=== PATIENT | male | born 1940 | race Caucasian/White ===

== ENCOUNTER 2020-06-04 09:22 | Observation (INO) | payer MEDICARE, OTHER, SELFPAY ==
[2020-06-04] VITALS (11 sets, daily range): BP systolic 111–154; BP diastolic 63–90; PULSE 68–90; RESP 16–21; TEMP 36.3–37; O2SAT 94–99; BMI 25.8
--- NOTE | 2020-06-04 09:24 | CT_ITS ---
WS: [id number] CT HEAD TECHNIQUE: Noncontrast CT of the head obtained from the skullbase to the vertex. CLINICAL INFORMATION: AMS COMPARISON: None. DLP: [id number] scans at [facility] use at least one of these dose optimization techniques: automat ed exposure control; mA and/or kV adjustment per patient size (includes targeted exams where dose is matched to clinical indication); or iterative reconstruction. FINDINGS: No evidence of intracranial hemorrhage or mass effect. Ventricular system and basal cisterns are mccann nt. Moderate small vessel changes with moderate parenchymal volume loss. Chronic lacunar infarcts lef t caudate, right basal ganglia and right thalamus. No extra-axial fluid collections. No evidence of m ass or mass effect. Normal zimmerman-white differentiation. Paranasal sinuses and mastoid air cells are well aerated. Small retention cyst right frontal sinus. . Normal visualized soft tissues. CT/CT head wo con* [id number] IMPRESSION: 1. No evidence of intracranial hemorrhage or mass effect. 2. Moderate small vessel changes with moderate parenchymal volume loss. 3. Chronic lacunar infarcts described above. 4. No acute intracranial findings.
--- NOTE | 2020-06-04 09:24 | XR_ITS ---
WS: [id number] Portable AP upright chest, 06/04/2020 Clinical Data: AMS Comparison: None. Findings: No nodules, masses or effusions are seen. The heart is normal. The pulmonary vascularity is not increased. No pneumonia or pneumothorax is seen. The aortic arch and descending aorta show calci fication and tortuosity. Midline sternotomy sutures are present. There are monitor leads on the chest wall. XR/XR chest 1V portable [id number] Impression: Atherosclerosis.
--- NOTE | 2020-06-04 09:26 | ECG_ITS ---
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 Measurements Intervals [place] Rate: 85 P: 51 W[place]: 191 QRS: -29 QRSD: 101 T: 75 QT: 385 QTc: 459 Interpretive Statements SINUS RHYTHM BORDERLINE LEFT AXIS DEVIATION [QRS AXIS < -20] MODERATE VOLTAGE CRITERIA FOR LVH, CONSIDER NORMAL VARIANT [MEETS CRITERIA IN ONE OF: R(aVL), S(V1), R(V5), R(V5/V6)+S(V1)] NONSPECIFIC T-WAVE ABNORMALITY No previous ECG available for comparison Electronically Signed On 06-05-2020 19:14:41 RELIEF MAP MODELER by Nika Bennett M.D. [email or web address] [facility] [facility].[email or web address]/OM/[id number].pdf
[2020-06-04 10:01] LABS: Basophils % 0.4 %; Eosinophils % 0.1 %; Hematocrit 45.6 % (42.0-52.0); Hemoglobin 16.1 g/dL (11.7-16.6); Lymphocytes # 1.7 10^3/uL (0.8-4.8); Lymphocytes % 15.1 %; Mean Corpuscular HGB Conc 35.3 g/dL (30.0-36.0); Mean Corpuscular Hemoglobin 31.6 pg (28.0-34.0); Mean Corpuscular Volume 89.6 fL (80-94); Mean Platelet Volume 10.1 fL (7.4-10.4); Monocytes # 0.7 10^3/uL (0.2-0.9); Monocytes % 5.9 %; Neutrophils # 8.91 10^3/uL (1.8-7.7); Nucleated Red Blood Cells % 0 %; Platelet Count 160 10^3/cmm (130-400); Red Blood Count 5.09 10^6/uL (4.1-5.3); Red Cell Distribution Width 12.2 % (12.1-15.1); White Blood Count 11.4 10^3/uL (4.0-10.0)
--- NOTE | 2020-06-04 10:12 | PC.PHAR ---
PTS STATES THE PT TAKES THE MEDICATIONS ENTERED-PT UNABLE TO VERIFY MEDICATIONS-PT BROUGHT IN MEDICATION BOTTLES ALSO-PT BROUGHT IN EMPTY BOTTLES FOR PREDNISONE 10MG FILLED ON 03/23/20 9 D/S AND ACYCLOVIR 800MG FILLED ON 03/23/20 7 D/S-PT BROUGHT IN ASPIRIN 325MG PTS THOUGHT THE PT TOOK 81MG ASPIRIN
[2020-06-04 10:16] LABS: INR 1.01 (0.8-1.2)
[2020-06-04 10:17] LABS: Partial Thromboplastin Time 30.2 SECONDS (23.9-36.7)
[2020-06-04 10:33] LABS: Alanine Aminotransferase 16 U/L (0-41); Albumin Level 4.1 g/dL (3.5-5.2); Alkaline Phosphatase 76 IU/L (40-130); Aspartate Amino Transferase 18 U/L (0-40); Blood Urea Nitrogen 14 mg/dL (8-23); Carbon Dioxide 23 mmol/L (22-29); Chloride 103 mmol/L (98-107); Creatinine Clr Calc Pharmacy 63.7157; Globulin 2.9 g/dL (1.3-4.6); Glucose 114 mg/dL (65-115); Osmolality Calculated 291 mOsm/kg (285-295); Sodium 140 mmol/L (136-145); Total Bilirubin 0.6 mg/dL (0.15-1.2)
[2020-06-04 10:36] LABS: Alcohol Level < 10 mg/dL (0-10)
[2020-06-04 11:08] LABS: Add Urine Microscopic? YES; Bilirubin Urine Neg (Negative); Blood Urine 2+ (Negative); Glucose Urine UA Norm (Normal); Ketones Urine Negative (Negative); Leukocyte Esterase Urine Negative (Negative); Nitrate Urine Negative (Negative); Protein Urine Neg (Negative); Specific Gravity, Urine 1.015 (1.005-1.030); Urine Appearance Clear (CLEAR); Urine Color Yellow (Yellow); Urobilinogen Urine Norm (Negative); pH Urine 6 (5-7)
[2020-06-04 11:12] LABS: Amphetamines Screen Urine Negative (Negative); Barbiturates Screen Urine Negative (Negative); Benzodiazepines Screen Urine Negative (Negative); Cocaine Screen Urine Negative (Negative); Opiate Screen Urine Negative (Negative); PCP Screen Urine Negative (Negative); THC Screen Urine Negative (Negative)
[2020-06-04 11:28] LABS: RBC Urine 0-4 /hpf (0-2)
[2020-06-04 11:29] LABS: Add Urine Culture? No; Bacteria Urine TRACE /hpf; Squamous Epithelial Cell Urine 0-4 /hpf (0-5)
--- NOTE | 2020-06-04 11:50 | MR_ITS ---
WS: [id number] MRI HEAD WITHOUT CONTRAST TECHNIQUE: Sagittal T1, T2 axial, T2 axial FLAIR, axial and coronal T1 images, axial susceptibility w eighted imaging, axial diffusion weighted images, and coronal T2 images were obtained. CLINICAL INFORMATION: seizure COMPARISON: CT June 04, 2020 FINDINGS: 2 or 3 tiny foci of restricted diffusion in the right greater than left periventricular white matter consistent with tiny acute foci of ischemia. No significant mass effect or midline shift. Advanced sm all vessel changes with moderate parenchymal volume loss. Small vessel changes in the farrah. Normal posterior fossa. Mild stenosis in the distal right intracranial vertebral artery. Otherwise no rmal vascular flow voids at the skull base. No extra-axial fluid collections. Paranasal sinuses and m astoid air cells are well aerated. 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 Normal optic sandi sm and pituitary infundibulum. Chronic focus of hemosiderin on the susceptibility weighted imaging in the right frontal lobe. MR/MR head wo con* [id number] IMPRESSION: 1. 2 or 3 tiny foci of acute ischemia in the nelson radiata periventricular wh ite matter 2. No other foci of restricted diffusion. 3. No significant mass effect or midline shift. 4. Advanced small vessel changes with moderate parenchymal volume loss. Small vessel changes in the farrah. 5. Chronic lacunar infarct left caudate. 6. Mild stenosis in the distal right intracranial vertebral artery. Otherwise normal vascular flow voids at the skull base. 7. 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 8. Small chronic focus of hemosiderin in the right frontal lobe measuring 4 mm . Notified Aj Bernstein MD at 06/04/2020 3:07 PM.
--- NOTE | 2020-06-04 11:51 | ED_ITS ---
HPI - Altered Mental Status General: Chief Complaint: Altered Mental Status Stated Complaint: AMS Time Seen by Provider: 06/04/20 09:24 Source: family and EMS History of Present Illness: HPI narrative: Patient presents to emergency de partment with complaint of altered mental status. According to the she found him on the floor this morning unresponsive. He was foaming at the mouth and shaking. No history of seizures in the past. He had abrasions and bruising all over his face and head. Patient unable to give us any history. He is very altered and confused. He cannot seem to remember anything past about 10 seconds. Review of Systems General: Reports: ROS unobtainable due to medical condition PFS ED PFS: Medical History (Updated 06/04/20 @ 13:22 by Alex Ordonez MD) Dyslipidemia Hypertension Surgical History History of mitral valve replacement with bioprosthetic valve Family History (Updated 06/04/20 @ 13:12 by Alex Ordonez MD) Mother CAD (coronary artery disease) Father , Old age, in his 90s No problems noted. Social History (Updated 06/04/20 @ 13:12 by Alex Ordonez MD) Smoking and tobacco status: never smoked Alcohol intake: never Physical Exam Const: COMMON NORMALS: no acute distress, average body habitus, patient oriented x3, no limitations, healthy appearing, alert and well nourished ORIENTATION/CONSCIOUSNESS: not oriented to person, not oriented to place and not oriented to time HENMT: COMMON NORMALS: normocephalic, atraumatic, hearing grossly normal bilaterally, external ears normal, EAC's normal, TM's normal bilaterally, Normal external nose present, Normal nasal mucous membranes and turbinates present, moist oral mucous membranes, oropharynx normal, dentition normal and gingiva normal HEAD & SCALP: normocephalic and atraumatic NOSE: Normal external nose present and Normal nasal mucous membranes and turbinates present EXTERNAL EAR: Yes external ears normal EXTERNAL AUDITORY CANAL: EAC's normal TYMPANIC MEMBRANE: TM's normal bilaterally Eye: COMMON NORMALS: Equal, round and reactive pupils present, EOMs intact bilaterally, conjunctivae normal, no scleral icterus, no papilledema, normal visual lang by confrontation and fundi normal bilaterally CONJUNCTIVA: Yes conjunctivae normal PUPIL: Yes Equal, round and reactive pupils present DIRECT OPHTHALMOSCOPY: Yes no papilledema and Yes fundi normal bilaterally Neck/C-Spine: COMMON NORMALS: full ROM, no lymphadenopathy, supple, no meningeal signs, Thyroid normal and No carotid bruits THYROID: Thyroid normal Resp: COMMON NORMALS: normal respiratory effort, No retractions, No use of accessory muscles, clear to auscultation bilaterally and percussion normal AUSCULTATION: clear to auscultation bilaterally PERCUSSION: percussion normal GI: COMMON NORMALS: Normal to inspection, nondistended, normoactive bowel sounds present, Soft to palpation, non-tender, No hepatosplenomegaly present, no masses and no bruits PALPATION: Yes Soft to palpation and Yes No hepatosplenomegaly present Extremity: COMMON NORMALS: normal to inspection, full ROM, capillary refill normal, no joint enlargement, no clubbing, cyanosis or edema, no calf tenderness and no pedal edema Neuro: COMMON NORMALS: patient oriented x3 SENSORIUM/ORIENTATION: Yes alert, No oriented to person, No oriented to place and No oriented to time MENINGEAL SIGNS: Yes no meningeal signs CRANIAL NERVES: Yes CN normal except as noted COORDINATION/BALANCE: [id number] test normal SPEECH: speech normal SENSORY EXAM: Yes extremities MOTOR EXAM: 5/5 motor strength present throughout COORDINATION: [id number] test normal Course Vital Signs: Vital signs: Vital Signs Temperature 98.6 F 06/04/20 09:22 Pulse Rate 68 06/04/20 13:00 Respiratory Rate 18 06/04/20 13:00 Blood Pressure 153/90 06/04/20 13:00 Pulse Oximetry 99 06/04/20 13:00 MDM - Altered Mental Status MDM Narrative: Medical decision making narrative: Patient is significantly improved since here in the ER. No longer disoriented. I suspect patient had a seizure although no history of seizures in the past. The patient was just very postictal upon initial arrival in the ER. Will admit patient to the hospitalist for further evaluation and treatment of new onset seizures. Given IV Keppra here in the ER. Lab Data: Labs: Lab Results 06/04/20 06/04/20 06/04/20 Range/Units 09:50 09:50 09:50 WBC 11.4 H (4.0-10.0) 10^3/ uL RBC 5.09 (4.1-5.3) 10^6/u L Hgb 16.1 (11.7-16.6) g/dL Hct 45.6 (42.0-52.0) % MCV 89.6 (80-94) fL MCH 31.6 (28.0-34.0) pg MCHC 35.3 (30.0-36.0) g/dL RDW 12.2 (12.1-15.1) % Plt Count 160 (130-400) 10^3/c mm MPV 10.1 (7.4-10.4) fL Neut % (Auto) 78.0 % Lymph % (Auto) 15.1 % [place] % (Auto) 5.9 % Eos % (Auto) 0.1 % Baso % (Auto) 0.4 % Neut # (Auto) 8.91 H (1.8-7.7) 10^3/u L Lymph # (Auto) 1.7 (0.8-4.8) 10^3/u L [place] # (Auto) 0.7 (0.2-0.9) 10^3/u L Eos # (Auto) 0.0 (0.0-0.8) 10^3/u L Baso # (Auto) 0.0 (0.0-0.1) 10^3/u L Nucleated RBC % (a uto) 0 % Nucleated RBCs # 0.0 /100WBC PT 13.60 (12.1-14.9) SECO NDS INR 1.01 (0.8-1.2) APTT 30.2 (23.9-36.7) SECO NDS Sodium 140 (136-145) mmol/L Potassium 4.0 (3.5-5.1) mmol/L Chloride 103 (98-107) mmol/L Carbon Dioxide 23 (22-29) mmol/L Anion Gap 18.0 (5-19) BUN 14 (8-23) mg/dL Creatinine 1.0 (0.7-1.2) mg/dL GFR Calculation Not Reportable Glucose 114 (65-115) mg/dL Calculated Osmolal ity 291 (285-295) mOsm/k g Calcium 9.0 (8.5-10.5) mg/dL Total Bilirubin 0.6 (0.15-1.2) mg/dL AST 18 (0-40) U/L ALT 16 (0-41) U/L Alkaline Phosphata se 76 (40-130) IU/L Total Protein 7.0 (6.6-8.7) g/dL Albumin 4.1 (3.5-5.2) g/dL Globulin 2.9 (1.3-4.6) g/dL Urine Color (Yellow) Urine Appearance (CLEAR) Urine pH (5-7) Ur Specific Gravit y (1.005-1.030) Urine Protein (Negative) Urine Glucose (UA) (Normal) Urine Ketones (Negative) Urine Blood (Negative) Urine Nitrate (Negative) Urine Bilirubin (Negative) Urine Urobilinogen (Negative) mg/dL Ur Leukocyte Lyn ase (Negative) Urine RBC (0-2) /hpf Urine WBC (0-5) /hpf Ur Squamous Epith Cells (0-5) /hpf Amorphous Sediment Urine Bacteria (NONE) /hpf Urine Opiates Scre en (Negative) ng/mL Ur Barbiturates Sc reen (Negative) ng/mL Ur Phencyclidine S crn (Negative) ng/mL Ur Amphetamines Sc reen (Negative) ng/mL U Benzodiazepines Scrn (Negative) ng/mL Urine Cocaine Scre en (Negative) ng/mL U Marijuana (THC) Screen (Negative) ng/mL Ethyl Alcohol < 10 (0-10) mg/dL 06/04/20 06/04/20 Range/Units 10:48 10:48 WBC (4.0-10.0) 10^3/ uL RBC (4.1-5.3) 10^6/u L Hgb (11.7-16.6) g/dL Hct (42.0-52.0) % MCV (80-94) fL MCH (28.0-34.0) pg MCHC (30.0-36.0) g/dL RDW (12.1-15.1) % Plt Count (130-400) 10^3/c mm MPV (7.4-10.4) fL Neut % (Auto) % Lymph % (Auto) % [place] % (Auto) % Eos % (Auto) % Baso % (Auto) % Neut # (Auto) (1.8-7.7) 10^3/u L Lymph # (Auto) (0.8-4.8) 10^3/u L [place] # (Auto) (0.2-0.9) 10^3/u L Eos # (Auto) (0.0-0.8) 10^3/u L Baso # (Auto) (0.0-0.1) 10^3/u L Nucleated RBC % (a uto) % Nucleated RBCs # /100WBC PT (12.1-14.9) SECO NDS INR (0.8-1.2) APTT (23.9-36.7) SECO NDS Sodium (136-145) mmol/L Potassium (3.5-5.1) mmol/L Chloride (98-107) mmol/L Carbon Dioxide (22-29) mmol/L Anion Gap (5-19) BUN (8-23) mg/dL Creatinine (0.7-1.2) mg/dL GFR Calculation Glucose (65-115) mg/dL Calculated Osmolal ity (285-295) mOsm/k g Calcium (8.5-10.5) mg/dL Total Bilirubin (0.15-1.2) mg/dL AST (0-40) U/L ALT (0-41) U/L Alkaline Phosphata se (40-130) IU/L Total Protein (6.6-8.7) g/dL Albumin (3.5-5.2) g/dL Globulin (1.3-4.6) g/dL Urine Color Yellow (Yellow) Urine Appearance Clear (CLEAR) Urine pH 6 (5-7) Ur Specific Gravit y 1.015 (1.005-1.030) Urine Protein Neg (Negative) Urine Glucose (UA) Norm (Normal) Urine Ketones Negative (Negative) Urine Blood 2+ H (Negative) Urine Nitrate Negative (Negative) Urine Bilirubin Neg (Negative) Urine Urobilinogen Norm (Negative) mg/dL Ur Leukocyte Lyn ase Negative (Negative) Urine RBC 0-4 H (0-2) /hpf Urine WBC None (0-5) /hpf Ur Squamous Epith Cells 0-4 H (0-5) /hpf Amorphous Sediment Not Reportable Urine Bacteria Trace (NONE) /hpf Urine Opiates Scre en Negative (Negative) ng/mL Ur Barbiturates Sc reen Negative (Negative) ng/mL Ur Phencyclidine S crn Negative (Negative) ng/mL Ur Amphetamines Sc reen Negative (Negative) ng/mL U Benzodiazepines Scrn Negative (Negative) ng/mL Urine Cocaine Scre en Negative (Negative) ng/mL U Marijuana (THC) Screen Negative (Negative) ng/mL Ethyl Alcohol (0-10) mg/dL Discharge Plan Discharge Patient Disposition: Admitted As Inpatient Clinical Impression: New onset seizure Altered mental status Qualifiers: Altered mental status type: disorientation Qualified Code(s): R41.0 - Disorientation, unspecified Condition: Stable Coding Level of Care Code ED Hvac R Instructor for Jorge Luis Fwd Exam Comprehensive
--- NOTE | 2020-06-04 12:01 | PC.NURSE ---
Pt moved to room 16
--- NOTE | 2020-06-04 13:04 | PM.HP ---
Providers/Chief Complaint Chief Complaint: AMS History of Present Illness Verónica Armas is a 80 year old male was brought to ER after he was found on the floor unresponsive. He was foaming at the mouth and shaking. He had bruising all over his face and had and some small abrasions. He had no previous history of seizures. He initially was postictal but gradually improved after Keppra was given. He was oriented to self and place during my evaluation. He could not recall where he lives but he was able to tell me that they moved to the area from [place] 2 years ago. He did not know the year and told me 2005. He was however able to recall name of president of [facility], [place]. On review of system he denied any complaints except minimal achiness of his upper back. Denied headache. Denied any focal neurological findings. He had normal peripheral vision during my evaluation. He had no focal neurological findings. His past medical history significant for mitral valve, porcine replacement in 2017. He is not on any anticoagulation. He reports that he is usually active and was waiting for spring time to do some house renovations. His head CT is unremarkable but did show chronic lacunar infarcts. MRI was requested and currently pending. Review of Systems Narrative: Except as mentioned above Const: Denies: fever(s) or chills Eyes: Denies: change in vision ENMT: Denies: throat pain or change in hearing Card: Denies: chest pain, edema or lightheadedness Resp: Denies: dyspnea or productive cough GI: Denies: abdominal pain, nausea, vomiting, dysphagia, diarrhea, constipation, hematochezia or melena Musc: Denies: joint pain or joint swelling Skin/Breast: Denies: rash or erythema Neuro: Denies: headache(s) or weakness in extremities Psych: Denies: depression or suicidal ideation Endo: Denies: excessive sweating Yayo/Lymph: Denies: easy bleeding or tender lymph nodes All/Imm: Denies: throat swelling Medications/Allergies Home Medications Medication Instructions Recorded Confirmed Last Taken Type acetaminophen [Tylenol Extra 1,000 mg PO PRN 06/04/20 06/04/20 Unknown History Strength] aspirin 325 mg PO QAM 06/04/20 06/04/20 Unknown History loratadine [Claritin] 10 mg PO PRN 06/04/20 06/04/20 Unknown History metoprolol succinate 25 mg PO BID 06/04/20 06/04/20 Unknown History multivitamin,[id number] See Rx Instructions .ROUTE .COMPLEX 06/04/20 06/04/20 Unknown History [Complete Multivitamin] rosuvastatin 10 mg PO DAILY 06/04/20 06/04/20 Unknown History Allergies Allergy/AdvReac Type Severity Reaction Status Date / Time azithromycin Allergy Unknown Verified 06/04/20 10:06 codeine Allergy ADR/ALGY-Pa Verified 06/04/20 10:06 lpitations PFSH Acute PFSH: Medical History (Updated 06/04/20 @ 13:22 by Alex Ordonez MD) Dyslipidemia Hypertension Surgical History History of mitral valve replacement with bioprosthetic valve Family History (Updated 06/04/20 @ 13:12 by Alex Ordonez MD) Mother CAD (coronary artery disease) Father , Old age, in his 90s No problems noted. Social History (Updated 06/04/20 @ 13:12 by Alex Ordonez MD) Smoking and tobacco status: never smoked Alcohol intake: never Vitals/I&O/Wt Last Vital Signs Temp 98.6 F 06/04/20 09:22 Pulse 82 06/04/20 11:04 Resp 17 06/04/20 11:04 BP 154/84 06/04/20 11:04 Pulse Ox 96 06/04/20 11:04 Weight last 48 hrs Weight 81.647 kg Physical Exam Const: COMMON NORMALS: no acute distress and alert HENMT: COMMON NORMALS: normocephalic and atraumatic (Except as mentioned.) HEAD & SCALP: normocephalic Eye: COMMON NORMALS: EOMs intact bilaterally, conjunctivae normal and no scleral icterus CONJUNCTIVA: Yes conjunctivae normal Neck/C-Spine: COMMON NORMALS: no lymphadenopathy and no meningeal signs Lymph: LYMPHATIC: no lymphadenopathy noted Chest: COMMONS NORMALS: normal palpation of entire chest wall Resp: COMMON NORMALS: No use of accessory muscles and clear to auscultation bilaterally AUSCULTATION: clear to auscultation bilaterally Cardio: COMMON NORMALS: regular rate, regular rhythm and No murmurs present (Cardio) RATE: regular rate RHYTHM: regular rhythm OTHER: No lower extremity edema GI: COMMON NORMALS: Soft to palpation and non-tender PALPATION: Yes Soft to palpation RECTAL EXAM: Yes deferred : COMMON NORMALS: Yes no CVA tenderness BLADDER/KIDNEY EXAM: Yes no CVA tenderness Back/Pelvis: COMMON NORMALS: no CVA tenderness and thoracic and lumbar spine normal to inspection Extremity: COMMON NORMALS: normal to inspection and capillary refill normal Neuro: COMMON NORMALS: no focal motor deficits SENSORIUM/ORIENTATION: Yes alert MENINGEAL SIGNS: Yes no meningeal signs Psych: COMMON NORMALS: mental status grossly normal, Normal thought process present and cooperative THOUGHT PROCESS: Normal thought process present Skin: COMMON NORMALS: no rashes or lesions noted GENERAL SKIN EXAM: no rashes or lesions noted Data : 06/04/20 09:50 06/04/20 09:50 A&P Assessment and plan (1) Altered mental status: Status: Acute Qualifiers: Altered mental status type: disorientation Qualified Code(s): R41.0 - Disorientation, unspecified (2) New onset seizure: Status: Acute (3) Hypertension: Status: Acute (4) Dyslipidemia: Status: Acute (5) Syncopal episodes: Status: Acute Additional A&P Information PLAN: Continue Keppra Awaiting MRI for further evaluation Will request echocardiogram and carotid artery ultrasound. Trend cardiac enzymes Closely monitor on telemetry. Seizure precautions. If remains stable we will likely be able to dismiss patient home tomorrow with outpatient neurology follow-up. Attestations Medical Necessity Statement*: Patient with what appears to be new onset of seizure requires observation for close monitoring, treatment and evaluation. I expect patient will require less than two midnights. Time Spent in Patient Care: Greater than 35 minutes (>than 50% of time spent in counselling and/or direct pt care on unit). Coding Level of Care Code Acute Pharmaceutical Sales Representative for Jorge Luis Daniels Diagnoses Altered mental status R41.0 Altered mental status type: disorientation New onset seizure R56.9 Hypertension I10 Dyslipidemia E78.5 Syncopal episodes R55
--- NOTE | 2020-06-04 13:19 | USCV_ITS ---
Verónica Armas Age: 80 Gender: M : 1940 Exam Date: 06/04/2020 14:15 Ordering Phys: Alex Ordonez MD Technologist: Alicia Larson Exam Location: [facility] [place] Indication: SYNCOPE BP: 132 / 77 HR: 80 Rhythm: Sinus Technical Quality: Adequate MEASUREMENTS (Male / Female) Normal Values 2D ECHO LV Diastolic Diameter PLAX 3.2 cm 4.2 - 5.9 / 3.9 - 5.3 cm LV Systolic Diameter PLAX 2.0 cm LV Chamber Size 2.8 cm IVS Diastolic Thickness 1.4 cm 0.6 - 1.0 / 0.6 - 0.9 cm IVS Systolic Thickness 1.4 cm LVPW Diastolic Thickness 1.4 cm 0.6 - 1.0 / 0.6 - 0.9 cm LVPW Systolic Thickness 1.8 cm RV Chamber Size 2.0 cm LVOT Diameter 2.1 cm LV Ejection Fraction 2D Teich 70.4 % LV Ejection Fraction MOD 2C 47.7 % LV Ejection Fraction 2C AL 47.5 % LA Diameter 4.5 cm LA Width 3.3 cm LA Height 5.2 cm RA Width 3.3 cm RA Height 4.2 cm Aorta at Sinotubular Diameter 3.7 cm M-MODE LV Diastolic Diameter MM 5.3 cm 4.2 - 5.9 / 3.9 - 5.3 cm LV Systolic Diameter MM 4.2 cm LV Ejection Fraction MM Teich 43.7 % IVS Diastolic Thickness MM 1.2 cm 0.6 - 1.0 / 0.6 - 0.9 cm IVS Systolic Thickness MM 1.2 cm LVPW Diastolic Thickness MM 1.2 cm 0.6 - 1.0 / 0.6 - 0.9 cm LVPW Systolic Thickness MM 1.8 cm RV Diastolic Diameter MM 2.1 cm Aortic Annulus Diameter 3.7 cm LA Ao Ratio MM 1.4 MV E Point Septal Separation 0.8 cm DOPPLER AV Peak Velocity 179.0 cm/s LVOT Peak Velocity 81.0 cm/s AV Area Cont Eq vti 1.8 cm squared AV Area Cont Eq pk 1.6 cm squared MV Area PHT 2.2 cm squared Mitral E to A Ratio 0.8 MV E' Velocity 100.5 cm/s Mitral E to MV E' Ratio 19.5 Mitral E to LV E' Lateral Ratio 15.9 Mitral E to LV E' Septal Ratio 25.5 TR Peak Velocity 189.9 cm/s TR Peak Gradient 14.4 mmHg TR Mean Velocity 106.3 cm/s TR Mean Gradient 4.9 mmHg TR Velocity Time Integral 28.8 cm TV Peak E Velocity 73.0 cm/s Right Atrial Pressure 3.0 mmHg Pulmonary Artery Systolic Pressu 17.4 mmHg PV Peak Velocity 61.0 cm/s RV Acceleration Time 0.1 s RV Ejection Time 0.3 s RV AcT/ET 0.4 FINDINGS Left Ventricle Normal left ventricular size and systolic function, EF 65 %. Mild left ventricular hypertrophy. Grade I/IV diastolic dysfunction (abnormal relaxation filling pattern), normal to mildly elevated filling pressures. Right Ventricle The right ventricle is normal in size and function. Right Atrium The right atrium is normal in size. Left Atrium Mildly increased left atrial size. Mitral Valve The bioprosthetic valve at the mitral position appears to be well-seated. The mitral valv area by pressure half-time method was calculated to be 2.2 cm squared. Aortic Valve Thickened aortic valve. Aortic valve sclerosis. Tricuspid Valve No gross abnormalities noted Pulmonic Valve Pulmonic valve not well visualized. Pericardium Normal pericardium without effusion. Aorta Normal ascending aorta dimension. CONCLUSIONS Normal left ventricular size and systolic function, EF 65 %. Mild left ventricular hypertrophy. Grade I/IV diastolic dysfunction (abnormal relaxation filling pattern), normal to mildly elevated filling pressures. No gross wall motion normalities The bioprosthetic valve at the mitral position appears to be well-seated. The mitral valv area by pressure half-time method was calculated to be 2.2 cm squared. Mildly increased left atrial size. Features of the aortic valve sclerosis. No obvious intracardiac masses No previous study is available for comparison. Technically somewhat difficult study because of poor ultrasonic window Dr Nika Bennett MD FAC (Electronically Signed) Final Date: 05 June 2020 11:30 S
--- NOTE | 2020-06-04 13:20 | USCV_ITS ---
Verónica Armas Age: 80 Gender: M : 1940 Exam Date: 06/04/2020 13:55 Ordering Phys: Alex Ordonez MD Technologist: Alicia Larson [place] [facility] [place]: SYNCOPE Risk Factors: Unknown Previous Vascular Surgery: MV REPLACED Right Brachial BP: / Left Brachial BP: / Right Left Velocity (cm/s) Spectral Plaque Velocity (cm/s) Spectral Plaque Syst/Diast Broadening Syst/Diast Broadening 69.10/ 7.90 Prox CCA 94.10 / 16.50 47.10/ 10.70 Mid CCA 62.80 / 10.20 54.20/ 12.10 Distal CCA 71.40 / 13.30 59.90/ 17.10 Homo Prox ICA 41.80 / 9.80 313.80/79.70 Homo Mid ICA 60.40 / 19.40 260.70/77.20 Distal ICA 85.40 / 20.80 79.20 ECA 76.90 6.67 ICA/CCA 1.36 Antegrade Vertebral Antegrade 142.2/ 52.30 cm/s 45.80/ 12.50 cm/s 0 Tri Subclavian Bi 326.9 109.8 0 0 FINDINGS Heavy heterogeneous irregular plaques at the mid and distal internal carotid artery on the right side Mild to moderate plaques at the bifurcations bilaterally. Intimal thickening in the common carotid arteries bilaterally. CONCLUSIONS Heavy heterogeneous irregular plaques at the mid and distal internal carotid artery on the right side, suggestive of hemodynamically significant stenosis Mild to moderate plaques at the left bifurcation with less than 50% stenosis. Intimal thickening in the common carotid arteries bilaterally. No previous studies available for comparison Consider CTA, to better evaluate the distal carotid artery on the right side Dr Nika Bennett MD [facility] (Electronically Signed) Final Date: 05 June 2020 11:35 S
--- NOTE | 2020-06-04 13:21 | ECG_ITS ---
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 Measurements Intervals [place] Rate: 83 P: 76 UT: 200 QRS: -4 QRSD: 114 T: 59 QT: 401 QTc: 472 Interpretive Statements SINUS RHYTHM MODERATE INTRAVENTRICULAR CONDUCTION DELAY [110+ ms QRS DURATION] NONSPECIFIC T-WAVE ABNORMALITY Compared to ECG 06/04/2020 09:35:57 Intraventricular conduction delay now present T-wave abnormality still present Electronically Signed On 06-05-2020 19:18:01 SHANK SANDER by Nika Bennett M.D. [id number]
[2020-06-04 14:56] LABS: Troponin(5th) Baseline 24 ng/L (0-15)
--- NOTE | 2020-06-04 15:21 | ECG_ITS ---
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 Measurements Intervals [place] Rate: 79 P: 58 NE: 199 QRS: -19 QRSD: 105 T: 72 QT: 382 QTc: 438 Interpretive Statements SINUS RHYTHM NONSPECIFIC T-WAVE ABNORMALITY Compared to ECG 06/04/2020 14:13:21 Intraventricular conduction delay no longer present T-wave abnormality still present Electronically Signed On 06-05-2020 19:33:28 STRATEGIC ACCOUNT MANAGER by Nika Bennett M.D. [email or web address] grenada[facility].[employer]/store/OM/[id number]
[2020-06-04] MEDS: enoxaparin 40 mg/0.4 mL Syringe SUBCUT (15:46)
[2020-06-04] MEDS: lactated ringers 1,000 ML 75 ML IV (15:46)
[2020-06-04] MEDS: aspirin 81 mg Chew Tablet 324 MG PO (15:46)
[2020-06-04 19:46] LABS: Troponin 5 2HR 30.93 ng/L (0-15)
[2020-06-04] MEDS: levETIRAcetam 500 mg Tablet 750 MG PO (20:24)
[2020-06-04] MEDS: metoprolol succinate ER (24 HR) 25 mg Tablet PO (20:25)
[2020-06-05 01:47] VITALS: O2SAT 98
[2020-06-05 04:36] VITALS: BP 106/57; PULSE 63; RESP 18; TEMP 37.1; O2SAT 95
[2020-06-05] MEDS: lactated ringers 1,000 ML 75 ML IV (05:10)
[2020-06-05 06:38] LABS: Basophils # 0.1 10^3/uL (0.0-0.1); Basophils % 0.5 %; Eosinophils % 0.1 %; Hematocrit 40.4 % (42.0-52.0); Hemoglobin 14.4 g/dL (11.7-16.6); Lymphocytes # 2.4 10^3/uL (0.8-4.8); Lymphocytes % 26.7 %; Mean Corpuscular HGB Conc 35.6 g/dL (30.0-36.0); Mean Corpuscular Hemoglobin 31.7 pg (28.0-34.0); Mean Platelet Volume 10.4 fL (7.4-10.4); Monocytes # 0.7 10^3/uL (0.2-0.9); Monocytes % 8.1 %; Neutrophils # 5.88 10^3/uL (1.8-7.7); Neutrophils % 64.4 %; Nucleated Red Blood Cells % 0 %; Platelet Count 142 10^3/cmm (130-400); Red Blood Count 4.54 10^6/uL (4.1-5.3); Red Cell Distribution Width 12.7 % (12.1-15.1); White Blood Count 9.1 10^3/uL (4.0-10.0)
[2020-06-05 07:23] LABS: INR 1.16 (0.8-1.2)
[2020-06-05 07:24] LABS: Partial Thromboplastin Time 31.7 SECONDS (23.9-36.7)
--- NOTE | 2020-06-05 07:25 | CTR_ITS ---
PROCEDURE INFORMATION: Exam: CT Angiography Head With Contrast, Arteries Exam date and time: 06/05/2020 10:09 AM Age: 80 years old Clinical indication: Other: Fell, confusion; Additional info: Stroke TECHNIQUE: Imaging protocol: Computed tomography angiography of the head with intravenous contrast. 3D rendering (Not supervised by radiologist): MIP and/or 3D reconstructed images were created by the technologist. Radiation optimization: All CT scans at this facility use at least one of these dose optimization techniques: automated exposure control; mA and/or kV adjustment per patient size (includes targeted exams where dose is matched to clinical indication); or iterative reconstruction. Contrast material: OMNI 350; Contrast volume: 95 ml; Contrast route: INTRAVENOUS (IV); COMPARISON: No relevant prior studies available. RADIATION DOSE METRICS: Total DLP (mGy-cm): 2381.37 FINDINGS: ANTERIOR CIRCULATION: Right internal carotid artery: Unremarkable. Intracranial segment is patent with no significant stenosis. No aneurysm. Right middle cerebral artery: Unremarkable. No occlusion or significant stenosis. No aneurysm. Right anterior cerebral artery: Unremarkable. No occlusion or significant stenosis. No aneurysm. Left internal carotid artery: Unremarkable. Intracranial segment is patent with no significant stenosis. No aneurysm. Left middle cerebral artery: Unremarkable. No occlusion or significant stenosis. No aneurysm. Left anterior cerebral artery: Unremarkable. No occlusion or significant stenosis. No aneurysm. POSTERIOR CIRCULATION: Right vertebral artery: Unremarkable. No occlusion or significant stenosis. No aneurysm. Left vertebral artery: Unremarkable. No occlusion or significant stenosis. No aneurysm. Basilar artery: Unremarkable. No occlusion or significant stenosis. No aneurysm. Right posterior cerebral artery: Unremarkable. No occlusion or significant stenosis. No aneurysm. Left posterior cerebral artery: Unremarkable. No occlusion or significant stenosis. No aneurysm. Brain: There is generalized chronic atrophy. Decreased white matter density indicates chronic small vessel white matter ischemia. No intracranial hemorrhage is seen. Cerebral ventricles: Ventricles are prominent due to chronic atrophy.. Bones/joints: Unremarkable. No acute fracture. Soft tissues: Unremarkable. IMPRESSION: No large vessel stenosis or occlusion. PROCEDURE INFORMATION: Exam: CT Angiography Neck With Contrast Exam date and time: 06/05/2020 10:09 AM Age: 80 years old Clinical indication: Other: Fell, confusion; Additional info: Stroke TECHNIQUE: Imaging protocol: Computed tomography angiography of the neck with intravenous contrast. 3D rendering (Not supervised by radiologist): MIP and/or 3D reconstructed images were created by the technologist. Radiation optimization: All CT scans at this facility use at least one of these dose optimization techniques: automated exposure control; mA and/or kV adjustment per patient size (includes targeted exams where dose is matched to clinical indication); or iterative reconstruction. Contrast material: OMNI 350; Contrast volume: 95 ml; Contrast route: INTRAVENOUS (IV); COMPARISON: No relevant prior studies available. RADIATION DOSE METRICS: Total DLP (mGy-cm): 2381.37 FINDINGS: Right common carotid artery: No stenosis. No dissection or occlusion. Right internal carotid artery: There is prominent calcified atherosclerotic plaque at the origin of the right internal carotid artery with severe greater than 70% stenosis. Right external carotid artery: No occlusion or stenosis of the origin. Right vertebral artery: No stenosis. No dissection or occlusion. Left common carotid artery: No stenosis. No dissection or occlusion. Left internal carotid artery: There is mild calcified plaquing at the origin of the left internal carotid artery with mild less than 50% stenosis. Left external carotid artery: No occlusion or stenosis of the origin. Left vertebral artery: No stenosis. No dissection or occlusion. Bones/joints: Chronic degenerative changes are present in the cervical spine. There are no acute bony abnormalities.. Soft tissues: Normal. No significant soft tissue swelling. CT/CT angio headneck* [id number] IMPRESSION: 1. Prominent atherosclerotic plaque at the origin of the right internal carotid artery with severe greater than 70% stenosis. 2. Mild plaquing at the origin of the left internal carotid artery with mild less than 50% stenosis. REFERENCES: NASCET CRITERIA. The degree of internal carotid artery stenosis is based on NASCET criteria. Normal is no stenosis. Mild is less than 50% stenosis. Moderate is 50-69% stenosis. Severe is 70% to 99% stenosis. Total occlusion is no detectable patent lumen. Radiation Dose CTDIVOL = (mGy): DLP = 2381.37~2381.37 (mGy-cm)
[2020-06-05 07:47] LABS: NT Pro B Type Natriuretic Pept 694 pg/mL (0-450); Procalcitonin 0.07 ng/mL (0-0.5); Thyroid Stimulating Hormone 0.57 uIU/mL (0.27-4.20)
[2020-06-05 07:58] LABS: Alanine Aminotransferase 13 U/L (0-41); Albumin Level 3.2 g/dL (3.5-5.2); Alkaline Phosphatase 60 IU/L (40-130); Anion Gap 10.7 (5-19); Aspartate Amino Transferase 19 U/L (0-40); Blood Urea Nitrogen 12 mg/dL (8-23); Calcium 8.4 mg/dL (8.5-10.5); Carbon Dioxide 24 mmol/L (22-29); Chloride 106 mmol/L (98-107); Chol HDL Ratio 2.64 mg/dL (1.0-5.00); Cholesterol 119 mg/dL (0-200); Creatinine Clr Calc Pharmacy 79.6446; Globulin 2.9 g/dL (1.3-4.6); Glucose 92 mg/dL (65-115); HDL Cholesterol 45 mg/dL (60-100); LDL Cholesterol Calculated 56 mg/dL (50-129); LDL HDL Ratio 1.24 RATIO (0.00-3.22); Magnesium 2.2 mg/dL (1.7-2.3); Osmolality Calculated 283 mOsm/kg (285-295); Potassium 3.7 mmol/L (3.5-5.1); Sodium 137 mmol/L (136-145); Total Bilirubin 0.7 mg/dL (0.15-1.2); Total Protein 6.1 g/dL (6.6-8.7); Triglycerides 88 mg/dL (0-150)
[2020-06-05 08:00] VITALS: BP 133/79; PULSE 75; RESP 18; TEMP 36.9; O2SAT 95
[2020-06-05 08:40] LABS: Estmated Average Glucose 111; Hemoglobin A1C 5.5 % (4.0-6.0)
[2020-06-05] MEDS: levETIRAcetam 500 mg Tablet 750 MG PO (09:35)
[2020-06-05] MEDS: atorvastatin 40 mg Tablet PO (09:36)
[2020-06-05] MEDS: metoprolol succinate ER (24 HR) 25 mg Tablet PO (09:36)
[2020-06-05] MEDS: pantoprazole DR 40 mg Tablet PO (09:36)
[2020-06-05 09:42] VITALS: PULSE 76; O2SAT 96
[2020-06-05] MEDS: iohexol 350 mg/mL 100 mL Btl IV (10:29)
[2020-06-05 11:41] VITALS: BP 128/70; PULSE 66; RESP 17; TEMP 36.4; O2SAT 97
[2020-06-05] MEDS: enoxaparin 40 mg/0.4 mL Syringe SUBCUT (12:56)
[2020-06-05] MEDS: clopidogrel 75 mg Tablet PO (12:56)
[2020-06-05] MEDS: aspirin 81 mg EC Tablet PO (12:56)
--- NOTE | 2020-06-05 14:04 | PM.DCS ---
Discharge Providers Date of Admission: 06/04/20 14:03 Date of Discharge: June 05, 2020 Attending Provider at Admission: Alex Ordonez MD Attending Provider at Discharge: Alex Ordonez MD Diagnoses at Discharge Discharge Diagnosis (1) Altered mental status: Status: Acute Qualifiers: Altered mental status type: disorientation Qualified Code(s): R41.0 - Disorientation, unspecified (2) New onset seizure: Status: Acute (3) Hypertension: Status: Acute (4) Dyslipidemia: Status: Acute (5) Syncopal episodes: Status: Acute (6) Acute cardioembolic stroke: Status: Acute Permanent problem details: Present on admission (7) Peripheral vascular disease: Status: Acute Permanent problem details: With severe right carotid artery stenosis. Reason for Visit Reason for Visit: [facility] Hospital Course Hospital Course Patient presented with altered mental status and syncopal episode. He was found to have acute stroke involving right and left hemisphere. Those were described as tiny. Although it is unusual but it appears that patient had associated seizure therefore patient was started on Keppra and outpatient follow-up with neurology will be requested. Patient was further evaluated and found to have right carotid artery stenosis with occlusion of more than 70%. Discussed with Dr. Bennett this morning who evaluated the patient's echocardiogram and does not appear to have any intracardiac sources of embolic event. Patient was not noted to be in atrial fibrillation during hospitalization. Patient thinks that he could possibly have short episodes of atrial fibrillation during his valve surgery. We have discussed regarding risks and benefits of anticoagulation and at this point patient opted to continue with aspirin and Plavix and to have event monitor. We have discussed that when patient presented he has bruises on his left and right side of the head which are suggestive of acute episode of seizure. This can definitely predispose patient to bleeding therefore we agreed that therapeutic anticoagulation will be placed on hold unless we have evidence of atrial fibrillation. This morning patient denies any shortness of breath or chest pain. Denies any focal neurological findings. He is ambulating without difficulty and wants to go home. Physical Exam Narrative: EXAM NARRATIVE: Alert and oriented x3. Lungs are clear and heart is regular. No focal neurological findings. Discharge Data Data Completed and Pending: Completed Studies During Hospitalization Category Date Time Status CT angio headneck * [id number] Rout ine Cat Scan 06/05/20 07:[address] head wo con* 7 0450 Urgent Cat Scan 06/04/20 09:24 Completed XR chest 1V pelon ble [id number] Urgent Exams 06/04/20 09:24 Completed MR head wo con* 7 0551 Stat MRI 06/04/20 11:50 Completed CV carotid duplex BI* [id number] Urgent Ultrasound 06/04/20 13:20 Completed CV echo complete* [id number] Urgent Ultrasound 06/04/20 13:19 Completed Pending at discharge Category Date Time Status Complete Blood Co unt w/Auto AM LABS Lab 06/06/20 04:00 Ordered Complete Blood Co unt w/Auto AM LABS Lab 06/07/20 04:00 Ordered Comprehensive Met abolic Panel AM LA BS Lab 06/06/20 04:00 Ordered Comprehensive Met abolic Panel AM LA BS Lab 06/07/20 04:00 Ordered Magnesium AM LABS Lab 06/06/20 04:00 Ordered Magnesium AM LABS Lab 06/07/20 04:00 Ordered Troponin(5th) 6 h our. Timed Lab 06/04/20 20:19 Ordered Labs from last 24 hours 06/05/20 06/05/20 06/05/20 06:25 06:25 06:25 WBC RBC Hgb Hct MCV MCH MCHC RDW Plt Count MPV Neut % (Auto) Lymph % (Auto) [place] % (Auto) Eos % (Auto) Baso % (Auto) Neut # (Auto) Lymph # (Auto) [place] # (Auto) Eos # (Auto) Baso # (Auto) Nucleated RBC % (a uto) Nucleated RBCs # PT 15.20 H INR 1.16 APTT 31.7 Sodium 137 Potassium 3.7 Chloride 106 Carbon Dioxide 24 Anion Gap 10.7 BUN 12 Creatinine 0.8 GFR Calculation Not Reportable Glucose 92 Estimat Average Gl ucose 111 Hemoglobin A1c 5.5 Calculated Osmolal ity 283 L Calcium 8.4 L Magnesium 2.2 Total Bilirubin 0.7 AST 19 ALT 13 Alkaline Phosphata se 60 Troponin T Baselin e Troponin T 120 Min milagro Delta Troponin T NT-Pro-B Natriuret Pep 694 H Total Protein 6.1 L Albumin 3.2 L Globulin 2.9 Triglycerides 88 Cholesterol 119 LDL Cholesterol, C alc 56 HDL Cholesterol 45 L LDL/HDL Ratio 1.24 Cholesterol/HDL Ra reuben 2.64 Procalcitonin 0.07 TSH 0.57 0206/04/20 06/04/20 06:25 19:02 17:09 WBC 9.1 RBC 4.54 Hgb 14.4 Hct 40.4 L MCV 89.0 MCH 31.7 MCHC 35.6 RDW 12.7 Plt Count 142 MPV 10.4 Neut % (Auto) 64.4 Lymph % (Auto) 26.7 [place] % (Auto) 8.1 Eos % (Auto) 0.1 Baso % (Auto) 0.5 Neut # (Auto) 5.88 Lymph # (Auto) 2.4 [place] # (Auto) 0.7 Eos # (Auto) 0.0 Baso # (Auto) 0.1 Nucleated RBC % (a uto) 0 Nucleated RBCs # 0.0 PT INR APTT Sodium Potassium Chloride Carbon Dioxide Anion Gap BUN Creatinine GFR Calculation Glucose Estimat Average Gl ucose Hemoglobin A1c Calculated Osmolal ity Calcium Magnesium Total Bilirubin AST ALT Alkaline Phosphata se Troponin T Baselin e Troponin T 120 Min milagro 30.93 H Cancelled Delta Troponin T Not Reportable Cancelled NT-Pro-B Natriuret Pep Total Protein Albumin Globulin Triglycerides Cholesterol LDL Cholesterol, C alc HDL Cholesterol LDL/HDL Ratio Cholesterol/HDL Ra reuben Procalcitonin TSH 06/04/20 06/04/20 16:36 14:19 WBC RBC Hgb Hct MCV MCH MCHC RDW Plt Count MPV Neut % (Auto) Lymph % (Auto) [place] % (Auto) Eos % (Auto) Baso % (Auto) Neut # (Auto) Lymph # (Auto) [place] # (Auto) Eos # (Auto) Baso # (Auto) Nucleated RBC % (a uto) Nucleated RBCs # PT INR APTT Sodium Potassium Chloride Carbon Dioxide Anion Gap BUN Creatinine GFR Calculation Glucose Estimat Average Gl ucose Hemoglobin A1c Calculated Osmolal ity Calcium Magnesium Total Bilirubin AST ALT Alkaline Phosphata se Troponin T Baselin e 24 H Troponin T 120 Min milagro Cancelled Delta Troponin T Cancelled NT-Pro-B Natriuret Pep Total Protein Albumin Globulin Triglycerides Cholesterol LDL Cholesterol, C alc HDL Cholesterol LDL/HDL Ratio Cholesterol/HDL Ra reuben Procalcitonin TSH Vitals: Last Vital Signs Temp 97.5 F L 06/05/20 11:41 Pulse 66 06/05/20 11:41 Resp 17 06/05/20 11:41 BP 128/70 06/05/20 11:41 Pulse Ox 97 06/05/20 11:41 Discharge Plan Discharge Patient Disposition: Home Condition: Stable Prescriptions: New levetiracetam 500 mg Tablet 500 mg PO Q12H Qty: 60 RF: 0 pantoprazole 40 mg Tablet,Delayed Release (Dr/Ec) 40 mg PO DAILY Qty: 14 RF: 0 aspirin 81 mg tablet,delayed release (DR/EC) 81 mg PO DAILY Qty: 30 RF: 0 clopidogrel [Plavix] 75 mg tablet 75 mg PO DAILY Qty: 30 RF: 0 Continued Tylenol Extra Strength 500 mg Tablet 1,000 mg PO PRN RF: 0 metoprolol succinate 25 mg tablet extended release 24 hr 25 mg PO BID RF: 0 Claritin 10 mg Tablet 10 mg PO PRN RF: 0 Complete Multivitamin Tablet See Rx Instructions .ROUTE .COMPLEX RF: 0 rosuvastatin 10 mg tablet 10 mg PO DAILY RF: 0 Discontinued aspirin 325 mg Tablet 325 mg PO QAM RF: 0 Discharge Orders: Discharge Order (Routine); Ordered 06/05/20 Ordered By: Alex Ordonez Other Ambulatory Orders: [place] cardiac event monitor (Routine) Timeframe: [id number] Facility: [facility] - Location: Cardiac Diagnostic Laboratory Ordered By: Alex Ordonez Referrals: Isis Augustin MD [Physician] - 1 week (Earliest possible) Nika Bennett MD [Physician] - 1 month Quinn Pope MD [Physician] - 1 week Discharge Diet: Usual diet Discharge Activity: Increase activity as tolerated Activity Restrictions/Additional Instructions: Please call your doctor or present to emergency department if your condition worsens or you develop diarrhea, lightheadedness, fatigue or see blood in your stool or black stool. Please return early next week to have event monitor for 30 days as we have discussed. 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
[2020-06-05 16:06] VITALS: BP 128/70; PULSE 66; RESP 17; TEMP 36.4; O2SAT 97
--- NOTE | 2020-06-07 09:24 | PC.SOCIAL ---
Called [facility] in [place]. Scheduled Primary care appt with Karlene MONTANEZ for 06/14/2020 at 3pm. Called and updated patient and he was agreeable to attend appt. Sent email to Nimesh to request one of them add this provider for primary care physician to EHR.
== END 2020-06-05 16:07 | disposition home or self-care (01) ==
LOC: ER 12:10 → MEDSURG 17:52
PROVIDERS: Admitting Provider Internal Medicine; Emergency Provider Emergency Medicine; PCP Registered Nurse; Visit Provider Internal Medicine
DX: R41.0 Disorientation, unspecified (principal); R56.9 Unspecified convulsions; I65.21 Occlusion and stenosis of right carotid artery; I10 Essential (primary) hypertension; E78.5 Hyperlipidemia, unspecified; R55 Syncope and collapse; I63.9 Cerebral infarction, unspecified; I73.9 Peripheral vascular disease, unspecified; Z79.82 Long term (current) use of aspirin; Z82.49 Family history of ischemic heart disease and other diseases of the circulatory system; Z83.3 Family history of diabetes mellitus
CPT/HCPCS: 36415; 70450; 70496; 70498; 70551; 71045; 80053; 80061; 80306; 80307; 81001; 83036; 83735; 83880; 84145; 84443; 84484; 85025; 85610; 85730; 93005; 93306; 93880; 96361; 96372; 96374; 96375; 97161; 99285; G0378; J1650; J1953; Q9967

== ENCOUNTER → 2020-06-30 14:35 | Outpatient (BNVA) | payer MEDICARE, OTHER, SELFPAY | PROVIDERS: PCP Registered Nurse; Visit Provider Nurse Practitioner | DX: R56.9 Unspecified convulsions (principal); R29.90 Unspecified symptoms and signs involving the nervous system | CPT/HCPCS: 99204 ==

== ENCOUNTER → 2020-08-25 09:40 | Outpatient (BNVA) | payer MEDICARE, OTHER, SELFPAY | PROVIDERS: PCP Registered Nurse; Visit Provider Specialist | DX: R56.9 Unspecified convulsions (principal) | CPT/HCPCS: 95816 ==

== ENCOUNTER 2020-11-01 09:54 | Emergency (ER) | payer MEDICARE, OTHER, SELFPAY ==
--- NOTE | 2020-11-01 | CT_ITS ---
Verónica Armas [address] HEAD TECHNIQUE: Noncontrast CT of the head obtained from the skullbase to the vertex. CLINICAL INFORMATION: Acute metal status change. Post ictal. COMPARISON: June 04, 2020 DLP: All CT scans at [facility] use at least one of these dose optimization techniques: automated exposure control; mA and/or kV adjustment per patient size (includes targeted exams where dose is matched to clinical indication); or iterative reconstruction. FINDINGS: No evidence of intracranial hemorrhage or mass effect. Ventricular system and basal cisterns are patent. Moderate small vessel changes with moderate parenchymal volume loss. Chronic lacunar infarct right basal ganglia. No extra- axial fluid collections. No evidence of mass or mass effect. Normal zimmerman-white differentiation. Paranasal sinuses and mastoid air cells are well aerated. .Normal visualized soft tissues. IMPRESSION: 1. No evidence of intracranial hemorrhage or mass effect. 2. Moderate small vessel changes. Moderate parenchymal volume loss. 3. Chronic lacunar infarct right basal ganglia. 4. No acute intracranial findings. MTDD
[2020-11-01 10:07] VITALS: BP 147/82; PULSE 78; RESP 18; TEMP 36.8; O2SAT 96; BMI 25.8
--- NOTE | 2020-11-01 10:08 | ECG_ITS ---
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 Measurements Intervals [place] Rate: 74 P: 52 LA: 197 QRS: -20 QRSD: 113 T: 59 QT: 431 QTc: 478 Interpretive Statements SINUS RHYTHM MODERATE INTRAVENTRICULAR CONDUCTION DELAY [110+ ms QRS DURATION] MINIMAL VOLTAGE CRITERIA FOR LVH, CONSIDER NORMAL VARIANT [MEETS CRITERIA IN ONE OF: R(aVL), S(V1), R(V5), R(V5/V6)+S(V1)] NONSPECIFIC T-WAVE ABNORMALITY Compared to ECG 06/04/2020 16:21:22 Intraventricular conduction delay now present T-wave abnormality still present Electronically Signed On 11-01-2020 18:09:26 CDT by Dakotah Payne M.D. [id number]
--- NOTE | 2020-11-01 10:29 | ED_ITS ---
HPI - Seizure General: Chief Complaint: Seizure Stated Complaint: SEIZURE Time Seen by Provider: 11/01/20 09:55 History of Present Illness: HPI Narrative: 80-year-old male with a history of seizures presents via EMS in a postictal state he had a seizure witnessed by his his is not here at this time. According to his old chart he has a history of seizures and sees Maame Dr. Augustin he is listed as being on Keppra when I asked that he says he still been taking it however evidently told the nurse he had recently stopped it. Looking at his notes in the chart there is a question of whether or not he actually had a seizure I thought he might have just dozed off and fell asleep and fell out of a chair versus having a seizure he was initially started on Keppra and then in August of this year he had an EEG that was read as normal I cannot see was a direct order to stop the Keppra at that point but suspect that may be at the point to which it was stopped. After patient arrived here he had another AB sounds like seizure where he was just nonresponsive his eyes were open but he was not tracking he has no other focal neurologic deficits noted after a few minutes that resolved without any intervention he is talking to us again however he is still quite confused MD complaint: possible seizure Onset (ago): hour(s) Description of Episode: loss of consciousness and post-event confusion Witnessed: Yes - by Bystander Trauma: No Seizure History: Yes Place: Home Associated symptoms: Deny chest pain, chills, confusion, cough, diaphoresis, fever(s), anorexia, malaise, rash, short of breath, syncope or weakness Treatments prior to arrival: none Review of Systems Const: Denies: fever(s), chills, malaise or diaphoresis ENMT: Denies: throat pain, ear or mastoid pain, nasal discharge or nasal congestion Card: Denies: chest pain or syncope Resp: Denies: dyspnea, productive cough or non-productive cough GI: Denies: abdominal pain, nausea, vomiting, hematemesis, coffee ground emesis, diarrhea, constipation, bloating, hematochezia or melena : Denies: flank pain, dysuria, urinary frequency or urinary urgency Skin/Breast: Denies: rash or pruritus Neuro: Denies: confusion PFSH ED PFSH: Medical History Dyslipidemia Hypertension Seizure-like activity Stroke Surgical History History of mitral valve replacement with bioprosthetic valve Family History Mother CAD (coronary artery disease) Father , Old age, in his 90s No problems noted. Social History Smoking and tobacco status: never smoked Alcohol intake: never History of recent travel: No Physical Exam Const: COMMON NORMALS: no acute distress GENERAL APPEARANCE: cooperative and comfortable ORIENTATION/CONSCIOUSNESS: Yes awake HENMT: COMMON NORMALS: normocephalic, atraumatic, hearing grossly normal bilaterally and external ears normal HEAD & SCALP: normocephalic and atraumatic EXTERNAL EAR: Yes external ears normal Neck/C-Spine: COMMON NORMALS: no JVD Resp: COMMON NORMALS: normal respiratory effort, No retractions, No use of accessory muscles and clear to auscultation bilaterally AUSCULTATION: clear to auscultation bilaterally Cardio: COMMON NORMALS: no JVD, regular rate, regular rhythm and No murmurs present (Cardio) RATE: regular rate RHYTHM: regular rhythm GI: COMMON NORMALS: Soft to palpation and No hepatosplenomegaly present AUSCULTATION: Yes normoactive bowel sounds PALPATION: Yes Soft to palpation, No Tenderness to palpation present (GI), No Guarding due to palpation present (GI) and Yes No hepatosplenomegaly present Extremity: COMMON NORMALS: normal to inspection, capillary refill normal, no clubbing, cyanosis or edema, no calf tenderness and no pedal edema Skin: COMMON NORMALS: no rashes or lesions noted GENERAL SKIN EXAM: no rashes or lesions noted Course Vital Signs: Vital signs: Vital Signs Temperature 98.3 F 11/01/20 10:35 Pulse Rate 74 11/01/20 13:30 Respiratory Rate 22 H 11/01/20 13:30 Blood Pressure 132/73 11/01/20 13:10 Pulse Oximetry 93 11/01/20 13:30 MDM - Seizure MDM Narrative: Medical decision making narrative: Patient still cannot remember the particular events of how he got here we called and talked his she is not here but she states he has had seizures in the past they took him off of the medication a few months ago so he is not been taking regularly Keppra we will start him back on oral Keppra and have him follow-up with neurology. CT was unremarkable he says he feels fine prefer to go home I think that is okay as long as we start him on the Keppra for now until he radiata neurology can see him back. Lab Data: Labs: Lab Results 11/01/20 11/01/20 Range/Units 10:31 10:31 WBC 9.2 (4.0-10.0) 10^3/ uL RBC 4.72 (4.1-5.3) 10^6/u L Hgb 14.7 (11.7-16.6) g/dL Hct 43.8 (42.0-52.0) % MCV 92.8 (80-94) fL MCH 31.1 (28.0-34.0) pg MCHC 33.6 (30.0-36.0) g/dL RDW 12.2 (12.1-15.1) % Plt Count 176 (130-400) 10^3/c mm MPV 10.6 H (7.4-10.4) fL Neut % (Auto) 59.8 % Lymph % (Auto) 32.2 % [place] % (Auto) 6.8 % Eos % (Auto) 0.0 % Baso % (Auto) 0.5 % Neut # (Auto) 5.47 (1.8-7.7) 10^3/u L Lymph # (Auto) 3.0 (0.8-4.8) 10^3/u L [place] # (Auto) 0.6 (0.2-0.9) 10^3/u L Eos # (Auto) 0.0 (0.0-0.8) 10^3/u L Baso # (Auto) 0.1 (0.0-0.1) 10^3/u L Nucleated RBC % (a uto) 0 % Nucleated RBCs # 0.0 /100WBC Sodium 144 (136-145) mmol/L Potassium 4.1 (3.5-5.1) mmol/L Chloride 105 (98-107) mmol/L Carbon Dioxide 22 (22-29) mmol/L Anion Gap 21.1 H (5-19) BUN 14 (8-23) mg/dL Creatinine 1.0 (0.7-1.2) mg/dL GFR Calculation Not Reportable Glucose 115 (65-115) mg/dL Calculated Osmolal ity 299 H (285-295) mOsm/k g Calcium 8.6 (8.5-10.5) mg/dL Total Bilirubin 0.5 (0.15-1.2) mg/dL AST 20 (0-40) U/L ALT 17 (0-41) U/L Alkaline Phosphata se 83 (40-130) IU/L Total Protein 7.0 (6.6-8.7) g/dL Albumin 4.1 (3.5-5.2) g/dL Globulin 2.9 (1.3-4.6) g/dL Discharge Plan Discharge Patient Disposition: Home Clinical Impression: Seizure-like activity Condition: Stable Prescriptions: New Keppra 500 mg tablet 500 mg PO BID 14 Days Qty: 28 RF: 0 No Action acetaminophen [Tylenol Extra Strength] 500 mg Tablet 1,000 mg PO PRN RF: 0 metoprolol succinate 25 mg tablet extended release 24 hr 25 mg PO BID RF: 0 loratadine [Claritin] 10 mg Tablet 10 mg PO PRN RF: 0 rosuvastatin 10 mg tablet 5 mg PO EVERY OTHER DAY RF: 0 Complete Multivitamin Tablet See Rx Instructions .ROUTE .COMPLEX RF: 0 Plavix 75 mg tablet 75 mg PO DAILY@12 RF: 0 aspirin 81 mg tablet,delayed release (DR/EC) 81 mg PO DAILY@12 RF: 0 pantoprazole 40 mg tablet,delayed release (DR/EC) 40 mg PO DAILY PRN (Reason: Acid Reflux) RF: 0 Discharge Orders: Discharge ED (Routine); Ordered 11/01/20 Ordered By: Mazin Stewart Referrals: Karlene Esquivel FNP [Primary Care Provider] - Patient Instructions: Opioid Safety Activity Restrictions/Additional Instructions: Follow-up with Dr. Augustin within the week. Return if of problems. Coding Level of Care Code ED Topographical Drafter for Chg Fwd Exam Comprehensive
[2020-11-01 10:35] VITALS: BP 131/76; PULSE 76; RESP 18; TEMP 36.8
[2020-11-01 10:38] LABS: Basophils # 0.1 10^3/uL (0.0-0.1); Basophils % 0.5 %; Hematocrit 43.8 % (42.0-52.0); Hemoglobin 14.7 g/dL (11.7-16.6); Lymphocytes % 32.2 %; Mean Corpuscular HGB Conc 33.6 g/dL (30.0-36.0); Mean Corpuscular Hemoglobin 31.1 pg (28.0-34.0); Mean Corpuscular Volume 92.8 fL (80-94); Mean Platelet Volume 10.6 fL (7.4-10.4); Monocytes # 0.6 10^3/uL (0.2-0.9); Monocytes % 6.8 %; Neutrophils # 5.47 10^3/uL (1.8-7.7); Neutrophils % 59.8 %; Nucleated Red Blood Cells % 0 %; Platelet Count 176 10^3/cmm (130-400); Red Blood Count 4.72 10^6/uL (4.1-5.3); Red Cell Distribution Width 12.2 % (12.1-15.1); White Blood Count 9.2 10^3/uL (4.0-10.0)
[2020-11-01 10:59] LABS: Alanine Aminotransferase 17 U/L (0-41); Albumin Level 4.1 g/dL (3.5-5.2); Alkaline Phosphatase 83 IU/L (40-130); Anion Gap 21.1 (5-19); Aspartate Amino Transferase 20 U/L (0-40); Blood Urea Nitrogen 14 mg/dL (8-23); Calcium 8.6 mg/dL (8.5-10.5); Carbon Dioxide 22 mmol/L (22-29); Chloride 105 mmol/L (98-107); Creatinine Clr Calc Pharmacy 63.7157; Globulin 2.9 g/dL (1.3-4.6); Glucose 115 mg/dL (65-115); Osmolality Calculated 299 mOsm/kg (285-295); Potassium 4.1 mmol/L (3.5-5.1); Sodium 144 mmol/L (136-145); Total Bilirubin 0.5 mg/dL (0.15-1.2)
--- NOTE | 2020-11-01 11:02 | PC.PHAR ---
pt unable to verify medications-pts [place] states the pt takes the medications entered-PTS ROSUVASTATIN BOTTLE HAS 10MG PO QAM-PTS STATES THE PT TAKES 1/2 TAB (5MG) EVERY OTHER DAY-PTS STATES THE PTS LEVETIRACETAM WAS DCED A MONTH AGO-JOSE ALBERTO FROM DR DIEHL OFFICE STATES THE LEVETIRACETAM 500MG Q12H WAS DCED BY Brijesh LATHAM ON September
[2020-11-01 12:06] VITALS: BP 139/87; PULSE 77; RESP 18; O2SAT 95
[2020-11-01 13:10] VITALS: BP 132/73; PULSE 74; RESP 22
[2020-11-01 13:30] VITALS: PULSE 74; RESP 22; O2SAT 93
[2020-11-01 14:56] VITALS: BP 142/85; PULSE 74; RESP 20; O2SAT 96
--- NOTE | 2020-11-02 10:25 | DCPLANNER ---
information technology manager had message to schedule a follow up appointment for patient with neurology. information technology manager emailed patients information to the neurology clinic. Patients information will be printed and reviewed. Clinic will call patient with appointment information.
--- NOTE | 2020-11-03 07:32 | DCPLANNER ---
Patient has a follow up appointment scheduled for Sunday, November 03, 2020 at 9:[address] [facility] clinic. Clinic will call patient with appointment information.
[2020-11-07 11:32] LABS: Levetiracetam Keppra <2.0 mcg/mL
--- NOTE | 2020-12-09 11:18 | DCPLANNER ---
Patient had a follow up appointment scheduled for 11.03.[address] Augustin - patient did attend appointment.
== END 2020-11-01 15:01 | disposition home or self-care (01) ==
PROVIDERS: Emergency Provider Family Medicine; PCP Registered Nurse
DX: R56.9 Unspecified convulsions (principal); Z79.82 Long term (current) use of aspirin; Z79.02 Long term (current) use of antithrombotics/antiplatelets; E78.5 Hyperlipidemia, unspecified; I10 Essential (primary) hypertension; Z86.73 Personal history of transient ischemic attack (TIA), and cerebral infarction without residual deficits
CPT/HCPCS: 36415; 70450; 80053; 80177; 85025; 93005; 96374; 99284; J1953

== ENCOUNTER → 2020-11-03 09:17 | Outpatient (BNVA) | payer MEDICARE, OTHER, SELFPAY | PROVIDERS: PCP Registered Nurse; Visit Provider Nurse Practitioner | DX: G40.909 Epilepsy, unspecified, not intractable, without status epilepticus (principal); Z87.891 Personal history of nicotine dependence | CPT/HCPCS: 99213; 99214 ==

== ENCOUNTER 2021-01-17 09:13 | Outpatient (CLI) | payer MEDICARE, OTHER, SELFPAY ==
--- NOTE | 2021-01-17 09:30 | USCV_ITS ---
Verónica Armas Age: 80 Gender: M : 1940 Exam Date: 01/17/2021 09:33 Ordering Phys: Quinn Pope MD (Andy) ([email or web address] [place] Technologist: Exam Location: [facility] [place] Indication: OCCLUSION AND STENOSIS OF BILATERAL CAROTID ARTERIES Risk Factors: Previous Vascular Surgery: Right Brachial BP: / Left Brachial BP: / Right Left Velocity (cm/s) Spectral Plaque Velocity (cm/s) Spectral Plaque Syst/Diast Broadening Syst/Diast Broadening 67.30/ 5.50 Prox CCA 96.00 / 10.50 63.90/ 13.20 Mid CCA 71.00 / 13.10 69.50/ 15.40 Distal CCA 82.30 / 15.50 45.20/ 12.10 Prox ICA 82.80 / 21.00 330.40/88.30 Mid ICA 96.00 / 31.60 372.60/71.80 Distal ICA 124.90/ 40.80 98.10 ECA 107.80 5.36 ICA/CCA 1.30 Antegrade Vertebral Antegrade 102.5/ 22.10 cm/s 68.35/ 18.40 cm/s 0 Bi Subclavian Tri 104.5 138.0 0 0 FINDINGS Comparison:. 06/04/20. Diffuse bilateral scattered calcified plaque and intimal thickening throughout the common carotid arteries and extending through the bifurcation. No change in the high grade stenosis right ICA and mild on the left. Antegrade vertebral arteries. CONCLUSIONS No interval change in stenosis since prior exam. Right ICA stenosis 70-99%. Closer to 70%. Left ICA stenosis < 50%. Dr. Imani Marquez DO (Electronically Signed) Final Date: 17 January 2021 11:55 S
== END 2021-01-17 09:14 | disposition home or self-care (01) ==
LOC: US 09:16
PROVIDERS: PCP Registered Nurse; Visit Provider Thoracic Surgery (Cardiothoracic Vascular Surgery)
DX: I65.23 Occlusion and stenosis of bilateral carotid arteries (principal)
CPT/HCPCS: 93880

== ENCOUNTER 2021-05-02 07:21 | Emergency (ER) | payer MEDICARE, OTHER, SELFPAY ==
[2021-05-02 07:23] VITALS: BP 163/76; PULSE 85; RESP 16; TEMP 37.1; O2SAT 94; BMI 25.8
[2021-05-02 07:26] LABS: Glucose Point of Care 110 mg/dL (70-110)
[2021-05-02 07:30] VITALS: BP 145/84; PULSE 85; O2SAT 96
--- NOTE | 2021-05-02 07:54 | ED_ITS ---
HPI - Seizure General: Chief Complaint: Seizure Stated Complaint: SEIZURE, AMS Time Seen by Provider: 05/02/21 07:23 History of Present Illness: HPI Narrative: 81 year old male presents to ER via EMS for seizure and AMS. Patient has history of seizures. Per EMS report, patient had a seizure this morning and had AMS and was combative afterward. EMS called to scene and gave him Ativan. Patient unable to give good history, reports (who witnessed seizure) is on the way to ER. Patient seen in ER on 10/2020 for seizures, recommended to continue Keppra and follow-up with Dr. Augustin. Patient saw Dr. Augustin who said he had a high risk of seizure reoccurence and needs to stay Keppra 500mg BID and F/U in 6 months. Patient has not seen Dr. Augustin since 10/2020. complaint: seizure Onset (ago): hour(s) Witnessed: Yes - by Bystander (Patient's ) Seizure History: Yes Place: Home Associated symptoms: Deny chest pain, chills, fever(s) or malaise Treatments prior to arrival: benzodiazepines Review of Systems Const: Denies: fever(s), chills, body aches, change in appetite, fatigue or malaise ENMT: Denies: throat pain, nasal discharge or nasal congestion Card: Denies: chest pain, edema, dyspnea on exertion or orthopnea Resp: Denies: dyspnea or productive cough GI: Denies: abdominal pain, nausea, vomiting, diarrhea, constipation or bloating : Denies: flank pain, dysuria, urinary frequency or urinary urgency Skin/Breast: Denies: rash or pruritus [facility] ED PFSH: Medical History (Updated 05/02/21 @ 09:43 by Mazin Stewart DO) Carotid artery stenosis without cerebral infarction Dyslipidemia Hypertension Seizure disorder Seizure-like activity Stroke Surgical History History of mitral valve replacement with bioprosthetic valve Family History Mother CAD (coronary artery disease) Father , Old age, in his 90s No problems noted. Social History Alcohol intake: never History of recent travel: No Physical Exam Const: COMMON NORMALS: no acute distress GENERAL APPEARANCE: cooperative and comfortable ORIENTATION/CONSCIOUSNESS: Yes awake, Yes oriented to person, Yes oriented to place and Yes oriented to time HENMT: COMMON NORMALS: normocephalic, atraumatic, hearing grossly normal bilaterally, external ears normal, EAC's normal, Normal nasal mucous membranes and turbinates present, moist oral mucous membranes and oropharynx normal HEAD & SCALP: normocephalic and atraumatic NOSE: Normal nasal mucous membranes and turbinates present EXTERNAL EAR: Yes external ears normal EXTERNAL AUDITORY CANAL: EAC's normal Neck/C-Spine: COMMON NORMALS: full ROM and supple Resp: COMMON NORMALS: normal respiratory effort, No retractions, No use of accessory muscles and clear to auscultation bilaterally AUSCULTATION: clear to auscultation bilaterally Cardio: COMMON NORMALS: regular rate, regular rhythm and No murmurs present (Cardio) RATE: regular rate RHYTHM: regular rhythm GI: COMMON NORMALS: Soft to palpation and No hepatosplenomegaly present PALPATION: Yes Soft to palpation, No Tenderness to palpation present (GI), No Guarding due to palpation present (GI) and Yes No hepatosplenomegaly present Extremity: COMMON NORMALS: normal to inspection, capillary refill normal and no clubbing, cyanosis or edema Neuro: SENSORIUM/ORIENTATION: Yes oriented to person, Yes oriented to place and Yes oriented to time Skin: COMMON NORMALS: no rashes or lesions noted GENERAL SKIN EXAM: no rashes or lesions noted Course Vital Signs: Vital signs: Vital Signs Temperature 98.3 F 05/02/21 09:30 Pulse Rate 84 05/02/21 09:30 Respiratory Rate 14 05/02/21 09:30 Blood Pressure 166/93 05/02/21 09:30 Pulse Oximetry 95 05/02/21 09:30 MDM - Seizure MDM Narrative: Medical decision making narrative: Increase Keppra 750 p.o. twice daily. Patient is feeling much better postictal phase recovered no other changes in medications. Lab Data: Labs: Lab Results 05/02/21 05/02/21 05/02/21 07:23 07:25 07:25 WBC 9.2 10^3/uL 10^3/ uL (4.0-10.0) RBC 4.80 10^6/uL 10^6 /uL (4.1-5.3) Hgb 14.8 g/dL g/dL (11.7-16.6) Hct 42.7 % % (42.0-52.0) MCV 89.0 fl fl (80-94) MCH 30.8 pg pg (28.0-34.0) MCHC 34.7 g/dL g/dL (30.0-36.0) RDW 11.9 % L % (12.1-15.1) Plt Count 156 10^3/cmm 10^3 /cmm (130-400) MPV 10.6 fL H fL (7.4-10.4) Neut % (Auto) 73.8 % % Lymph % (Auto) 18.3 % % [place] % (Auto) 6.5 % % Eos % (Auto) 0.1 % % Baso % (Auto) 0.5 % % Neut # (Auto) 6.80 10^3/uL 10^3 /uL (1.8-7.7) Lymph # (Auto) 1.7 10^3/uL 10^3/ uL (0.8-4.8) [place] # (Auto) 0.6 10^3/uL 10^3/ uL (0.2-0.9) Eos # (Auto) 0.0 10^3/uL 10^3/ uL (0.0-0.8) Baso # (Auto) 0.1 10^3/uL 10^3/ uL (0.0-0.1) Nucleated RBC % (a uto) 0 % % Nucleated RBCs # 0.0 /100WBC /100W BC Sodium 141 mmol/L mmol/L (136-145) Potassium 4.0 mmol/L mmol/L (3.5-5.1) Chloride 105 mmol/L mmol/L (98-107) Carbon Dioxide 21 mmol/L L mmol/ L (22-29) Anion Gap 19.0 (5-19) BUN 10 mg/dL mg/dL (8-23) Creatinine 0.9 mg/dL mg/dL (0.7-1.2) GFR Calculation Not Reportable Glucose 119 mg/dL H mg/dL (65-115) POC Glucose 110 mg/dL mg/dL (70-110) Calculated Osmolal ity 292 mOsm/kg mOsm/ kg (285-295) Calcium 9.2 mg/dL mg/dL (8.5-10.5) Total Bilirubin 0.4 mg/dL mg/dL (0.15-1.2) AST 21 U/L U/L (0-40) ALT 14 U/L U/L (0-41) Alkaline Phosphata se 78 IU/L IU/L (40-130) Total Protein 6.6 g/dL g/dL (6.6-8.7) Albumin 3.8 g/dL g/dL (3.5-5.2) Globulin 2.8 g/dL g/dL (1.3-4.6) Discharge Plan Discharge Patient Disposition: Home Clinical Impression: Seizure disorder Condition: Stable Prescriptions: New Keppra 750 mg tablet 750 mg PO BID Qty: 60 RF: 0 Discontinued levetiracetam [Keppra] 500 mg tablet 500 mg PO BID Qty: 60 RF: 6 No Action Plavix 75 mg tablet 75 mg PO DAILY@12 Qty: 90 RF: 3 metoprolol succinate 25 mg tablet extended release 24 hr 25 mg PO BID RF: 0 loratadine [Claritin] 10 mg Tablet 2.5 mg PO DAILY PRN (Reason: Allergy Symptoms) RF: 0 rosuvastatin 10 mg tablet 10 mg PO EVERY OTHER DAY RF: 0 Complete Multivitamin Tablet See Rx Instructions .ROUTE .COMPLEX RF: 0 aspirin 81 mg tablet,delayed release (DR/EC) 81 mg PO DAILY@12 RF: 0 pantoprazole 40 mg tablet,delayed release (DR/EC) 40 mg PO DAILY@12 RF: 0 triamcinolone acetonide 0.5 % cream 1 applic TOPICAL PRN RF: 0 Voltaren Arthritis Pain 1 % Gel 2 - 4 g TOPICAL BID PRN (Reason: Pain) RF: 0 Discharge Orders: Discharge ED (Routine); Ordered 05/02/21 Ordered By: Mazin Stewart Referrals: Karlene Esquivel FNP [Primary Care Provider] - Patient Instructions: Opioid Safety Activity Restrictions/Additional Instructions: Increase Keppra to 750 mg twice daily recheck with your primary care doctor within the next 10 to 14 days advised no driving until cleared by neurology. Coding Level of Care Code ED Fiberglass Laminator for Velmag Fwd Exam Comprehensive
[2021-05-02 07:58] LABS: Basophils # 0.1 10^3/uL (0.0-0.1); Basophils % 0.5 %; Eosinophils % 0.1 %; Hematocrit 42.7 % (42.0-52.0); Hemoglobin 14.8 g/dL (11.7-16.6); Lymphocytes # 1.7 10^3/uL (0.8-4.8); Lymphocytes % 18.3 %; Mean Corpuscular HGB Conc 34.7 g/dL (30.0-36.0); Mean Corpuscular Hemoglobin 30.8 pg (28.0-34.0); Mean Platelet Volume 10.6 fL (7.4-10.4); Monocytes # 0.6 10^3/uL (0.2-0.9); Monocytes % 6.5 %; Neutrophils % 73.8 %; Nucleated Red Blood Cells % 0 %; Platelet Count 156 10^3/cmm (130-400); Red Cell Distribution Width 11.9 % (12.1-15.1); White Blood Count 9.2 10^3/uL (4.0-10.0)
[2021-05-02 08:00] VITALS: BP 171/87; PULSE 73; O2SAT 94
[2021-05-02 08:10] LABS: Alanine Aminotransferase 14 U/L (0-41); Albumin Level 3.8 g/dL (3.5-5.2); Alkaline Phosphatase 78 IU/L (40-130); Aspartate Amino Transferase 21 U/L (0-40); Blood Urea Nitrogen 10 mg/dL (8-23); Calcium 9.2 mg/dL (8.5-10.5); Carbon Dioxide 21 mmol/L (22-29); Chloride 105 mmol/L (98-107); Globulin 2.8 g/dL (1.3-4.6); Glucose 119 mg/dL (65-115); Osmolality Calculated 292 mOsm/kg (285-295); Sodium 141 mmol/L (136-145); Total Bilirubin 0.4 mg/dL (0.15-1.2); Total Protein 6.6 g/dL (6.6-8.7)
[2021-05-02 08:30] VITALS: BP 166/108; PULSE 72; O2SAT 96
[2021-05-02 09:30] VITALS: BP 166/93; PULSE 84; RESP 14; TEMP 36.8; O2SAT 95
--- NOTE | 2021-05-02 09:46 | PC.NURSE ---
spoke with , advised that patient is being discharged, she is on her way to get him
--- NOTE | 2021-05-02 09:54 | PC.NURSE ---
patient discharged to home with , discharge reviewed with
[2021-05-06 16:57] LABS: Levetiracetam Keppra 11.3 mcg/mL
== END 2021-05-02 10:28 | disposition home or self-care (01) ==
PROVIDERS: Emergency Provider Family Medicine; PCP Registered Nurse
DX: G40.909 Epilepsy, unspecified, not intractable, without status epilepticus (principal); Z79.02 Long term (current) use of antithrombotics/antiplatelets; Z79.82 Long term (current) use of aspirin; E78.5 Hyperlipidemia, unspecified; I10 Essential (primary) hypertension; Z86.73 Personal history of transient ischemic attack (TIA), and cerebral infarction without residual deficits
CPT/HCPCS: 36416; 80053; 80177; 82962; 85025; 99284

== ENCOUNTER → 2021-06-15 09:50 | Outpatient (BNVA) | payer MEDICARE, OTHER, SELFPAY | PROVIDERS: PCP Registered Nurse; Visit Provider Specialist | DX: G40.909 Epilepsy, unspecified, not intractable, without status epilepticus (principal) | CPT/HCPCS: 95816 ==

== ENCOUNTER → 2021-06-29 11:40 | Outpatient (BNVA) | payer MEDICARE, OTHER, SELFPAY | PROVIDERS: PCP Registered Nurse; Visit Provider Specialist | DX: G40.309 Generalized idiopathic epilepsy and epileptic syndromes, not intractable, without status epilepticus (principal); Z87.891 Personal history of nicotine dependence | CPT/HCPCS: 99214; 99215 ==

== ENCOUNTER 2021-07-09 07:39 | Inpatient (IN) | payer MEDICARE, OTHER, SELFPAY ==
[2021-07-09] VITALS (18 sets, daily range): BP systolic 122–175; BP diastolic 66–98; PULSE 70–87; RESP 16–18; TEMP 36.7–37.1; O2SAT 93–100; BMI 25.8
--- NOTE | 2021-07-09 07:56 | CTR_ITS ---
PROCEDURE INFORMATION: Exam: CT Head Without Contrast Exam date and time: 07/09/2021 8:16 AM Age: 81 years old Clinical indication: Altered mental status/memory loss; Additional info: AMS TECHNIQUE: Imaging protocol: Computed tomography of the head without contrast. Radiation optimization: All CT scans at this facility use at least one of these dose optimization techniques: automated exposure control; mA and/or kV adjustment per patient size (includes targeted exams where dose is matched to clinical indication); or iterative reconstruction. COMPARISON: CT head wo con* [id number] 11/01/2020 1:15 PM RADIATION DOSE METRICS: Total DLP (mGy-cm): 866.8 FINDINGS: Brain: No acute intracranial hemorrhage or mass effect. There is decreased attenuation in the periventricular white matter, likely from microvascular disease. There are small old lacunar infarcts in the basal ganglia regions bilaterally. No definite acute infarct by CT. MRI could be more sensitive/specific for detection, as clinically directed. Cerebral ventricles: Ventricle size is normal for age. Paranasal sinuses: Included paranasal sinuses are essentially clear. Mastoid air cells: No significant acute finding. Vasculature: Vascular calcifications in the internal carotid and vertebral basilar systems. Bones/joints: No definite acute skull fracture. Soft tissues: No significant acute finding. CT/CT head wo con* [id number] IMPRESSION: 1. No acute intracranial hemorrhage or mass effect. 2. Changes of microvascular disease, and small old lacunar infarcts. 3. No definite acute infarct by CT, see above. 4. Other findings discussed above.
--- NOTE | 2021-07-09 07:56 | XRR_ITS ---
PROCEDURE INFORMATION: Exam: XR Chest Exam date and time: 07/09/2021 7:08 AM Age: 81 years old Clinical indication: Other: AMS TECHNIQUE: Imaging protocol: XR of the chest. Views: 1 view. COMPARISON: CR XR chest 1V portable [id number] 06/04/2020 9:39 AM FINDINGS: Lungs: No CHF/pulmonary edema. Visible lungs appear essentially clear. Pleural spaces: No visible pneumothorax. No definite pleural fluid. Heart/Mediastinum: Heart size is upper range of normal. Vasculature: Stable aortic tortuosity. Bones/joints: Prior median sternotomy. XR/XR chest 1V portable [id number] IMPRESSION: 1. No definite CHF or pneumonia. 2. Other findings discussed above.
--- NOTE | 2021-07-09 08:04 | W.ED.AMS ---
HPI - Altered Mental Status General: Chief Complaint: Altered Mental Status Stated Complaint: AMS Time Seen by Provider: 07/09/21 07:50 History of Present Illness: Patient comes in by EMS after having multiple seizures this morning. Per EMS the patient's states that he had a seizure about 2 AM this morning at which time EMS was called but the patient refused to be transported. States that he had another episode where she found him confused. He appeared postictal. She did not witness the second seizure. The patient does have a history of seizure for which he takes Keppra. Review of Systems Const: Denies: fever(s) or body aches Eyes: Denies: change in vision or blurry vision ENMT: Denies: throat pain or odynophagia Card: Denies: chest pain or palpitations Resp: Denies: dyspnea or productive cough GI: Denies: abdominal pain, nausea or vomiting : Denies: flank pain or dysuria Musc: Denies: neck pain or back pain Skin/Breast: Denies: rash or pruritus Neuro: Denies: headache(s) or numbness in extremities Psych: Denies: anxiety or change in appetite Endo: Denies: polyuria or excessive sweating PFSH ED PFSH: Medical History Carotid artery stenosis without cerebral infarction Dyslipidemia Hypertension Seizure disorder Seizure-like activity Stroke Surgical History History of mitral valve replacement with bioprosthetic valve Family History Mother CAD (coronary artery disease) Father , Old age, in his 90s No problems noted. Social History Smoking and tobacco status: former smoker Alcohol intake: never History of recent travel: No Physical Exam Const: COMMON NORMALS: no acute distress, healthy appearing and alert HENMT: COMMON NORMALS: normocephalic and atraumatic HEAD & SCALP: normocephalic and atraumatic Eye: COMMON NORMALS: Equal, round and reactive pupils present and EOMs intact bilaterally PUPIL: Yes Equal, round and reactive pupils present Neck/C-Spine: COMMON NORMALS: full ROM and supple Resp: COMMON NORMALS: normal respiratory effort, No retractions and No use of accessory muscles Cardio: COMMON NORMALS: regular rate and regular rhythm RATE: regular rate RHYTHM: regular rhythm GI: COMMON NORMALS: Normal to inspection, nondistended, normoactive bowel sounds present, Soft to palpation and non-tender PALPATION: Yes Soft to palpation Back/Pelvis: COMMON NORMALS: thoracic and lumbar spine normal to inspection and no thoracic nor lumbar tenderness Extremity: COMMON NORMALS: normal to inspection and full ROM Neuro: SENSORIUM/ORIENTATION: Yes alert OTHER: Oriented x2 Psych: COMMON NORMALS: mental status grossly normal and cooperative Skin: COMMON NORMALS: no rashes or lesions noted and no wounds GENERAL SKIN EXAM: no rashes or lesions noted Course Vital Signs: Vital signs: Vital Signs Temperature 98.1 F 07/09/21 07:45 Pulse Rate 70 07/09/21 10:08 Respiratory Rate 16 07/09/21 10:08 Blood Pressure 175/98 07/09/21 10:08 Pulse Oximetry 100 07/09/21 10:08 MDM - Altered Mental Status Medical Decision Making Patient comes in by EMS after having multiple seizures this morning. Per EMS the patient's states that he had a seizure about 2 AM this morning at which time EMS was called but the patient refused to be transported. States that he had another episode where she found him confused. He appeared postictal. She did not witness the second seizure. The patient does have a history of seizure for which he takes Keppra. On physical exam here the patient does have some mild confusion, however he is alert and oriented x2 and answers questions and follows commands appropriately. Will check labs, CT, x-ray, and reassess. On reassessment the patient continues to be confused at times, and at times appears to have some word finding difficulty. I discussed the case with the hospitalist and we will admit the patient for further work-up and treatment of his altered mental status. Lab Data : 07/09/21 07:45 07/09/21 07:45 Radiology Impressions Chest X-Ray 07/09/21 07:56 IMPRESSION: 1. No definite CHF or pneumonia. 2. Other findings discussed above. Head CT 07/09/21 07:56 IMPRESSION: 1. No acute intracranial hemorrhage or mass effect. 2. Changes of microvascular disease, and small old lacunar infarcts. 3. No definite acute infarct by CT, see above. 4. Other findings discussed above. Laboratory Results WBC 12.7 10^3/uL (4.0-10.0) H 07/09/21 07:45 RBC 4.78 10^6/uL (4.1-5.3) 07/09/21 07:45 Hgb 15.1 g/dL (11.7-16.6) 07/09/21 07:45 Hct 43.8 % (42.0-52.0) 07/09/21 07:45 MCV 91.6 fl (80-94) 07/09/21 07:45 MCH 31.6 pg (28.0-34.0) 07/09/21 07:45 MCHC 34.5 g/dL (30.0-36.0) 07/09/21 07:45 RDW 12.1 % (12.1-15.1) 07/09/21 07:45 Plt Count 183 10^3/cmm (130-400) 07/09/21 07:45 MPV 10.7 fL (7.4-10.4) H 07/09/21 07:45 Neut % (Auto) 72.0 % 07/09/21 07:45 Lymph % (Auto) 19.3 % 07/09/21 07:45 [place] % (Auto) 7.7 % 07/09/21 07:45 Eos % (Auto) 0.1 % 07/09/21 07:45 Baso % (Auto) 0.5 % 07/09/21 07:45 Neut # (Auto) 9.11 10^3/uL (1.8-7.7) H 07/09/21 07:45 Lymph # (Auto) 2.4 10^3/uL (0.8-4.8) 07/09/21 07:45 [place] # (Auto) 1.0 10^3/uL (0.2-0.9) H 07/09/21 07:45 Eos # (Auto) 0.0 10^3/uL (0.0-0.8) 07/09/21 07:45 Baso # (Auto) 0.1 10^3/uL (0.0-0.1) 07/09/21 07:45 Nucleated RBC % (auto) 0 % 07/09/21 07:45 Nucleated RBCs # 0.0 /100WBC 07/09/21 07:45 Sodium 139 mmol/L (136-145) 07/09/21 07:45 Potassium 3.5 mmol/L (3.5-5.1) 07/09/21 07:45 Chloride 101 mmol/L (98-107) 07/09/21 07:45 Carbon Dioxide 25 mmol/L (22-29) 07/09/21 07:45 Anion Gap 16.5 (5-19) 07/09/21 07:45 BUN 14 mg/dL (8-23) 07/09/21 07:45 Creatinine 0.9 mg/dL (0.7-1.2) 07/09/21 07:45 GFR Calculation Not Reportable 07/09/21 07:45 Glucose 100 mg/dL (65-115) 07/09/21 07:45 Calculated Osmolality 289 mOsm/kg (285-295) 07/09/21 07:45 Lactate 1.5 mmol/L (0.5-2.2) 07/09/21 07:45 Calcium 9.0 mg/dL (8.5-10.5) 07/09/21 07:45 Magnesium 2.3 mg/dL (1.7-2.3) 07/09/21 07:45 Total Bilirubin 0.5 mg/dL (0.15-1.2) 07/09/21 07:45 AST 19 U/L (0-40) 07/09/21 07:45 ALT 18 U/L (0-41) 07/09/21 07:45 Alkaline Phosphatase 82 IU/L (40-130) 07/09/21 07:45 Total Protein 6.8 g/dL (6.6-8.7) 07/09/21 07:45 Albumin 4.2 g/dL (3.5-5.2) 07/09/21 07:45 Globulin 2.6 g/dL (1.3-4.6) 07/09/21 07:45 Urine Color Yellow (Yellow) 07/09/21 10:34 Urine Appearance Clear (CLEAR) 07/09/21 10:34 Urine pH 8 (5-7) H 07/09/21 10:34 Ur Specific [place] 1.015 (1.005-1.030) 07/09/21 10:34 Urine Protein Neg (Negative) 07/09/21 10:34 Urine Glucose (UA) Norm (Normal) 07/09/21 10:34 Urine Ketones Negative (Negative) 07/09/21 10:34 Urine Blood Neg (Negative) 07/09/21 10:34 Urine Nitrate Negative (Negative) 07/09/21 10:34 Urine Bilirubin Neg (Negative) 07/09/21 10:34 Prot Sulfosalicylic Acd Negative (Negative) 07/09/21 10:34 Urine Urobilinogen Norm mg/dL (Negative) 07/09/21 10:34 Ur Leukocyte Esterase Negative (Negative) 07/09/21 10:34 Salicylates < 0.3 mg/dL (3-10) L 07/09/21 07:45 Urine Opiates Screen Negative ng/mL (Negative) 07/09/21 10:34 Acetaminophen < 5.0 ug/mL (10-30) L 07/09/21 07:45 Ur Barbiturates Screen Negative ng/mL (Negative) 07/09/21 10:34 Ur Phencyclidine Scrn Negative ng/mL (Negative) 07/09/21 10:34 Ur Amphetamines Screen Negative ng/mL (Negative) 07/09/21 10:34 U Benzodiazepines Scrn Negative ng/mL (Negative) 07/09/21 10:34 Urine Cocaine Screen Negative ng/mL (Negative) 07/09/21 10:34 U Marijuana (THC) Screen Negative ng/mL (Negative) 07/09/21 10:34 Ethyl Alcohol < 10 mg/dL (0-10) 07/09/21 07:45 Discharge Plan Discharge Patient Disposition: Placed in Observation Clinical Impression: Altered mental status Coding Level of Care Code ED Small Business Consultant for Jorge Luis Fwjuan j Exam Comprehensive
[2021-07-09 08:19] LABS: Basophils # 0.1 10^3/uL (0.0-0.1); Basophils % 0.5 %; Eosinophils % 0.1 %; Hematocrit 43.8 % (42.0-52.0); Hemoglobin 15.1 g/dL (11.7-16.6); Lymphocytes # 2.4 10^3/uL (0.8-4.8); Lymphocytes % 19.3 %; Mean Corpuscular HGB Conc 34.5 g/dL (30.0-36.0); Mean Corpuscular Hemoglobin 31.6 pg (28.0-34.0); Mean Corpuscular Volume 91.6 fl (80-94); Mean Platelet Volume 10.7 fL (7.4-10.4); Monocytes % 7.7 %; Neutrophils # 9.11 10^3/uL (1.8-7.7); Nucleated Red Blood Cells % 0 %; Platelet Count 183 10^3/cmm (130-400); Red Blood Count 4.78 10^6/uL (4.1-5.3); Red Cell Distribution Width 12.1 % (12.1-15.1); White Blood Count 12.7 10^3/uL (4.0-10.0)
[2021-07-09 08:38] LABS: Alanine Aminotransferase 18 U/L (0-41); Albumin Level 4.2 g/dL (3.5-5.2); Alkaline Phosphatase 82 IU/L (40-130); Aspartate Amino Transferase 19 U/L (0-40); Blood Urea Nitrogen 14 mg/dL (8-23); Carbon Dioxide 25 mmol/L (22-29); Chloride 101 mmol/L (98-107); Globulin 2.6 g/dL (1.3-4.6); Glucose 100 mg/dL (65-115); Magnesium 2.3 mg/dL (1.7-2.3); Osmolality Calculated 289 mOsm/kg (285-295); Sodium 139 mmol/L (136-145); Total Bilirubin 0.5 mg/dL (0.15-1.2); Total Protein 6.8 g/dL (6.6-8.7)
[2021-07-09 09:06] LABS: Anion Gap 16.5 (5-19); Potassium 3.5 mmol/L (3.5-5.1)
[2021-07-09] MEDS: sodium chloride 0.9% 1,000 ML 999 ML IV (09:59)
[2021-07-09 10:01] LABS: Lactate (Lactic Acid level) 1.5 mmol/L (0.5-2.2)
[2021-07-09 10:19] LABS: Acetaminophen < 5.0 ug/mL (10-30); Salicylate < 0.3 mg/dL (3-10)
[2021-07-09 10:20] LABS: Alcohol Level < 10 mg/dL (0-10)
[2021-07-09 10:45] LABS: Charge for UA Resulting for Rev
[2021-07-09 11:00] LABS: Amphetamines Screen Urine Negative (Negative); Barbiturates Screen Urine Negative (Negative); Benzodiazepines Screen Urine Negative (Negative); Cocaine Screen Urine Negative (Negative); Opiate Screen Urine Negative (Negative); PCP Screen Urine Negative (Negative); THC Screen Urine Negative (Negative)
[2021-07-09 11:19] LABS: Urine Appearance Clear (CLEAR); Urine Color Yellow (Yellow); pH Urine 8 (5-7)
[2021-07-09 11:20] LABS: Bilirubin Urine Neg (Negative); Glucose Urine UA Norm (Normal); Ketones Urine Negative (Negative); Leukocyte Esterase Urine Negative (Negative); Nitrate Urine Negative (Negative); Protein Urine Neg (Negative); Specific Gravity, Urine 1.015 (1.005-1.030); Urobilinogen Urine Norm (Negative)
[2021-07-09 11:21] LABS: Add Urine Microscopic? NO; Blood Urine Neg (Negative); Sulfosalicylic Acid Urine Negative (Negative)
[2021-07-09 11:59] LABS: ABG PCO2 36.4 mmHg (35-45); ABG PH Result 7.44 (7.35-7.45); Arterial Blood Gas Hematocrit 45.5 % (42-52); Blood Gas Allen Test Pos; Blood Gas Operator Identificat MONRO; Blood Gas Sample Site Radial, left; Blood Gas Sample Type Arterial; HCO3 ABG 24.8 mmol/L (22-26); Oxygen Device ROOM AIR; PO2 ABG 70.5 mmHg (80.0-100.0)
[2021-07-09 12:10] LABS: Ammonia 32 umol/L (16-60)
--- NOTE | 2021-07-09 15:58 | PM.HP ---
Providers/Chief Complaint Admitting Physician: Alejandra Pandya MD Primary Care Provider: TARIK Irving Chief Complaint: AMS History of Present Illness Verónica Armas is a 81 year old male w/ h/o HTN, CVA, Seizure Dis, ICS came to the ED after having 2 episodes of generalized seizures witnessed by his the 1st one at 2am today. was post ictal after this. Did not to come to the ED then but after the 2 nd episode which was unwitnessed and pt was confused, he came to the ED via EMS. In the ED he still confused about things he normally would be able to answer. He denied CP, SOB, cough, BOUDREAUX, weakness, dizziness, F/C, trauma, dysuria. He is being admitted for Altered Mental Status, Seizure Review of Systems Narrative: Const:?? Denies: fever(s) o r body aches Eyes:?? Denies: change in vision or blurry v ision ENMT:?? Denies: throat cristy n or odynophagia Card:?? Denies: chest pain or palpitations Resp:?? Denies: dyspnea or productive cough GI:?? Denies: abdominal pain, nausea or vo miting :?? Denies: flank pain or dysuria Musc:?? Denies: neck pain or back pain Skin/Breast:?? Denies: rash or pr uritus Neuro:?? Denies: headache(s ) or numbness in e xtremities Psych:?? Denies: anxiety or change in appetit e Endo:?? Denies: polyuria o r excessive sweati ng Medications/Allergies Home Medications Medication Instructions Recorded Confirmed Last Taken Type loratadine 10 mg tablet (Claritin) 2.5 mg PO DAILY PRN 06/04/20 07/09/21 Unknown History metoprolol succinate 25 mg 25 mg PO BID 06/04/20 07/09/21 Unknown History tablet,extended release 24 hr rosuvastatin 10 mg tablet 10 mg PO EVERY OTHER DAY 06/04/20 07/09/21 Unknown History aspirin 81 mg tablet,delayed 81 mg PO DAILY@12 11/01/20 07/09/21 Unknown History release multivitamin,[id number] See Rx Instructions .ROUTE .COMPLEX 11/01/20 07/09/21 Unknown History pantoprazole 40 mg tablet,delayed 40 mg PO DAILY@12 11/01/20 07/09/21 Unknown History release clopidogrel 75 mg tablet (Plavix) 75 mg PO DAILY@12 #90 tab 03/02/21 07/09/21 Unknown Rx diclofenac sodium 1 % topical gel 2 - 4 g TOPICAL BID PRN 05/02/21 07/09/21 Unknown History (Voltaren Arthritis Pain) triamcinolone acetonide 0.5 % 1 applic TOPICAL PRN 05/02/21 07/09/21 Unknown History topical cream levetiracetam 750 mg tablet 750 mg PO BID #60 tab 06/27/21 07/09/21 Unknown Rx (Keppra) prednisone 20 mg tablet 10 - 20 mg PO DAILY PRN 07/09/21 07/09/21 Unknown History Allergies Allergy/AdvReac Type Severity Reaction Status Date / Time azithromycin Allergy Unknown Verified 06/29/21 10:57 codeine Allergy ADR/ALGY-Pa Verified 06/29/21 10:57 lpitations Penicillins Allergy Unknown Verified 06/29/21 10:57 PFSH Acute PFSH: Medical History Carotid artery stenosis without cerebral infarction Dyslipidemia Hypertension Seizure disorder Seizure-like activity Stroke Surgical History History of mitral valve replacement with bioprosthetic valve Family History Mother CAD (coronary artery disease) Father , Old age, in his 90s No problems noted. Social History Smoking and tobacco status: former smoker Alcohol intake: never History of recent travel: No Vitals/I&O/Wt Last Vital Signs Temp 98.1 F 07/09/21 07:45 Pulse 76 07/09/21 14:30 Resp 16 07/09/21 14:30 BP 152/80 07/09/21 14:30 Pulse Ox 98 07/09/21 14:30 Weight last 48 hrs Weight 81.647 kg Physical Exam Narrative: Const:?? COMMON NORMALS: no acute distress, h ealthy appearing a nd alert HENMT:?? COMMON NORMALS: no rmocephalic and at raumatic? HEAD & S CALP: normocephali c and atraumatic Eye:?? COMMON NORMALS: Eq ual, round and gini ctive pupils prese nt and EOMs intact bilaterally? PUPI L: Yes Equal, roun d and reactive pup ils present Neck/C-Spine:?? COMMON NORMALS: fu ll ROM and supple Resp:?? COMMON NORMALS: no rmal respiratory e ffort, No retracti ons and No use of accessory muscles Cardio:?? COMMON NORMALS: re gular rate and reg ular rhythm? RATE: regular rate? RHY THM: regular rhyth m GI:?? COMMON NORMALS: No rmal to inspection , nondistended, no rmoactive bowel so unds present, Soft to palpation and non-tender? PALPAT ION: Yes Soft to p alpation Back/Pelvis:?? COMMON NORMALS: th oracic and lumbar spine normal to in spection and no th oracic nor lumbar tenderness Extremity:?? COMMON NORMALS: no rmal to inspection and full ROM Neuro:?? SENSORIUM/ORIENTAT ION: Yes alert? OT HER: Oriented x2 Psych:?? COMMON NORMALS: me ntal status grossl y normal and coope rative Skin:?? COMMON NORMALS: no rashes or lesions noted and no woun ds? GENERAL SKIN E XAM: no rashes or lesions noted Data : 07/09/21 07:45 07/09/21 07:45 A&P Assessment and plan (1) Altered mental status: Persiting confusion. 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 Will require at least midnight stay in hospitalization Time Spent in Patient Care: 50 min Coding Level of Care Code Acute Correspondence School Teacher for Chg Fwd Diagnoses Altered mental status R41.82 Generalized epilepsy G40.309 Hypertension I10 Carotid artery stenosis without cerebral infarction I65.29 Peripheral vascular disease I73.9 Dyslipidemia E78.5
[2021-07-09] MEDS: enoxaparin 40 mg/0.4 mL Syringe SUBCUT (18:34)
[2021-07-09] MEDS: metoprolol succinate ER (24 HR) 25 mg Tablet PO (18:34)
[2021-07-09] MEDS: levETIRAcetam 500 mg Tablet 750 MG PO (18:34)
[2021-07-10] VITALS (12 sets, daily range): BP systolic 109–164; BP diastolic 57–80; PULSE 66–78; RESP 16–18; TEMP 36.5–37; O2SAT 92–98
[2021-07-10 06:22] LABS: Basophils # 0.1 10^3/uL (0.0-0.1); Basophils % 0.5 %; Eosinophils % 0.1 %; Hematocrit 43.5 % (42.0-52.0); Hemoglobin 14.9 g/dL (11.7-16.6); Lymphocytes # 2.3 10^3/uL (0.8-4.8); Lymphocytes % 21.5 %; Mean Corpuscular HGB Conc 34.3 g/dL (30.0-36.0); Mean Corpuscular Hemoglobin 31.4 pg (28.0-34.0); Mean Corpuscular Volume 91.8 fl (80-94); Mean Platelet Volume 10.5 fL (7.4-10.4); Monocytes # 0.9 10^3/uL (0.2-0.9); Monocytes % 8.3 %; Neutrophils # 7.37 10^3/uL (1.8-7.7); Neutrophils % 69.1 %; Nucleated Red Blood Cells % 0 %; Platelet Count 163 10^3/cmm (130-400); Red Blood Count 4.74 10^6/uL (4.1-5.3); Red Cell Distribution Width 11.9 % (12.1-15.1); White Blood Count 10.7 10^3/uL (4.0-10.0)
[2021-07-10 06:39] LABS: Alanine Aminotransferase 13 U/L (0-41); Albumin Level 3.6 g/dL (3.5-5.2); Alkaline Phosphatase 75 IU/L (40-130); Anion Gap 13.6 (5-19); Aspartate Amino Transferase 18 U/L (0-40); Blood Urea Nitrogen 12 mg/dL (8-23); Calcium 8.7 mg/dL (8.5-10.5); Carbon Dioxide 21 mmol/L (22-29); Chloride 100 mmol/L (98-107); Chol HDL Ratio 2.55 mg/dL (1.0-5.00); Cholesterol 140 mg/dL (0-200); Creatinine Clr Calc Pharmacy 78.3172; Globulin 2.9 g/dL (1.3-4.6); Glucose 93 mg/dL (65-115); HDL Cholesterol 55 mg/dL (60-100); LDL Cholesterol Calculated 62 mg/dL (50-129); LDL HDL Ratio 1.13 RATIO (0.00-3.22); Osmolality Calculated 271 mOsm/kg (285-295); Potassium 3.6 mmol/L (3.5-5.1); Sodium 131 mmol/L (136-145); Thyroid Stimulating Hormone 0.62 uIU/mL (0.27-4.20); Total Bilirubin 0.6 mg/dL (0.15-1.2); Total Protein 6.5 g/dL (6.6-8.7); Triglycerides 113 mg/dL (0-150)
[2021-07-10] MEDS: metoprolol succinate ER (24 HR) 25 mg Tablet PO ×2 (07:38→17:41)
[2021-07-10] MEDS: levETIRAcetam 500 mg Tablet 750 MG PO ×2 (07:38→17:41)
--- NOTE | 2021-07-10 10:27 | PC.CHAP ---
Pastoral Care Encounter/Spiritual Assessment Type of Contact [] Declined foreign clerk visit [] Patient/Family/Request visit [] Outpatient visit [] Follow-up visit [] Physician referral [] Code/Alert [x] Routine visit [] Staff referral [] Actively dying [] Patient sleeping [] Family support [] [] Out of room [] Palliative care [] [] Receiving care in room [] Pre-surgical visit [] Trauma [] Long length of stay [] ICU visit [] Other: Relational/Emotional Strength [x] Patient feels connected with others/family/visitors/staff [] Distress [] Loneliness/isolation [] Abandonment Spirituality of Patient [x] Person of Caprice [] Attends Presybeterian of their Caprice [x] Believes in Prayer [] Reads Bible or Buddhist materials [] There are Spiritual issues to be addressed Junior Art Director Interventions [x] Prayer [x] Active listening [x] Non-anxious presence [x] Spiritual/emotional support [] Crisis/trauma care [] Spiritual counseling [] Bereavement support [] Provided bereavement packet [] Provided Bible/devotional materials [] Provided toy/stuffed animal, coloring book to patient or family member [] Provided Communion [] Anointing/Ipava [] Salvation [x] Completed spiritual assessment [] Other: Impact on Illness or Injury [] Angry [] Fearful [] Anxious [] Often cries [] Exhaustion [] Unable to work [] Unable to attend restorationism [] Unable to walk/stand [] Unable to read [] Unable to drive [] Unable to eat/drink [] Unable to sleep [] Unable to be with family [] Patient intubated [] Other: Summary Junior Art Director prayed with Patient Time spent with patient 7 minutes
[2021-07-10] MEDS: clopidogrel 75 mg Tablet PO (11:40)
[2021-07-10] MEDS: pantoprazole DR 40 mg Tablet PO (11:40)
[2021-07-10] MEDS: aspirin 81 mg EC Tablet PO (11:40)
--- NOTE | 2021-07-10 13:35 | P.PN_ITS ---
Subjective Subjective: Doing better. No further seizures here. Confusion appears to be better. Denied BOUDREAUX, CP, SOB Vitals/I&O/Wt Last Vital Signs Temp 98.6 F 07/10/21 12:00 Pulse 66 07/10/21 12:00 Resp 18 07/10/21 12:00 BP 126/76 07/10/21 12:00 Pulse Ox 96 07/10/21 12:00 07/09/21 07/10/21 07/10/21 22:59 06:59 14:59 Intake Total 1100 / 1100 150 / 1250 Output Total 200 / 200 300 / 500 Balance 900 / 900 -150 / 750 Weight last 48 hrs Weight 81.647 kg Weight 81.647 kg Physical Exam Narrative: NAD CVS: S1S2, RRR, Mur (-) Resp: CTA Abd: soft, NT, BS+ Edema (-) CHRISTIAN EDUCATION DIRECTOR: A&Ox3 Data : 07/10/21 05:26 07/10/21 05:26 A&P Assessment and plan (1) Altered mental status: Almost at baseline today. TIA vs CVA. to r/o Status: Acute (2) Generalized epilepsy: no further Sz activity Status: Acute (3) Hypertension: stable Status: Acute (4) Carotid artery stenosis without cerebral infarction: Status: Acute (5) Seizure disorder: Status: Acute (6) Stroke: h/o Status: Acute (7) Peripheral vascular disease: Status: Acute (8) Dyslipidemia: Status: Acute Plan MRI pending If no CVA n MRI mat d/chome Sz precaution DVT prophylaxis on Lovenox Attestations Medical Necessity Statement*: Pt w/ Aletered mental status and Seizure will need to r/o Ac CVA and will need continued hospitalization Time Spent in Patient Care: 40 min Coding Level of Care Code Acute 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
[2021-07-10] MEDS: enoxaparin 40 mg/0.4 mL Syringe SUBCUT (16:17)
[2021-07-11] VITALS (7 sets, daily range): BP systolic 121–163; BP diastolic 72–84; PULSE 65–82; RESP 15–22; TEMP 36.6–36.8; O2SAT 94–96
[2021-07-11] MEDS: metoprolol succinate ER (24 HR) 25 mg Tablet PO ×2 (08:07→17:15)
[2021-07-11] MEDS: levETIRAcetam 500 mg Tablet 750 MG PO ×2 (08:07→17:15)
[2021-07-11] MEDS: atorvastatin 40 mg Tablet PO (08:07)
[2021-07-11] MEDS: pantoprazole DR 40 mg Tablet PO (12:36)
[2021-07-11] MEDS: clopidogrel 75 mg Tablet PO (12:36)
[2021-07-11] MEDS: aspirin 81 mg EC Tablet PO (12:36)
--- NOTE | 2021-07-11 12:47 | PM.DCS ---
Discharge Providers Date of Admission: 07/09/21 11:36 Date of Discharge: July 11, 2021 Attending Provider at Admission: Alejandra Pandya MD Attending Provider at Discharge: Tracy Sepulveda MD Primary Care Provider: TARIK Irving Diagnoses at Discharge Discharge Diagnosis (1) Altered mental status: Status: Acute (2) Generalized epilepsy: Status: Acute (3) Hypertension: Status: Acute (4) Carotid artery stenosis without cerebral infarction: Status: Acute (5) Seizure disorder: Status: Acute (6) Stroke: Status: Acute (7) Peripheral vascular disease: Status: Acute Permanent problem details: With severe right carotid artery stenosis. (8) Dyslipidemia: Status: Acute Reason for Visit Reason for Visit: AMS Discharge Data Studies Completed and Pending Completed Studies During Hospitalization Category Date Time Status CT head wo con* [id number] Urgent Cat Scan 07/09/21 07:56 Completed XR chest 1V portable [id number] Urgent Exams 07/09/21 07:56 Completed Pending at discharge Category Date Time Status KEPPRA Level [Levetiracetam Keppra] Timed Lab 07/09/21 08:40 Received MR head wo con* [id number] Routine MRI 07/12/21 10:15 Ordered Radiology Impressions Chest X-Ray 07/09/21 07:56 IMPRESSION: 1. No definite CHF or pneumonia. 2. Other findings discussed above. Head CT 07/09/21 07:56 IMPRESSION: 1. No acute intracranial hemorrhage or mass effect. 2. Changes of microvascular disease, and small old lacunar infarcts. 3. No definite acute infarct by CT, see above. 4. Other findings discussed above. Laboratory Results WBC 10.7 10^3/uL (4.0-10.0) H 07/10/21 05:26 RBC 4.74 10^6/uL (4.1-5.3) 07/10/21 05:26 Hgb 14.9 g/dL (11.7-16.6) 07/10/21 05:26 Hct 43.5 % (42.0-52.0) 07/10/21 05:26 MCV 91.8 fl (80-94) 07/10/21 05:26 MCH 31.4 pg (28.0-34.0) 07/10/21 05:26 MCHC 34.3 g/dL (30.0-36.0) 07/10/21 05: RDW 11.9 % (12.1-15.1) L 07/10/21 05:26 Plt Count 163 10^3/cmm (130-400) 07/10/21 05:26 MPV 10.5 fL (7.4-10.4) H 07/10/21 05:26 Neut % (Auto) 69.1 % 07/10/21 05:26 Lymph % (Auto) 21.5 % 07/10/21 05:26 [place] % (Auto) 8.3 % 07/10/21 05:26 Eos % (Auto) 0.1 % 07/10/21 05:26 Baso % (Auto) 0.5 % 07/10/21 05:26 Neut # (Auto) 7.37 10^3/uL (1.8-7.7) 07/10/21 05:26 Lymph # (Auto) 2.3 10^3/uL (0.8-4.8) 07/10/21 05:26 [place] # (Auto) 0.9 10^3/uL (0.2-0.9) 07/10/21 05:26 Eos # (Auto) 0.0 10^3/uL (0.0-0.8) 07/10/21 05:26 Baso # (Auto) 0.1 10^3/uL (0.0-0.1) 07/10/21 05:26 Nucleated RBC % (auto) 0 % 07/10/21 05: Nucleated RBCs # 0.0 /100WBC 07/10/21 05:26 Specimen Type Arterial 07/09/21 11:45 Sample Site Radial, left 07/09/21 11:45 ABG pH 7.44 (7.35-7.45) 07/09/21 11:45 ABG pCO2 36.4 mmHg (35-45) 07/09/21 11:45 ABG pO2 70.5 mmHg (80.0-100.0) L 07/09/21 11:45 ABG HCO3 24.8 mmol/L (22-26) 07/09/21 11:45 ABG Base Excess 1.0 mmol/L (-2.0-2.0) 07/09/21 11:45 Jack Test Pos 07/09/21 11:45 Hematocrit 45.5 % (42-52) 07/09/21 11:45 O2 Delivery Device Room air 07/09/21 11:45 FiO2 21.0 % 07/09/21 11:45 Yarn Inspector ID Carline 07/09/21 11:45 Sodium 131 mmol/L (136-145) L 07/10/21 05:26 Potassium 3.6 mmol/L (3.5-5.1) 07/10/21 05:26 Chloride 100 mmol/L (98-107) 07/10/21 05:26 Carbon Dioxide 21 mmol/L (22-29) L 07/10/21 05:26 Anion Gap 13.6 (5-19) 07/10/21 05:26 BUN 12 mg/dL (8-23) 07/10/21 05:26 Creatinine 0.7 mg/dL (0.7-1.2) 07/10/21 05:26 GFR Calculation Not Reportable 07/10/21 05:26 Glucose 93 mg/dL (65-115) 07/10/21 05:26 Calculated Osmolality 271 mOsm/kg (285-295) L 07/10/21 05:26 Lactate 1.5 mmol/L (0.5-2.2) 07/09/21 07:45 Calcium 8.7 mg/dL (8.5-10.5) 07/10/21 05:26 Magnesium 2.3 mg/dL (1.7-2.3) 07/09/21 07:45 Total Bilirubin 0.6 mg/dL (0.15-1.2) 07/10/21 05:26 AST 18 U/L (0-40) 07/10/21 05:26 ALT 13 U/L (0-41) 07/10/21 05:26 Alkaline Phosphatase 75 IU/L (40-130) 07/10/21 05:26 Ammonia 32 umol/L (16-60) 07/09/21 11:45 Total Protein 6.5 g/dL (6.6-8.7) L 07/10/21 05:26 Albumin 3.6 g/dL (3.5-5.2) 07/10/21 05:26 Globulin 2.9 g/dL (1.3-4.6) 07/10/21 05:26 Triglycerides 113 mg/dL (0-150) 07/10/21 05: Cholesterol 140 mg/dL (0-200) 07/10/21 05:26 LDL Cholesterol, Calc 62 mg/dL (50-129) 07/10/21 05: HDL Cholesterol 55 mg/dL (60-100) L 07/10/21 05:26 LDL/HDL Ratio 1.13 RATIO (0.00-3.22) 07/10/21 05: Cholesterol/HDL Ratio 2.55 mg/dL (1.0-5.00) 07/10/21 05: TSH 0.62 uIU/mL (0.27-4.20) 07/10/21 05:26 Urine Color Yellow (Yellow) 07/09/21 10:34 Urine Appearance Clear (CLEAR) 07/09/21 10:34 Urine pH 8 (5-7) H 07/09/21 10:34 Ur Specific [place] 1.015 (1.005-1.030) 07/09/21 10:34 Urine Protein Neg (Negative) 07/09/21 10:34 Urine Glucose (UA) Norm (Normal) 07/09/21 10:34 Urine Ketones Negative (Negative) 07/09/21 10:34 Urine Blood Neg (Negative) 07/09/21 10:34 Urine Nitrate Negative (Negative) 07/09/21 10:34 Urine Bilirubin Neg (Negative) 07/09/21 10:34 Prot Sulfosalicylic Acd Negative (Negative) 07/09/21 10:34 Urine Urobilinogen Norm mg/dL (Negative) 07/09/21 10:34 Ur Leukocyte Esterase Negative (Negative) 07/09/21 10:34 Salicylates < 0.3 mg/dL (3-10) L 07/09/21 07:45 Urine Opiates Screen Negative ng/mL (Negative) 07/09/21 10:34 Acetaminophen < 5.0 ug/mL (10-30) L 07/09/21 07:45 Ur Barbiturates Screen Negative ng/mL (Negative) 07/09/21 10:34 Ur Phencyclidine Scrn Negative ng/mL (Negative) 07/09/21 10:34 Ur Amphetamines Screen Negative ng/mL (Negative) 07/09/21 10:34 U Benzodiazepines Scrn Negative ng/mL (Negative) 07/09/21 10:34 Urine Cocaine Screen Negative ng/mL (Negative) 07/09/21 10:34 U Marijuana (THC) Screen Negative ng/mL (Negative) 07/09/21 10:34 Ethyl Alcohol < 10 mg/dL (0-10) 07/09/21 07:45 Vitals Last Vital Signs Temp 98.1 F 07/11/21 08:00 Pulse 82 07/11/21 08:00 Resp 17 07/11/21 08:00 BP 140/81 07/11/21 08:00 Pulse Ox 95 07/11/21 08:00 Discharge Plan Discharge Patient Disposition: Home Condition: Stable Prescriptions: Continued Plavix 75 mg tablet 75 mg PO DAILY@12 Qty: 90 3RF Keppra 750 mg tablet 750 mg PO BID Qty: 60 0RF metoprolol succinate 25 mg tablet extended release 24 hr 25 mg PO BID 0RF loratadine [Claritin] 10 mg Tablet 2.5 mg PO DAILY PRN (Reason: Allergy Symptoms) 0RF rosuvastatin 10 mg tablet 10 mg PO EVERY OTHER DAY 0RF Complete Multivitamin Tablet See Rx Instructions .ROUTE .COMPLEX 0RF Rx Instructions: 1/2 tab po QAM aspirin 81 mg tablet,delayed release (DR/EC) 81 mg PO DAILY@12 0RF pantoprazole 40 mg tablet,delayed release (DR/EC) 40 mg PO DAILY@12 0RF triamcinolone acetonide 0.5 % cream 1 applic TOPICAL PRN 0RF diclofenac sodium [Voltaren Arthritis Pain] 1 % Gel 2 - 4 g TOPICAL BID PRN (Reason: Pain) 0RF prednisone 20 mg Tablet 10 - 20 mg PO DAILY PRN (Reason: Rash) 0RF Referrals: Karlene Esquivel FNP [Primary Care Provider] - 4-7 days Discharge Diet: Cardiac Discharge Activity: Increase activity as tolerated Patient Instructions: Opioid Safety Coding Level of Care Code Acute Chg FW DC note Diagnoses Altered mental status R41.82 Generalized epilepsy G40.309 Hypertension I10 Carotid artery stenosis without cerebral infarction I65.29 Seizure disorder G40.909 Stroke I63.9 Peripheral vascular disease I73.9 Dyslipidemia E78.5
[2021-07-11] MEDS: enoxaparin 40 mg/0.4 mL Syringe SUBCUT (15:18)
--- NOTE | 2021-07-11 16:23 | P.PN_ITS ---
Subjective Subjective: No overnight events, patient she is eager to return home Vitals/I&O/Wt Last Vital Signs Temp 98.3 F 07/11/21 15:23 Pulse 69 07/11/21 15:23 Resp 15 07/11/21 15:23 BP 135/84 07/11/21 15:23 Pulse Ox 95 07/11/21 15:23 07/11/21 07/11/21 07/11/21 06:59 14:59 22:59 Intake Total 100 / 820 600 / 600 Balance 100 / 520 600 / 600 Weight last 48 hrs Weight 81.647 kg Weight 83.461 kg Weight 81.647 kg Physical Exam Narrative: Nonfocal neuro exam euvolemic Very pleasant and cooperative patient is saturating well on room air Nonlabored breathing S1, S2 Nonfocal neuro exam Soft abdomen Data : 07/10/21 05:26 07/10/21 05:26 A&P Assessment and plan (1) Altered mental status: Status: Acute (2) Generalized epilepsy: Status: Acute (3) Hypertension: Status: Acute Plan Patient is back to his baseline Metabolic encephalopathy: Improved Leukocytosis trending down MRI head pending to rule out stroke No active withdrawal seizures Patient will need outpatient Dr. 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
[2021-07-12] VITALS (7 sets, daily range): BP systolic 107–137; BP diastolic 55–76; PULSE 59–74; RESP 17–18; TEMP 36.4–36.7; O2SAT 92–96
[2021-07-12 06:26] LABS: Glucose Point of Care 97 mg/dL (70-110)
[2021-07-12] MEDS: levETIRAcetam 500 mg Tablet 750 MG PO (08:18)
[2021-07-12] MEDS: metoprolol succinate ER (24 HR) 25 mg Tablet PO (08:18)
--- NOTE | 2021-07-12 10:15 | MR_ITS ---
WS: [id number] MRI BRAIN WITHOUT CONTRAST HISTORY: Altered mental status, r/o CVA. H/O seizure COMPARISON: 06/04/2020 TECHNIQUE: Diffusion imaging, multiplanar T1, T2 and FLAIR imaging obtained. No evidence for an acute infarct. No acute hemorrhage. Again noted is a focal area of hemosiderin in the RIGHT frontal cortex measuring about 5 mm. There is extensive confluent and patchy diffuse white matter signal abnormalities probably related to aging and chronic microvascular ischemic changes. Min imal progression since the prior study. Prior tiny lacunar infarct in the LEFT caudate. Mild atrophy in the cerebellum and cerebrum is similar to the prior study. Ventricles and extra-axial spaces are mildly prominent on the basis of central and peripheral atrophy . No inferior displacement of cerebellar tonsils. The sella turcica. Dural venous sinuses and [place] demonstrate no abnormality on this unenhanced studies. Agai n noted is the very mild stenosis involving the intracranial RIGHT vertebral artery. Paranasal sinuses: Clear. Mastoid air cells: Small amount of fluid in the mastoid air cells bilaterally. Calvarium and scalp: Intact. MR/MR head wo con* [id number] IMPRESSION: 1. No acute infarct or diffusion abnormalities. 2. Advanced small vessel ischemic changes with atrophy. Minimal progression si nce the prior study. 3. Stable RIGHT frontal lobe hemosiderin deposit. 4. Remote lacunar infarct LEFT caudate.
--- NOTE | 2021-07-12 10:41 | PC.SOCIAL ---
IMM Update Pg. 2 of IMM updated and reviewed with patient, who verbalized understanding. Copy provided.
[2021-07-12 10:43] LABS: Glucose Point of Care 105 mg/dL (70-110)
[2021-07-12] MEDS: clopidogrel 75 mg Tablet PO (11:33)
[2021-07-12] MEDS: aspirin 81 mg EC Tablet PO (11:33)
[2021-07-12] MEDS: pantoprazole DR 40 mg Tablet PO (11:33)
--- NOTE | 2021-07-12 12:21 | PM.DCS ---
Discharge Providers Date of Admission: 07/09/21 11:36 Date of Discharge: July 12, 2021 Attending Provider at Admission: Alejandra Pandya MD Attending Provider at Discharge: Tracy Sepulveda MD Primary Care Provider: TARIK Irving Diagnoses at Discharge Discharge Diagnosis (1) Altered mental status: Status: Acute (2) Generalized epilepsy: Status: Acute (3) Hypertension: Status: Acute Reason for Visit Reason for Visit: [facility] Hospital Course Hospital Course Admit note by Dr Pandya locum provider Verónica Armas is a 81 year old male w/ h/o HTN, CVA, Seizure Dis, ICS came to the ED after having 2 episodes of generalized? seizures witnessed by his the 1st one at 2am today. was post ictal after this. Did not to come to the ED then but after the 2 nd episode which was unwitnessed and pt was confused, he came to the ED via EMS. In the ED he still confused about things he normally would be able to answer. He denied CP, SOB, cough, B[place], weakness, dizziness, F/C, trauma, dysuria. He is being admitted for Altered Mental Status Hosp course:- Pt Was admitted for management of altered mental status. MRI head unremarkable. Old CVA related and age-related changes noted. As per the he has been evaluated by neurologist Dr. Augustin an EEG was unremarkable. At home he takes Keppra. is stating that before his arrival in the ER patient experienced a spell of confusion when he returned from the bathroom. When he came back from the bathroom around midnight he kept staring at his and was not making any sense. She did not notice any focal deficits however got concerned about stroke related acute change in mental status. She called EMS after noticing that behavior. She did not see any tonic-clonic seizure, tongue biting or urinary incontinence. Patient did not lose consciousness. No recent fever, or diarrhea. Patient returned to his baseline, no seizure-like activity noticed during his hospitalization. He remained afebrile no signs of meningoencephalitis. He has significant carotid artery disease, referral has been given to see Dr. Pope. Considering significant carotid disease this could very well be underlying TIA. Added aspirin Plavix dual antiplatelet therapy for 3 weeks and then he would continue Plavix. Physical Exam Narrative: Nonfocal neuro exam Patient is awake and alert Saturating well on room air Able to ambulate on his own S1, S2 Soft abdomen Saturating well on room air EOMI, PERRLA Pleasant and cooperative during my exam Discharge Data Studies Completed and Pending Completed Studies During Hospitalization Category Date Time Status CT head wo con* [id number] Urgent Cat Scan 07/09/21 07:56 Completed XR chest 1V portable [id number] Urgent Exams 07/09/21 07:56 Completed MR head wo con* [id number] Routine MRI 07/12/21 10:15 Completed Pending at discharge Category Date Time Status KEPPRA Level [Levetiracetam Keppra] Timed Lab 07/09/21 08:40 Received Radiology Impressions Chest X-Ray 07/09/21 07:56 IMPRESSION: 1. No definite CHF or pneumonia. 2. Other findings discussed above. Head CT 07/09/21 07:56 IMPRESSION: 1. No acute intracranial hemorrhage or mass effect. 2. Changes of microvascular disease, and small old lacunar infarcts. 3. No definite acute infarct by CT, see above. 4. Other findings discussed above. Head MRI 07/12/21 10:15 IMPRESSION: 1. No acute infarct or diffusion abnormalities. 2. Advanced small vessel ischemic changes with atrophy. Minimal progression since the prior study. 3. Stable RIGHT frontal lobe hemosiderin deposit. 4. Remote lacunar infarct LEFT caudate. Laboratory Results WBC 10.7 10^3/uL (4.0-10.0) H 07/10/21 05:26 RBC 4.74 10^6/uL (4.1-5.3) 07/10/21 05:26 Hgb 14.9 g/dL (11.7-16.6) 07/10/21 05:26 Hct 43.5 % (42.0-52.0) 07/10/21 05:26 MCV 91.8 fl (80-94) 07/10/21 05:26 MCH 31.4 pg (28.0-34.0) 07/10/21 05:26 MCHC 34.3 g/dL (30.0-36.0) 07/10/21 05:26 RDW 11.9 % (12.1-15.1) L 07/10/21 05:26 Plt Count 163 10^3/cmm (130-400) 07/10/21 05:26 MPV 10.5 fL (7.4-10.4) H 07/10/21 05:26 Neut % (Auto) 69.1 % 07/10/21 05: Lymph % (Auto) 21.5 % 07/10/21 05:26 Winston % (Auto) 8.3 % 07/10/21 05:26 Eos % (Auto) 0.1 % 07/10/21 05:26 Baso % (Auto) 0.5 % 07/10/21 05:26 Neut # (Auto) 7.37 10^3/uL (1.8-7.7) 07/10/21 05: Lymph # (Auto) 2.3 10^3/uL (0.8-4.8) 07/10/21 05:26 Winston # (Auto) 0.9 10^3/uL (0.2-0.9) 07/10/21 05:26 Eos # (Auto) 0.0 10^3/uL (0.0-0.8) 07/10/21 05: Baso # (Auto) 0.1 10^3/uL (0.0-0.1) 07/10/21 05:26 Nucleated RBC % (auto) 0 % 07/10/21 05: Nucleated RBCs # 0.0 /100WBC 07/10/21 05:26 Specimen Type Arterial 07/09/21 11:45 Sample Site Radial, left 07/09/21 11:45 ABG pH 7.44 (7.35-7.45) 07/09/21 11:45 ABG pCO2 36.4 mmHg (35-45) 07/09/21 11:45 ABG pO2 70.5 mmHg (80.0-100.0) L 07/09/21 11:45 ABG HCO3 24.8 mmol/L (22-26) 07/09/21 11:45 ABG Base Excess 1.0 mmol/L (-2.0-2.0) 07/09/21 11:45 Jack Test Pos 07/09/21 11:45 Hematocrit 45.5 % (42-52) 07/09/21 11:45 O2 Delivery Device Room air 07/09/21 11:45 FiO2 21.0 % 07/09/21 11:45 Quality Measurement Specialist ID Monro 07/09/21 11:45 Sodium 131 mmol/L (136-145) L 07/10/21 05:26 Potassium 3.6 mmol/L (3.5-5.1) 07/10/21 05:26 Chloride 100 mmol/L (98-107) 07/10/21 05:26 Carbon Dioxide 21 mmol/L (22-29) L 07/10/21 05:26 Anion Gap 13.6 (5-19) 07/10/21 05:26 BUN 12 mg/dL (8-23) 07/10/21 05:26 Creatinine 0.7 mg/dL (0.7-1.2) 07/10/21 05:26 GFR Calculation Not Reportable 07/10/21 05:26 Glucose 93 mg/dL (65-115) 07/10/21 05:26 POC Glucose 105 mg/dL (70-110) 07/12/21 10:33 Calculated Osmolality 271 mOsm/kg (285-295) L 07/10/21 05:26 Lactate 1.5 mmol/L (0.5-2.2) 07/09/21 07:45 Calcium 8.7 mg/dL (8.5-10.5) 07/10/21 05:26 Magnesium 2.3 mg/dL (1.7-2.3) 07/09/21 07:45 Total Bilirubin 0.6 mg/dL (0.15-1.2) 07/10/21 05:26 AST 18 U/L (0-40) 07/10/21 05:26 ALT 13 U/L (0-41) 07/10/21 05:26 Alkaline Phosphatase 75 IU/L (40-130) 07/10/21 05:26 Ammonia 32 umol/L (16-60) 07/09/21 11:45 Total Protein 6.5 g/dL (6.6-8.7) L 07/10/21 05:26 Albumin 3.6 g/dL (3.5-5.2) 07/10/21 05:26 Globulin 2.9 g/dL (1.3-4.6) 07/10/21 05:26 Triglycerides 113 mg/dL (0-150) 07/10/21 05:26 Cholesterol 140 mg/dL (0-200) 07/10/21 05:26 LDL Cholesterol, Calc 62 mg/dL (50-129) 07/10/21 05:26 HDL Cholesterol 55 mg/dL (60-100) L 07/10/21 05:26 LDL/HDL Ratio 1.13 RATIO (0.00-3.22) 07/10/21 05:26 Cholesterol/HDL Ratio 2.55 mg/dL (1.0-5.00) 07/10/21 05:26 TSH 0.62 uIU/mL (0.27-4.20) 07/10/21 05:26 Urine Color Yellow (Yellow) 07/09/21 10:34 Urine Appearance Clear (CLEAR) 07/09/21 10:34 Urine pH 8 (5-7) H 07/09/21 10:34 Ur Specific [place] 1.015 (1.005-1.030) 07/09/21 10:34 Urine Protein Neg (Negative) 07/09/21 10:34 Urine Glucose (UA) Norm (Normal) 07/09/21 10:34 Urine Ketones Negative (Negative) 07/09/21 10:34 Urine Blood Neg (Negative) 07/09/21 10:34 Urine Nitrate Negative (Negative) 07/09/21 10:34 Urine Bilirubin Neg (Negative) 07/09/21 10:34 Prot Sulfosalicylic Acd Negative (Negative) 07/09/21 10:34 Urine Urobilinogen Norm mg/dL (Negative) 07/09/21 10:34 Ur Leukocyte Esterase Negative (Negative) 07/09/21 10:34 Salicylates < 0.3 mg/dL (3-10) L 07/09/21 07:45 Urine Opiates Screen Negative ng/mL (Negative) 07/09/21 10:34 Acetaminophen < 5.0 ug/mL (10-30) L 07/09/21 07:45 Ur Barbiturates Screen Negative ng/mL (Negative) 07/09/21 10:34 Ur Phencyclidine Scrn Negative ng/mL (Negative) 07/09/21 10:34 Ur Amphetamines Screen Negative ng/mL (Negative) 07/09/21 10:34 U Benzodiazepines Scrn Negative ng/mL (Negative) 07/09/21 10:34 Urine Cocaine Screen Negative ng/mL (Negative) 07/09/21 10:34 U Marijuana (THC) Screen Negative ng/mL (Negative) 07/09/21 10:34 Ethyl Alcohol < 10 mg/dL (0-10) 07/09/21 07:45 Vitals Last Vital Signs Temp 97.6 F 07/12/21 11:31 Pulse 67 07/12/21 11:31 Resp 18 07/12/21 11:31 BP 130/74 07/12/21 11:31 Pulse Ox 96 07/12/21 11:31 Discharge Plan Discharge Patient Disposition: Home Condition: Stable Prescriptions: Continued Keppra 750 mg tablet 750 mg PO BID Qty: 60 0RF metoprolol succinate 25 mg tablet extended release 24 hr 25 mg PO BID 0RF loratadine [Claritin] 10 mg Tablet 2.5 mg PO DAILY PRN (Reason: Allergy Symptoms) 0RF rosuvastatin 10 mg tablet 10 mg PO EVERY OTHER DAY 0RF multivitamin,ed-trxp-yobktthx Tablet See Rx Instructions .ROUTE .COMPLEX 0RF Rx Instructions: 1/2 tab po QAM aspirin 81 mg tablet,delayed release (DR/EC) 81 mg PO DAILY@12 0RF pantoprazole 40 mg tablet,delayed release (DR/EC) 40 mg PO DAILY@12 0RF triamcinolone acetonide 0.5 % cream 1 applic TOPICAL PRN 0RF diclofenac sodium [Voltaren Arthritis Pain] 1 % Gel 2 - 4 g TOPICAL BID PRN (Reason: Pain) 0RF prednisone 20 mg Tablet 10 - 20 mg PO DAILY PRN (Reason: Rash) 0RF Changed Plavix 75 mg tablet 75 mg PO DAILY Qty: 20 0RF Discharge Orders: Discharge Order (Routine); Ordered 07/12/21 Ordered By: Tracy Sepulveda Referrals: Quinn Pope MD [Physician] - 07/21/21 2:00 pm (carotid art disaease ) Karlene Esquivel FNP [Primary Care Provider] - 07/15/21 8:40 am Discharge Diet: Cardiac Discharge Activity: Increase activity as tolerated Discharge Attestations Time Spent in Discharge Care*: less than 30 min Quality Metrics Clinical Quality Measures [ No reported AMI, CVA or VTE this stay] Coding Level of Care Code Acute Chg FW DC note Diagnoses Altered mental status R41.82 Generalized epilepsy G40.309 Hypertension I10
[2021-07-13 10:14] LABS: Levetiracetam Keppra 13.3 mcg/mL
== END 2021-07-12 13:50 | disposition home or self-care (01) | DRG 69 ==
LOC: ER 11:36 → MEDSURG 20:12
PROVIDERS: Admitting Provider Internal Medicine; Emergency Provider Emergency Medicine; PCP Registered Nurse; Visit Provider Internal Medicine
DX: G45.9 Transient cerebral ischemic attack, unspecified (principal); G93.41 Metabolic encephalopathy; G40.409 Other generalized epilepsy and epileptic syndromes, not intractable, without status epilepticus; Z95.3 Presence of xenogenic heart valve; Z87.891 Personal history of nicotine dependence; I10 Essential (primary) hypertension; Z86.73 Personal history of transient ischemic attack (TIA), and cerebral infarction without residual deficits; I73.9 Peripheral vascular disease, unspecified; E78.5 Hyperlipidemia, unspecified; Z79.82 Long term (current) use of aspirin
CPT/HCPCS: 36415; 36416; 36600; 70450; 70551; 71045; 80048; 80053; 80061; 80177; 80306; 80307; 81003; 82140; 82803; 82962; 83605; 83735; 84443; 85025; 96360; 96372; 99285; J1650; J7030

== ENCOUNTER → 2021-07-21 13:41 | Outpatient (BNVA) | payer MEDICARE, OTHER, SELFPAY | PROVIDERS: PCP Registered Nurse; Visit Provider Thoracic Surgery (Cardiothoracic Vascular Surgery) | DX: I65.29 Occlusion and stenosis of unspecified carotid artery (principal); Z87.891 Personal history of nicotine dependence; Z79.82 Long term (current) use of aspirin; Z79.01 Long term (current) use of anticoagulants; Z95.4 Presence of other heart-valve replacement | CPT/HCPCS: 99213 ==

== ENCOUNTER 2022-01-24 09:50 | Outpatient (CLI) | payer MEDICARE, OTHER, SELFPAY ==
--- NOTE | 2022-01-24 10:00 | USCV_ITS ---
Verónica Armas Age: 81 Gender: M : 1940 Exam Date: 01/24/2022 10:01 Ordering Phys: Quinn Pope MD (Andy) ([email or web address] [place] Technologist: ISABEL Exam Location: [facility] – [place] Indication: RECHECK CCA STENOSIS Risk Factors: Unknown Previous Vascular Surgery: None Right Brachial BP: / Left Brachial BP: / Right Left Velocity (cm/s) Spectral Plaque Velocity (cm/s) Spectral Plaque Syst/Diast Broadening Syst/Diast Broadening 74.10/ 15.60 Prox CCA 76.60 / 13.80 43.90/ 11.60 Mid CCA 44.50 / 13.20 45.20/ 11.00 Hetro Distal CCA 49.30 / 10.40 Hetro 37.70/ 15.70 Homo Prox ICA 33.30 / 9.80 Hetro 251.80/80.30 Homo Mid ICA 46.50 / 14.60 233.50/52.90 Hetro Distal ICA 56.40 / 22.50 63.30 Hetro ECA 50.10 Hetro 5.74 ICA/CCA 1.27 Bi- Vertebral Antegrade directiona l 19.20/ 6.40 cm/s 19.70/ 4.20 cm/s Bi Subclavian Bi 143.8 73.40 0 FINDINGS Minimal plaques of the right bifurcation. Moderate to heavy plaque at the mid and distally ICA on the right side Mild to moderate plaque at the left bifurcation and internal carotid artery Bidirectional flow in the right vertebral artery Normal Doppler flow velocities in the subclavian arteries bilaterally CONCLUSIONS 1. Moderate to heavy plaque in the mid and distal right internal carotid artery with elevated velocities, suggestive of hemodynamically significant stenosis. 2. Abnormal flow pattern in the right vertebral artery, may suggest proximal right subclavian stenosis. 3. Mild to moderate plaques at the left bifurcation and internal carotid artery, suggesting less than 50% stenosis. Consider CTA to better evaluate the distal internal carotid artery and vertebral arteries on the right side Compared to the study from 01/17/2021, there may not be significant change in the internal carotid artery on the right side nodes Dr Nika Bennett MD [facility] (Electronically Signed) Final Date: 25 January 2022 20:38 S
== END 2022-01-24 09:51 | disposition home or self-care (01) ==
PROVIDERS: PCP Registered Nurse; Visit Provider Thoracic Surgery (Cardiothoracic Vascular Surgery)
DX: I65.23 Occlusion and stenosis of bilateral carotid arteries (principal)
CPT/HCPCS: 93880

== ENCOUNTER 2022-02-25 14:19 | Emergency (ER) | payer MEDICARE, OTHER, SELFPAY ==
[2022-02-25 14:21] VITALS: BP 186/92; PULSE 84; RESP 16; TEMP 36.8; O2SAT 97; BMI 25.8
--- NOTE | 2022-02-25 14:27 | XRR_ITS ---
PROCEDURE INFORMATION: Exam: XR Chest Exam date and time: 02/25/2022 2:33 PM Age: 82 years old Clinical indication: Other: AMS TECHNIQUE: Imaging protocol: Radiologic exam of the chest. Views: 1 view. COMPARISON: CR (CHEST, ) 07/09/2021 7:08 AM FINDINGS: Tubes, catheters and devices: Sternotomy wires/CABG and atrial clip device. Lungs: Cardiac silhouette size, and vascularity are somewhat accentuated, likely related to poor inspiration/expansion however clinical correlation for mild CHF should be obtained. Upper lungs are clear. Lung bases are suboptimally assessed however there is an ill-defined patchy opacity/interstitial prominence in the lateral left lung base. This may represent developing pneumonia.. Pleural spaces: No pleural effusion. No pneumothorax. Heart/Mediastinum: As above. Vasculature: Calcified and tortuous thoracic aorta similar to prior exam. Bones/joints: No acute osseous findings. Other findings: Single view was submitted. XR/XR chest 1V portable [id number] IMPRESSION: 1. Accentuated cardiac silhouette size and vascularity. See discussion above. 2. No obvious acute consolidation however there is ill-defined patchy opacity in the lateral left lung base as described. Suboptimal lung base assessment. Followup including lateral view may be obtained if clinically indicated.
--- NOTE | 2022-02-25 14:27 | CTR_ITS ---
PROCEDURE INFORMATION: Exam: CT Head Without Contrast Exam date and time: 02/25/2022 2:36 PM Age: 82 years old Clinical indication: Altered mental status/memory loss; Additional info: AMS TECHNIQUE: Imaging protocol: Computed tomography of the head without contrast. Radiation optimization: All CT scans at this facility use at least one of these dose optimization techniques: automated exposure control; mA and/or kV adjustment per patient size (includes targeted exams where dose is matched to clinical indication); or iterative reconstruction. COMPARISON: MR head wo con* [id number] 07/12/2021 9:30 AM RADIATION DOSE METRICS: Total DLP (mGy-cm): 1122.58 FINDINGS: Brain: Mild diffuse hypodense changes are noted in the bilateral periventricular regions, likely related to chronic ischemic small vessel disease. There is mild brain parenchymal atrophy. No acute intracranial hemorrhage, mass effect or midline shift. Cerebral ventricles: No pathologic ventricular dilatation. Paranasal sinuses: Visualized sinuses are unremarkable. No fluid levels. Mastoid air cells: Visualized mastoid air cells are well aerated. Bones/joints: Unremarkable. No acute fracture. Soft tissues: Unremarkable. CT/CT head wo con* [id number] IMPRESSION: No acute intracranial findings.
--- NOTE | 2022-02-25 14:46 | ED_ITS ---
HPI - General Adult General: Chief complaint: General Medical Stated complaint: HTN Time Seen by Provider: 02/25/22 14:23 Source: patient Mode of arrival: EMS Limitations: no limitations History of Present Illness: 82-year-old male who is here by EMS. EMS called because he had a period of altered no status they state that he has been acting normally since they have arrived and answering their questions. He states he feels fine he is able to tell me his name where he is from he does get confused on the date my first has been is a 1980 he does know that is not right and it was in the but does not know the exact year. He denies any headache denies any chest pain denies any fevers Associated symptoms: Reports confusion; Deny chest pain, dyspnea, nausea, rash or vomiting Review of Systems Const: Denies: fever(s), chills, body aches or change in appetite Eyes: Denies: blurry vision or eye discomfort ENMT: Denies: throat pain or dental pain Card: Denies: chest pain Resp: Denies: dyspnea GI: Denies: abdominal pain, nausea, vomiting or diarrhea : Denies: dysuria Musc: Denies: neck pain or back pain Skin/Breast: Denies: rash Neuro: Reports: confusion Psych: Denies: depression Yayo/Lymph: Denies: easy bruising All/Imm: Denies: urticaria PFSH ED PFSH: Medical History 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 Seizure disorder Seizure-like activity Stroke Surgical History History of mitral valve replacement with bioprosthetic valve Family History Mother CAD (coronary artery disease) Father , Old age, in his 90s No problems noted. Social History Smoking and tobacco status: former smoker Alcohol intake: never History of recent travel: No Physical Exam Const: COMMON NORMALS: no acute distress, healthy appearing and alert; negative for patient oriented x3 ORIENTATION/CONSCIOUSNESS: Yes oriented to person and Yes oriented to place; not oriented to time HENMT: COMMON NORMALS: normocephalic and atraumatic HEAD & SCALP: normocephalic and atraumatic Eye: COMMON NORMALS: Equal, round and reactive pupils present and EOMs intact bilaterally PUPIL: Yes Equal, round and reactive pupils present Neck/C-Spine: COMMON NORMALS: full ROM and supple Chest: COMMONS NORMALS: normal inspection of the chest and normal palpation of entire chest wall Resp: COMMON NORMALS: normal respiratory effort, No retractions, No use of accessory muscles and clear to auscultation bilaterally AUSCULTATION: clear to auscultation bilaterally Cardio: COMMON NORMALS: regular rate, regular rhythm and No murmurs present (Cardio) RATE: regular rate RHYTHM: regular rhythm GI: COMMON NORMALS: Normal to inspection, nondistended, normoactive bowel sounds present, Soft to palpation, non-tender and no masses PALPATION: Yes Soft to palpation Extremity: COMMON NORMALS: normal to inspection and full ROM Neuro: COMMON NORMALS: moves all extremities and no focal motor deficits; negative for patient oriented x3 SENSORIUM/ORIENTATION: Yes alert, Yes oriented to person, Yes oriented to place and No oriented to time CRANIAL NERVES: Yes CN normal except as noted SPEECH: speech normal GAIT: Yes Normal gait present MOTOR EXAM: 5/5 motor strength present throughout Psych: COMMON NORMALS: mental status grossly normal, Normal thought process present and cooperative THOUGHT PROCESS: Normal thought process present Skin: COMMON NORMALS: no rashes or lesions noted and no wounds GENERAL SKIN EXAM: no rashes or lesions noted Course Vital Signs: Vital signs: Vital Signs Temperature 98.2 F 02/25/22 14:21 Pulse Rate 79 02/25/22 16:00 Respiratory Rate 12 02/25/22 16:00 Blood Pressure 177/120 02/25/22 16:00 Pulse Oximetry 97 02/25/22 16:00 Oxygen Delivery Me thod 02/25/22 14:21 [facility] - General Adult Medical Decision Making Patient presents here with altered mental status did speak to his he does have a history of dementia he is at his baseline she states that he had a episode where she had a hard time waking him up was why she was concerned he is well-appearing here answering all my questions appropriately head CT is normal blood work is normal he is stable for discharge follow-up with PCP and return if worsening. Lab Data : 02/25/22 15:03 02/25/22 15:03 Radiology Impressions Chest X-Ray 02/25/22 14: IMPRESSION: 1. Accentuated cardiac silhouette size and vascularity. See discussion above. 2. No obvious acute consolidation however there is ill-defined patchy opacity in the lateral left lung base as described. Suboptimal lung base assessment. Followup including lateral view may be obtained if clinically indicated. Head CT 02/25/22 14: IMPRESSION: No acute intracranial findings. Laboratory Results WBC 10.5 10^3/uL (4.0-10.0) H 02/25/22 15:03 RBC 4.53 10^6/uL (4.1-5.3) 02/25/22 15:03 Hgb 14.1 g/dL (11.7-16.6) 02/25/22 15:03 Hct 41.6 % (42.0-52.0) L 02/25/22 15:03 MCV 91.8 fl (80-94) 02/25/22 15:03 MCH 31.1 pg (28.0-34.0) 02/25/22 15:03 MCHC 33.9 g/dL (30.0-36.0) 02/25/22 15:03 RDW 11.9 % (12.1-15.1) L 02/25/22 15:03 Plt Count 166 10^3/cmm (130-400) 02/25/22 15:03 MPV 10.5 fL (7.4-10.4) H 02/25/22 15:03 Neut % (Auto) 77.5 % 02/25/22 15:03 Lymph % (Auto) 16.4 % 02/25/22 15:03 [place] % (Auto) 5.2 % 02/25/22 15:03 Eos % (Auto) 0.0 % 02/25/22 15:03 Baso % (Auto) 0.5 % 02/25/22 15:03 Neut # (Auto) 8.14 10^3/uL (1.8-7.7) H 02/25/22 15:03 Lymph # (Auto) 1.7 10^3/uL (0.8-4.8) 02/25/22 15:03 [place] # (Auto) 0.6 10^3/uL (0.2-0.9) 02/25/22 15:03 Eos # (Auto) 0.0 10^3/uL (0.0-0.8) 02/25/22 15:03 Baso # (Auto) 0.1 10^3/uL (0.0-0.1) 02/25/22 15:03 Nucleated RBC % (auto) 0 % 02/25/22 15:03 Nucleated RBCs # 0.0 /100WBC 02/25/22 15:03 Sodium 140 mmol/L (136-145) 02/25/22 15:03 Potassium 3.5 mmol/L (3.5-5.1) 02/25/22 15:03 Chloride 104 mmol/L (98-107) 02/25/22 15:03 Carbon Dioxide 24 mmol/L (22-29) 02/25/22 15:03 Anion Gap 15.5 (5-19) 02/25/22 15:03 BUN 14 mg/dL (8-23) 02/25/22 15:03 Creatinine 0.9 mg/dL (0.7-1.2) 02/25/22 15:03 GFR Calculation Not Reportable 02/25/22 15:03 Glucose 128 mg/dL (65-115) H 02/25/22 15:03 Calculated Osmolality 292 mOsm/kg (285-295) 02/25/22 15:03 Calcium 8.6 mg/dL (8.5-10.5) 02/25/22 15:03 Total Bilirubin 0.4 mg/dL (0.15-1.2) 02/25/22 15:03 AST 15 U/L (0-40) 02/25/22 15:03 ALT 11 U/L (0-41) 02/25/22 15:03 Alkaline Phosphatase 76 U/L (40-130) 02/25/22 15:03 Total Protein 6.7 g/dL (6.6-8.7) 02/25/22 15:03 Albumin 3.8 g/dL (3.5-5.2) 02/25/22 15:03 Globulin 2.9 g/dL (1.3-4.6) 02/25/22 15:03 Urine Color Yellow (Yellow) 02/25/22 15:42 Urine Appearance Clear (CLEAR) 02/25/22 15:42 Urine pH 5 (5-7) 02/25/22 15:42 Ur Specific [place] 1.020 (1.005-1.030) 02/25/22 15:42 Urine Protein Trace (Negative) 02/25/22 15:42 Urine Glucose (UA) Norm (Normal) 02/25/22 15:42 Urine Ketones 1+ (Negative) H 02/25/22 15:42 Urine Blood 3+ (Negative) H 02/25/22 15:42 Urine Nitrate Negative (Negative) 02/25/22 15:42 Urine Bilirubin Neg (Negative) 02/25/22 15:42 Urine Urobilinogen 1 mg/dL (Negative) H 02/25/22 15:42 Ur Leukocyte Esterase Negative (Negative) 02/25/22 15:42 Urine RBC 5-10 /hpf (0-2) H 02/25/22 15:42 Urine WBC 0-4 /hpf (0-5) H 02/25/22 15:42 Ur Squamous Epith Cells None /hpf (0-5) 02/25/22 15:42 Amorphous Sediment Not Reportable 02/25/22 15:42 Urine Bacteria Trace /hpf (NONE) 02/25/22 15:42 Urine Mucus 1+ /hpf 02/25/22 15:42 EKG Data EKG 1: I personally reviewed and interpreted this EKG as follows: EKG interpretation date: 02/25/22 EKG interpretation time: 15:03 Computer generated interpretation: Chest X-Ray 02/25/22 14:27 IMPRESSION: 1. Accentuated cardiac silhouette size and vascularity. See discussion above. 2. No obvious acute consolidation however there is ill-defined patchy opacity in the lateral left lung base as described. Suboptimal lung base assessment. Followup including lateral view may be obtained if clinically indicated. Head CT 02/25/22 14:27 IMPRESSION: No acute intracranial findings. nsr hr [address] or t wave abnormalities qrs 124 qtc 442 Discharge Plan Discharge Patient Disposition: Home Clinical Impression: Confusion Condition: Stable Prescriptions: No Action levetiracetam 1,000 mg tablet 1,000 mg PO BID Qty: 180 3RF metoprolol succinate 25 mg tablet extended release 24 hr 25 mg PO BID loratadine [Claritin] 10 mg Tablet 2.5 mg PO DAILY PRN (Reason: Allergy Symptoms) rosuvastatin 10 mg tablet 10 mg PO EVERY OTHER DAY multivitamin,[id number] Tablet See Rx Instructions .ROUTE .COMPLEX Rx Instructions: 1/2 tab po QAM aspirin 81 mg tablet,delayed release (DR/EC) 81 mg PO DAILY@12 pantoprazole 40 mg tablet,delayed release (DR/EC) 40 mg PO DAILY@12 diclofenac sodium [Voltaren Arthritis Pain] 1 % Gel 2 - 4 g TOPICAL BID PRN (Reason: Pain) prednisone 20 mg Tablet 10 - 20 mg PO DAILY PRN (Reason: Rash) Plavix 75 mg tablet 75 mg PO DAILY Qty: 20 0RF Discharge Orders: Discharge ED (Routine); Ordered 02/25/22 Ordered By: Mk Houser Referrals: Karlene Esquivel FNP [Primary Care Provider] - 1-3 days Discharge Diet: Advance as tolerated Discharge Activity: Resume usual activity Patient Instructions: Altered Mental Status (ED) Coding Level of Care Code ED Granite Installer for Jorge Luis Fwjuan j Exam Comprehensive
--- NOTE | 2022-02-25 15:00 | PC.NURSE ---
PT PLACED ON CONTINUOUS NIBP, SPO2, AND CM
--- NOTE | 2022-02-25 15:03 | ECG_ITS ---
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 Measurements Intervals [place] Rate: 82 P: 30 MT: 230 QRS: -37 QRSD: 124 T: 65 QT: 403 QTc: 473 Interpretive Statements SINUS RHYTHM WITH FIRST DEGREE AV BLOCK WITH OCCASIONAL VENTRICULAR PREMATURE COMPLEXES LEFT AXIS DEVIATION [QRS AXIS < -30] LEFT VENTRICULAR HYPERTROPHY AND ST-T CHANGE Compared to ECG 11/01/2020 10:20:34 Ventricular premature complex(es) now present First degree AV block now present Left-axis deviation now present ST (T wave) deviation now present Intraventricular conduction delay no longer present T-wave abnormality no longer present Electronically Signed On 02-25-2022 15:25:58 CDT by Mayda White M.D. [id number]
[2022-02-25 15:11] VITALS: BP 169/90; PULSE 79; RESP 16; O2SAT 96
[2022-02-25 15:30] VITALS: BP 177/90; PULSE 77; RESP 12; O2SAT 95
[2022-02-25 15:30] LABS: Basophils # 0.1 10^3/uL (0.0-0.1); Basophils % 0.5 %; Hematocrit 41.6 % (42.0-52.0); Hemoglobin 14.1 g/dL (11.7-16.6); Lymphocytes # 1.7 10^3/uL (0.8-4.8); Lymphocytes % 16.4 %; Mean Corpuscular HGB Conc 33.9 g/dL (30.0-36.0); Mean Corpuscular Hemoglobin 31.1 pg (28.0-34.0); Mean Corpuscular Volume 91.8 fl (80-94); Mean Platelet Volume 10.5 fL (7.4-10.4); Monocytes # 0.6 10^3/uL (0.2-0.9); Monocytes % 5.2 %; Neutrophils # 8.14 10^3/uL (1.8-7.7); Neutrophils % 77.5 %; Nucleated Red Blood Cells % 0 %; Platelet Count 166 10^3/cmm (130-400); Red Blood Count 4.53 10^6/uL (4.1-5.3); Red Cell Distribution Width 11.9 % (12.1-15.1); White Blood Count 10.5 10^3/uL (4.0-10.0)
[2022-02-25 15:44] LABS: Alanine Aminotransferase 11 U/L (0-41); Albumin Level 3.8 g/dL (3.5-5.2); Alkaline Phosphatase 76 U/L (40-130); Anion Gap 15.5 (5-19); Aspartate Amino Transferase 15 U/L (0-40); Blood Urea Nitrogen 14 mg/dL (8-23); Calcium 8.6 mg/dL (8.5-10.5); Carbon Dioxide 24 mmol/L (22-29); Chloride 104 mmol/L (98-107); Globulin 2.9 g/dL (1.3-4.6); Glucose 128 mg/dL (65-115); Osmolality Calculated 292 mOsm/kg (285-295); Potassium 3.5 mmol/L (3.5-5.1); Sodium 140 mmol/L (136-145); Total Bilirubin 0.4 mg/dL (0.15-1.2); Total Protein 6.7 g/dL (6.6-8.7)
[2022-02-25 16:00] VITALS: BP 177/120; PULSE 79; RESP 12; O2SAT 97
[2022-02-25 16:09] LABS: Add Urine Microscopic? YES; Bilirubin Urine Neg (Negative); Blood Urine 3+ (Negative); Glucose Urine UA Norm (Normal); Ketones Urine 1+ (Negative); Leukocyte Esterase Urine Negative (Negative); Nitrate Urine Negative (Negative); Protein Urine Trace (Negative); Urine Appearance Clear (CLEAR); Urine Color Yellow (Yellow); Urobilinogen Urine 1 mg/dL (Negative); pH Urine 5 (5-7)
[2022-02-25 16:10] LABS: Add Urine Culture? No; Bacteria Urine TRACE /hpf; Mucus Urine 1+ /hpf; WBC Urine 0-4 /hpf (0-5)
[2022-02-25] MEDS: labetalol 5 mg/mL SDV 20mL 10 MG IVP (16:26)
[2022-02-25 16:36] VITALS: BP 179/95; PULSE 81; O2SAT 94
== END 2022-02-25 16:35 | disposition home or self-care (01) ==
PROVIDERS: Emergency Provider Emergency Medicine; PCP Registered Nurse
DX: R41.0 Disorientation, unspecified (principal)
CPT/HCPCS: 70450; 71045; 80053; 81001; 85025; 93005; 96374; 99285; J3490

== ENCOUNTER 2022-02-25 17:56 | Emergency (ER) | payer MEDICARE, OTHER, SELFPAY ==
[2022-02-25 18:18] VITALS: BP 168/89; PULSE 85; RESP 18; TEMP 36.9; O2SAT 95
--- NOTE | 2022-02-25 18:43 | W.ED.AMS ---
HPI - Altered Mental Status General: Chief Complaint: Altered Mental Status Stated Complaint: AMS Time Seen by Provider: 02/25/22 18:25 History of Present Illness: 82-year-old male who presents with his . The patient was seen here earlier for an episode of confusion. The patient does have a history of dementia. He was brought in by ambulance because of being disoriented at home. While he was here in the emergency department, he was oriented and appropriate. He was evaluated with labs, urinalysis and a CT of his head. His did come and picked him up and he was unable to tell her all the testing that had been completed so she was concerned that he was still confused and brought him back to the hospital. He denies complaints at this time. He is oriented x3 and appropriate. He remembers being here in the full evaluation at this time. Review of Systems General: Reports: 10 or more systems reviewed and unremarkable except in HPI and below PFSH ED PFSH: Medical History 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 Seizure disorder Seizure-like activity Stroke Surgical History History of mitral valve replacement with bioprosthetic valve Family History Mother CAD (coronary artery disease) Father , Old age, in his 90s No problems noted. Social History Smoking and tobacco status: former smoker Alcohol intake: never History of recent travel: No Physical Exam Narrative: Patient is alert and oriented x3 at this time. He is appropriate. Const: COMMON NORMALS: no acute distress and patient oriented x3 HENMT: COMMON NORMALS: normocephalic and atraumatic HEAD & SCALP: normocephalic and atraumatic Eye: COMMON NORMALS: Equal, round and reactive pupils present and EOMs intact bilaterally PUPIL: Yes Equal, round and reactive pupils present Resp: EFFORT & INSPECTION: Yes able to speak in complete sentences, Yes symmetric chest movement, No abnormal respiratory pattern and No respiratory distress Cardio: COMMON NORMALS: regular rate RATE: regular rate Neuro: COMMON NORMALS: patient oriented x3, CN's II-XII intact bilaterally, moves all extremities and no focal motor deficits Psych: COMMON NORMALS: mental status grossly normal, normal affect and denies hallucinations Course Vital Signs: Vital signs: Vital Signs Temperature 98.5 F 02/25/22 18:18 Pulse Rate 85 02/25/22 18:18 Respiratory Rate 18 02/25/22 18:18 Blood Pressure 168/89 02/25/22 18:18 Pulse Oximetry 95 02/25/22 18:18 Oxygen Delivery Me thod 02/25/22 18:18 MDM - Altered Mental Status Medical Decision Making Patient is alert and oriented at this time. He is back to baseline and denies complaints. Discussed the evaluation with his who did not accompany him with his first visit. I do not feel that further work-up is needed at this time and feel he stable for discharge home. Discharge Plan Discharge Patient Disposition: Home Clinical Impression: Dementia Condition: Stable Prescriptions: No Action levetiracetam 1,000 mg tablet 1,000 mg PO BID Qty: 180 3RF metoprolol succinate 25 mg tablet extended release 24 hr 25 mg PO BID loratadine [Claritin] 10 mg Tablet 2.5 mg PO DAILY PRN (Reason: Allergy Symptoms) rosuvastatin 10 mg tablet 10 mg PO EVERY OTHER DAY multivitamin,[id number] Tablet See Rx Instructions .ROUTE .COMPLEX Rx Instructions: 1/2 tab po QAM aspirin 81 mg tablet,delayed release (DR/EC) 81 mg PO DAILY@12 pantoprazole 40 mg tablet,delayed release (DR/EC) 40 mg PO DAILY@12 diclofenac sodium [Voltaren Arthritis Pain] 1 % Gel 2 - 4 g TOPICAL BID PRN (Reason: Pain) prednisone 20 mg Tablet 10 - 20 mg PO DAILY PRN (Reason: Rash) Plavix 75 mg tablet 75 mg PO DAILY Qty: 20 0RF Discharge Orders: Discharge ED (Routine); Ordered 02/25/22 Ordered By: Krissy Sales Referrals: Karlene Esquivel FNP [Primary Care Provider] - Discharge Diet: Usual diet Discharge Activity: Resume usual activity Patient Instructions: Dementia (ED), Opioid Safety, Pain Management Activity Restrictions/Additional Instructions: Continue your current medications. Return if you have any further problems. Follow-up next week with your neurologist. Coding Level of Care Code ED Waste/Materials Exchange Specialist for Jorge Luis Daniels
== END 2022-02-25 18:53 | disposition home or self-care (01) ==
PROVIDERS: Emergency Provider Emergency Medicine; PCP Registered Nurse
DX: F03.90 Unspecified dementia, unspecified severity, without behavioral disturbance, psychotic disturbance, mood disturbance, and anxiety (principal); Z87.891 Personal history of nicotine dependence; Z79.82 Long term (current) use of aspirin; Z79.02 Long term (current) use of antithrombotics/antiplatelets
CPT/HCPCS: 99283

== ENCOUNTER → 2022-02-28 09:22 | Outpatient (BNVA) | payer MEDICARE, OTHER, SELFPAY | PROVIDERS: PCP Registered Nurse; Visit Provider Specialist | DX: G40.309 Generalized idiopathic epilepsy and epileptic syndromes, not intractable, without status epilepticus (principal); F03.A0 Unspecified dementia, mild, without behavioral disturbance, psychotic disturbance, mood disturbance, and anxiety | CPT/HCPCS: 96116; 99215 ==

== ENCOUNTER → 2022-03-02 08:00 | Outpatient (BNVA) | payer MEDICARE, OTHER, SELFPAY | PROVIDERS: PCP Registered Nurse; Referring Provider Specialist; Visit Provider Specialist | DX: I65.29 Occlusion and stenosis of unspecified carotid artery (principal); Z87.891 Personal history of nicotine dependence; G40.309 Generalized idiopathic epilepsy and epileptic syndromes, not intractable, without status epilepticus; R41.82 Altered mental status, unspecified | CPT/HCPCS: 95812; 99213 ==

== ENCOUNTER → 2022-06-21 12:42 | Outpatient (BNVA) | payer MEDICARE, OTHER, SELFPAY | PROVIDERS: PCP Registered Nurse; Visit Provider Specialist | DX: G40.309 Generalized idiopathic epilepsy and epileptic syndromes, not intractable, without status epilepticus (principal); R41.82 Altered mental status, unspecified; I65.29 Occlusion and stenosis of unspecified carotid artery; Z79.899 Other long term (current) drug therapy | CPT/HCPCS: 99214 ==

== ENCOUNTER 2022-08-22 03:25 | Emergency (ER) | payer MEDICARE, OTHER, SELFPAY ==
--- NOTE | 2022-08-22 03:29 | ECG_ITS ---
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 Measurements Intervals [place] Rate: 84 P: 29 ND: 200 QRS: -35 QRSD: 107 T: 53 QT: 389 QTc: 460 Interpretive Statements SINUS RHYTHM LEFT AXIS DEVIATION [QRS AXIS < -30] MODERATE VOLTAGE CRITERIA FOR LVH, CONSIDER NORMAL VARIANT [MEETS CRITERIA IN ONE OF: R(aVL), S(V1), R(V5), R(V5/V6)+S(V1)] Compared to ECG 02/25/2022 15:03:21 First degree AV block no longer present ST (T wave) deviation no longer present Electronically Signed On 08-22-2022 7:08:56 CDT by Nika Bennett M.D. [id number]
[2022-08-22 03:31] VITALS: BP 137/85; PULSE 85; RESP 16; TEMP 37.1; O2SAT 94; BMI 25.1
--- NOTE | 2022-08-22 03:31 | W.ED.SEIZURE ---
HPI - Seizure General: Chief Complaint: Seizure Stated Complaint: post seizure Time Seen by Provider: 08/22/22 03:26 Source: patient and EMS Mode of arrival: EMS Limitations: no limitations History of Present Illness: HPI Narrative: 82-year-old male who has a history of seizures he states he had a seizure tonight before arrival lasted 1 to 2 minutes he did urinate on himself had a slight postictal state. He is back to baseline currently denies hitting his head denies any headache he takes Keppra for seizures he is unsure if he had actually taken his medicine or not though. Denies any fevers or vomiting. Seizure History: Yes Associated symptoms: Deny chest pain, chills or fever(s) Review of Systems Const: Denies: fever(s) or chills Eyes: Denies: blurry vision or eye discomfort ENMT: Denies: throat pain or dental pain Card: Denies: chest pain Resp: Denies: dyspnea GI: Denies: abdominal pain, nausea, vomiting or diarrhea Musc: Denies: neck pain or back pain Skin/Breast: Denies: rash Neuro: Reports: seizure-like activity; Denies: headache(s) PFS ED PFSH: Medical History 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 Seizure disorder Seizure-like activity Stroke Surgical History History of mitral valve replacement with bioprosthetic valve Family History Mother CAD (coronary artery disease) Father , Old age, in his 90s No problems noted. Social History Smoking and tobacco status: former smoker Quit status (tobacco): has quit using tobacco Year quit tobacco: 1967 Former quit date comment: smoked 5 years 1/2 pack per da Alcohol intake: never Physical Exam Const: COMMON NORMALS: no acute distress, patient oriented x3 and healthy appearing HENMT: COMMON NORMALS: normocephalic and atraumatic HEAD & SCALP: normocephalic and atraumatic Eye: COMMON NORMALS: Equal, round and reactive pupils present and EOMs intact bilaterally PUPIL: Yes Equal, round and reactive pupils present Neck/C-Spine: COMMON NORMALS: full ROM and supple Chest: COMMONS NORMALS: normal inspection of the chest and normal palpation of entire chest wall Resp: COMMON NORMALS: normal respiratory effort, No retractions, No use of accessory muscles and clear to auscultation bilaterally AUSCULTATION: clear to auscultation bilaterally Cardio: COMMON NORMALS: regular rate, regular rhythm and No murmurs present (Cardio) RATE: regular rate RHYTHM: regular rhythm GI: COMMON NORMALS: Normal to inspection, nondistended, normoactive bowel sounds present, Soft to palpation, non-tender and no masses PALPATION: Yes Soft to palpation Extremity: COMMON NORMALS: normal to inspection and full ROM Neuro: COMMON NORMALS: patient oriented x3, moves all extremities and no focal motor deficits Psych: COMMON NORMALS: mental status grossly normal, Normal thought process present and cooperative THOUGHT PROCESS: Normal thought process present Skin: COMMON NORMALS: no rashes or lesions noted and no wounds GENERAL SKIN EXAM: no rashes or lesions noted Course Vital Signs: Vital signs: Vital Signs Temperature 98.8 F 08/22/22 03:31 Pulse Rate 85 08/22/22 03:31 Respiratory Rate 16 08/22/22 03:31 Blood Pressure 137/85 08/22/22 03:31 Pulse Oximetry 94 08/22/22 03:31 Oxygen Delivery Me thod Room Air 08/22/22 03:31 MDM - Seizure MDM Narrative Medical decision making narrative: Patient presents here with seizure he has a long history of seizures CBC and electrolytes are normal. He is given Keppra here he had no head injury does not need a head CT patient is stable for discharge and is to follow-up with PCP and return if worsening. Lab Data 08/22/22 03:30 08/22/22 03:30 Labs: Laboratory Results WBC 9.2 10^3/uL (4.0-10.0) 08/22/22 03:30 RBC 4.66 10^6/uL (4.1-5.3) 08/22/22 03:30 Hgb 14.5 g/dL (11.7-16.6) 08/22/22 03:30 Hct 42.5 % (42.0-52.0) 08/22/22 03:30 MCV 91.2 fl (80-94) 08/22/22 03:30 MCH 31.1 pg (28.0-34.0) 08/22/22 03:30 MCHC 34.1 g/dL (30.0-36.0) 08/22/22 03:30 RDW 11.9 % (12.1-15.1) L 08/22/22 03:30 Plt Count 157 10^3/cmm (130-400) 08/22/22 03:30 MPV 10.1 fL (7.4-10.4) 08/22/22 03:30 Neut % (Auto) 82.6 % 08/22/22 03:30 Lymph % (Auto) 13.3 % 08/22/22 03:30 [place] % (Auto) 3.3 % 08/22/22 03:30 Eos % (Auto) 0.1 % 08/22/22 03:30 Baso % (Auto) 0.5 % 08/22/22 03:30 Neut # (Auto) 7.55 10^3/uL (1.8-7.7) 08/22/22 03:30 Lymph # (Auto) 1.2 10^3/uL (0.8-4.8) 08/22/22 03:30 [place] # (Auto) 0.3 10^3/uL (0.2-0.9) 08/22/22 03:30 Eos # (Auto) 0.0 10^3/uL (0.0-0.8) 08/22/22 03:30 Baso # (Auto) 0.1 10^3/uL (0.0-0.1) 08/22/22 03:30 Nucleated RBC % (auto) 0 % 08/22/22 03:30 Nucleated RBCs # 0.0 /100WBC 08/22/22 03:30 Sodium 137 mmol/L (136-145) 08/22/22 03:30 Potassium 4.4 mmol/L (3.5-5.1) 08/22/22 03:30 Chloride 102 mmol/L (98-107) 08/22/22 03:30 Carbon Dioxide 22 mmol/L (22-29) 08/22/22 03:30 Anion Gap 17.4 (5-19) 08/22/22 03:30 BUN 15 mg/dL (8-23) 08/22/22 03:30 Creatinine 0.9 mg/dL (0.7-1.2) 08/22/22 03:30 GFR Calculation Not Reportable 08/22/22 03:30 Glucose 142 mg/dL (65-115) H 08/22/22 03:30 Calculated Osmolality 287 mOsm/kg (285-295) 08/22/22 03:30 Calcium 8.9 mg/dL (8.5-10.5) 08/22/22 03:30 Total Bilirubin 0.4 mg/dL (0.15-1.2) 08/22/22 03:30 AST 21 U/L (0-40) 08/22/22 03:30 ALT 16 U/L (0-41) 08/22/22 03:30 Alkaline Phosphatase 73 U/L (40-130) 08/22/22 03:30 Total Protein 6.7 g/dL (6.6-8.7) 08/22/22 03:30 Albumin 3.8 g/dL (3.5-5.2) 08/22/22 03:30 Globulin 2.9 g/dL (1.3-4.6) 08/22/22 03:30 EKG Data EKG 1: Attestation: I personally reviewed and interpreted this EKG as follows: EKG interpretation date: 08/22/22 EKG interpretation time: 03:34 Interpretation: nsr hr [address] or t wave abnormalities qrs 107 qtc 430 Discharge Plan Discharge Patient Disposition: Home Clinical Impression: Generalized seizure Condition: Stable Prescriptions: No Action Plavix 75 mg tablet 75 mg PO DAILY Qty: 90 3RF levetiracetam 1,000 mg tablet See Rx Instructions .ROUTE .COMPLEX Qty: 180 0RF Dose Instruction: Take 1 tablet by mouth twice daily Rx Instructions: Take 1 tablet by mouth twice daily metoprolol succinate 25 mg tablet extended release 24 hr 25 mg PO BID loratadine [Claritin] 10 mg Tablet 2.5 mg PO DAILY PRN (Reason: Allergy Symptoms) rosuvastatin 10 mg tablet 10 mg PO EVERY OTHER DAY multivitamin,[id number] Tablet See Rx Instructions .ROUTE .COMPLEX Rx Instructions: 1/2 tab po QAM aspirin 81 mg tablet,delayed release (DR/EC) 81 mg PO DAILY@12 pantoprazole 40 mg tablet,delayed release (DR/EC) 40 mg PO DAILY@12 diclofenac sodium [Voltaren Arthritis Pain] 1 % Gel 2 - 4 g TOPICAL BID PRN (Reason: Pain) prednisone 20 mg Tablet 10 - 20 mg PO DAILY PRN (Reason: Rash) Discharge Orders: Discharge ED (Routine); Ordered 08/22/22 Ordered By: Mk Houser Referrals: Karlene Esquivel FNP [Referring] - 1-3 days Discharge Diet: Advance as tolerated Discharge Activity: Resume usual activity Patient Instructions: Generalized Tonic Clonic Seizures (ED) Coding Level of Care Code ED Retail Commission Sales Associate for Jorge Luis Daniels
[2022-08-22 03:40] LABS: Basophils # 0.1 10^3/uL (0.0-0.1); Basophils % 0.5 %; Eosinophils % 0.1 %; Hematocrit 42.5 % (42.0-52.0); Hemoglobin 14.5 g/dL (11.7-16.6); Lymphocytes # 1.2 10^3/uL (0.8-4.8); Lymphocytes % 13.3 %; Mean Corpuscular HGB Conc 34.1 g/dL (30.0-36.0); Mean Corpuscular Hemoglobin 31.1 pg (28.0-34.0); Mean Corpuscular Volume 91.2 fl (80-94); Mean Platelet Volume 10.1 fL (7.4-10.4); Monocytes # 0.3 10^3/uL (0.2-0.9); Monocytes % 3.3 %; Neutrophils # 7.55 10^3/uL (1.8-7.7); Neutrophils % 82.6 %; Nucleated Red Blood Cells % 0 %; Platelet Count 157 10^3/cmm (130-400); Red Blood Count 4.66 10^6/uL (4.1-5.3); Red Cell Distribution Width 11.9 % (12.1-15.1); White Blood Count 9.2 10^3/uL (4.0-10.0)
[2022-08-22 04:05] LABS: Alanine Aminotransferase 16 U/L (0-41); Albumin Level 3.8 g/dL (3.5-5.2); Alkaline Phosphatase 73 U/L (40-130); Aspartate Amino Transferase 21 U/L (0-40); Blood Urea Nitrogen 15 mg/dL (8-23); Calcium 8.9 mg/dL (8.5-10.5); Carbon Dioxide 22 mmol/L (22-29); Chloride 102 mmol/L (98-107); Creatinine Clr Calc Pharmacy 65.5762; Globulin 2.9 g/dL (1.3-4.6); Glucose 142 mg/dL (65-115); Osmolality Calculated 287 mOsm/kg (285-295); Sodium 137 mmol/L (136-145); Total Bilirubin 0.4 mg/dL (0.15-1.2); Total Protein 6.7 g/dL (6.6-8.7)
[2022-08-22 04:12] LABS: Anion Gap 17.4 (5-19); Potassium 4.4 mmol/L (3.5-5.1)
[2022-08-22 05:26] VITALS: BP 127/81; PULSE 82; O2SAT 94
--- NOTE | 2022-08-24 12:12 | DCPLANNER ---
manager data warehouse called patient due to no primary care physician - patient stated that he sees Eva Esquivel at [facility].
== END 2022-08-22 05:23 | disposition home or self-care (01) ==
PROVIDERS: Emergency Provider Emergency Medicine; PCP Registered Nurse
DX: G40.409 Other generalized epilepsy and epileptic syndromes, not intractable, without status epilepticus (principal); Z79.82 Long term (current) use of aspirin; Z79.02 Long term (current) use of antithrombotics/antiplatelets; E78.5 Hyperlipidemia, unspecified; I10 Essential (primary) hypertension; Z86.73 Personal history of transient ischemic attack (TIA), and cerebral infarction without residual deficits; Z87.891 Personal history of nicotine dependence
CPT/HCPCS: 80053; 85025; 93005; 96365; 99284; J1953

== ENCOUNTER → 2022-08-25 13:26 | Outpatient (BNVA) | payer MEDICARE, OTHER, SELFPAY | PROVIDERS: PCP Registered Nurse; Visit Provider Specialist | DX: R56.9 Unspecified convulsions (principal); I65.29 Occlusion and stenosis of unspecified carotid artery; G37.9 Demyelinating disease of central nervous system, unspecified | CPT/HCPCS: 96116; 99215 ==

== ENCOUNTER → 2022-11-22 14:22 | Outpatient (BNVA) | payer MEDICARE, OTHER, SELFPAY | PROVIDERS: PCP Family Medicine; Visit Provider Specialist | DX: G40.309 Generalized idiopathic epilepsy and epileptic syndromes, not intractable, without status epilepticus (principal); G37.9 Demyelinating disease of central nervous system, unspecified; I65.29 Occlusion and stenosis of unspecified carotid artery; R41.89 Other symptoms and signs involving cognitive functions and awareness; Z87.891 Personal history of nicotine dependence | CPT/HCPCS: 99213 ==

== ENCOUNTER 2023-02-12 12:52 | Outpatient (CLI) | payer MEDICARE, OTHER, SELFPAY ==
--- NOTE | 2023-02-12 13:30 | USCV_ITS ---
Verónica Armas Age: 82 Gender: M : 1940 Exam Date: 02/12/2023 13:11 Ordering Phys: Quinn Pope MD (Andy) ([email or web address] [place]) Technologist: CT Exam Location: [facility] [place] Indication: stenosis Risk Factors: Previous Vascular Surgery: Right Brachial BP: / Left Brachial BP: / Right Left Velocity (cm/s) Spectral Plaque Velocity (cm/s) Spectral Plaque Syst/Diast Broadening Syst/Diast Broadening 65.30/ 17.20 Prox CCA 85.50 / 14.70 61.10/ 10.90 Mid CCA 70.55 / 17.30 52.30/ 13.10 Distal CCA 65.30 / 17.20 222.60/58.40 Prox ICA 61.30 / 13.40 178.80/47.40 Mid ICA 51.10 / 16.00 94.60/ 24.00 Distal ICA 70.20 / 24.90 66.40 ECA 86.40 3.41 ICA/CCA 0.82 Antegrade Vertebral Antegrade 25.50/ 5.90 cm/s 67.50/ 20.50 cm/s Tri Subclavian Tri 95.40 106.0 0 FINDINGS Comparison:. 01/24/22. Moderate obstructive lesions noted in the right internal carotid artery estimated at 50-69 % stenosis. No significant left ICA stenosis. Tortuous carotid arteries. Bilateral carotid plaque. Low velocity right vertebral artery. Mixed velocity signal in right subclavian artery. CONCLUSIONS Right ICA stenosis 50-69%. Left ICA stenosis < 50%. Prevertebral steal right vertebral artery waveform. Diffuse atherosclerotic plaque, similar to the prior exam. Dr. Imani Marquez DO (Electronically Signed) Final Date: 12 February 2023 15:47 S
== END 2023-02-12 12:53 | disposition home or self-care (01) ==
PROVIDERS: PCP Family Medicine; Visit Provider Thoracic Surgery (Cardiothoracic Vascular Surgery)
DX: I65.23 Occlusion and stenosis of bilateral carotid arteries (principal); I65.01 Occlusion and stenosis of right vertebral artery
CPT/HCPCS: 93880

== ENCOUNTER → 2023-03-01 09:33 | Outpatient (BNVA) | payer MEDICARE, OTHER, SELFPAY | PROVIDERS: PCP Family Medicine; Visit Provider Thoracic Surgery (Cardiothoracic Vascular Surgery) | DX: I65.21 Occlusion and stenosis of right carotid artery (principal); Z87.891 Personal history of nicotine dependence; I10 Essential (primary) hypertension | CPT/HCPCS: 99213 ==

== ENCOUNTER 2023-06-27 11:57 | Outpatient (CLI) | payer MEDICARE, OTHER, SELFPAY ==
[2023-06-28 09:10] LABS: Levetiracetam Immunoassy 66.7 mcg/mL (6.0-46.0)
== END 2023-06-27 11:58 | disposition home or self-care (01) ==
LOC: LAB 12:01
PROVIDERS: PCP Family Medicine; Visit Provider Specialist
DX: G40.309 Generalized idiopathic epilepsy and epileptic syndromes, not intractable, without status epilepticus (principal); I63.9 Cerebral infarction, unspecified; R41.82 Altered mental status, unspecified; G37.9 Demyelinating disease of central nervous system, unspecified
CPT/HCPCS: 36415; 80177

== ENCOUNTER → 2023-07-20 14:46 | Outpatient (BNVA) | payer MEDICARE, OTHER, SELFPAY | PROVIDERS: PCP Family Medicine; Visit Provider Specialist | DX: G40.309 Generalized idiopathic epilepsy and epileptic syndromes, not intractable, without status epilepticus (principal) | CPT/HCPCS: 95816 ==

== ENCOUNTER → 2023-11-21 12:45 | Outpatient (BNVA) | payer MEDICARE, OTHER, SELFPAY | PROVIDERS: PCP Family Medicine; Visit Provider Specialist | DX: G40.309 Generalized idiopathic epilepsy and epileptic syndromes, not intractable, without status epilepticus (principal); G37.9 Demyelinating disease of central nervous system, unspecified; I65.29 Occlusion and stenosis of unspecified carotid artery | CPT/HCPCS: 99213 ==

== ENCOUNTER → 2024-02-25 15:29 | Outpatient (BNVA) | payer MEDICARE, OTHER, SELFPAY | PROVIDERS: PCP Family Medicine; Visit Provider Internal Medicine Cardiovascular Disease | DX: I65.22 Occlusion and stenosis of left carotid artery (principal); I10 Essential (primary) hypertension; Z95.3 Presence of xenogenic heart valve | CPT/HCPCS: 99214 ==

== ENCOUNTER → 2024-11-18 11:35 | Outpatient (BNVA) | payer MEDICARE, OTHER, SELFPAY | PROVIDERS: PCP Family Medicine; Visit Provider Specialist | DX: G40.309 Generalized idiopathic epilepsy and epileptic syndromes, not intractable, without status epilepticus (principal); G37.9 Demyelinating disease of central nervous system, unspecified; I65.22 Occlusion and stenosis of left carotid artery; R41.82 Altered mental status, unspecified; I65.29 Occlusion and stenosis of unspecified carotid artery | CPT/HCPCS: 36415; 80053; 80177; 84443; 85025; 99213 ==

== ENCOUNTER 2024-12-30 12:18 | Emergency (ER) | payer MEDICARE, OTHER, SELFPAY ==
[2024-12-30 12:18] VITALS: BP 161/84; PULSE 63; RESP 16; TEMP 36.9; O2SAT 96; BMI 27.0
--- NOTE | 2024-12-30 12:23 | CT_ITS ---
WS: [id number] CT HEAD TECHNIQUE: Noncontrast CT of the head obtained from the skullbase to the vertex. CLINICAL INFORMATION: seizure, different than usual COMPARISON: 2021 DLP: 1015.[address] scans at [facility] use at least one of these dose optimization techniques: automated exposure control; mA and/or kV adjustment per patient size (includes targeted exams where dose is matched to clinical indication); or iterative reconstruction. FINDINGS: No evidence of intracranial hemorrhage or mass effect. Ventricular system and basal cisterns are patent. Moderate small vessel changes with moderate parenchymal volume loss. No extra-axial fluid collections. No evidence of mass or mass effect. Vascular calcification. Tiny chronic lacunar infarcts in the cerebellum, LEFT greater than RIGHT. Tiny chronic recurrent infarcts in the LEFT greater than RIGHT periventricular white matter. Paranasal sinuses and mastoid air cells are well aerated. .Normal visualized soft tissues. CT/CT head wo con* [id number] IMPRESSION: 1. No evidence of intracranial hemorrhage or mass effect. 2. No acute intracranial findings.
--- NOTE | 2024-12-30 12:24 | W.ED.SEIZURE ---
HPI - Seizure General: Chief Complaint: Seizure Stated Complaint: Seizure History of Present Illness: HPI Narrative: 84-year-old man with a history of seizure disorder on Keppra therapy after head injury a couple of years ago, carotid artery stenosis, history of stroke, peripheral vascular disease, hyperlipidemia and hypertension who presents to the emergency room after having had seizure-like activity this afternoon. [facility] by [facility] from the [facility]. He does not remember the event. He normally has a tonic-clonic seizure but they state this was different and that he had more of a absents type seizure. No loss of bowel or bladder. No injuries. He has no other complaints. No chest pain. No cough. No abdominal pain. No nausea or vomiting. Currently no focal motor deficits and no altered mental status. Seizure History: Yes Related Data Home Medications ?Medication ?Instructions ?Recorded ?Confirmed loratadine 10 mg tablet (Claritin) 2.5 mg PO DAILY PRN Allergy 06/04/20 02/25/24 Symptoms metoprolol succinate 25 mg 25 mg PO BID 06/04/20 02/25/24 tablet,extended release 24 hr rosuvastatin 10 mg tablet 10 mg PO EVERY OTHER DAY 06/04/20 02/25/24 aspirin 81 mg tablet,delayed 81 mg PO DAILY@12 11/01/20 02/25/24 release multivitamin,[id number]-jsil-nkuiljej See Rx Instructions .Route .COMPLEX 11/01/20 02/25/24 pantoprazole 40 mg tablet,delayed 40 mg PO DAILY@12 11/01/20 02/25/24 release prednisone 20 mg tablet 10 - 20 mg PO DAILY PRN Rash 07/09/21 02/25/24 Previous Rx's ?Medication ?Instructions ?Recorded amlodipine 5 mg tablet 5 mg PO DAILY #90 tabs 04/03/24 clopidogrel 75 mg tablet (Plavix) 75 mg PO DAILY #90 tabs 06/23/24 levetiracetam 750 mg tablet 1,500 mg (2 x 750 mg) PO BID 90 08/14/24 days #360 tabs Allergies Allergy/AdvReac Type Severity Reaction Status Date / Time azithromycin Allergy Unknown Verified 11/18/24 12:05 codeine Allergy ADR/ALGY-Pa Verified 11/18/24 12:05 lpitations Penicillins Allergy Unknown Verified 11/18/24 12:05 Review of Systems Narrative: Constitutional symptoms: Negative except as documented in HPI. Skin symptoms: Negative except as documented in HPI. Eye symptoms: Negative except as documented in HPI. ENMT symptoms: Negative except as documented in HPI. Respiratory symptoms: Negative except as documented in HPI. Cardiovascular symptoms: Negative except as documented in HPI. Gastrointestinal symptoms: Negative except as documented in HPI. Genitourinary symptoms: Negative except as documented in HPI. Musculoskeletal symptoms: Negative except as documented in HPI. Neurologic symptoms: Negative except as documented in HPI. Psychiatric symptoms: Negative except as documented in HPI. Endocrine symptoms: Negative except as documented in HPI. PFSH ED PFSH: Medical History (Updated 12/30/24 @ 13:39 by Alix Cordon MD) Generalized epilepsy Carotid artery stenosis without cerebral infarction Seizure disorder Seizure-like activity Stroke Peripheral vascular disease With severe right carotid artery stenosis. Dyslipidemia Hypertension Surgical History History of mitral valve replacement with bioprosthetic valve Family History Mother CAD (coronary artery disease) Father , Old age, in his 90s No problems noted. Social History Smoking and tobacco/nicotine status: former use of tobacco/nicotine (quit 1967) Quit status (tobacco/nicotine): has quit using Year quit tobacco: 1967 Former quit date comment: smoked 5 years 1/2 pack per da Alcohol intake: never Physical Exam Narrative: EXAM NARRATIVE: General: Alert, no acute distress. Skin: Warm, dry. Head: Normocephalic, atraumatic. Neck: Supple, trachea midline. Eye: Extraocular movements are intact. Ears, nose, mouth and throat: mucosa moist. Cardiovascular: Regular, Normal peripheral perfusion. Respiratory: Lungs are clear to auscultation, respirations are non-labored, breath sounds are equal, Symmetrical chest wall expansion. Gastrointestinal: Soft, Nontender, Non distended Musculoskeletal: Normal ROM, no deformity. Neurological: Alert and oriented, No focal neurological deficit observed. Psychiatric: Cooperative, appropriate mood & affect. Course Vital Signs: Vital signs: Vital Signs Temperature 98.4 F 12/30/24 12:18 Pulse Rate 63 12/30/24 12:18 Respiratory Rate 16 12/30/24 12:18 Blood Pressure 161/84 12/30/24 12:18 Pulse Oximetry 96 12/30/24 12:18 Oxygen Delivery Me thod Room Air 12/30/24 12:18 MDM - Seizure MDM Narrative Medical decision making narrative: Medical decision making: Differential diagnosis for this patient with a complaint of seizure like activity would include but not be limited to, and based on the above HPI, review of systems and physical exam: seizure, DT's, alcohol withdrawal, brain malignancy, pseudo-seizure, syncope. Orders placed to evaluate differential diagnosis based on the above differential, HPI and physical exam CT head: No acute intracranial process. no intracranial hemorrhage, no evidence of infarct. no evidence of acute fracture.This was reviewed and interpreted by myself the ER physician. Lab Review: Laboratory results were reviewed and interpreted by myself the emergency room physician No leukocytosis. No anemia. No renal failure. Lactic acid is negative. I reviewed the patient's medical record. Reexamination: Patient remained stable. No increased work of breathing. No altered mental status. No focal motor deficits. No further seizure-like activity Assessment and plan: Seizure ?1500 mg IV dose of Keppra here in the emergency room - Discharged home - Discussed plan with patient. Answered any questions. - Evaluation and treatment of this problem were appropriate in the emergency setting. Lab Data 12/30/24 12:46 12/30/24 12:46 Labs: Radiology Impressions Head CT 12/30/24 12:23 IMPRESSION: 1. No evidence of intracranial hemorrhage or mass effect. 2. No acute intracranial findings. Laboratory Results WBC 8.28 10^3/uL (3.29-11.43) 12/30/24 12:46 RBC 4.42 10^6/uL (3.85-5.65) 12/30/24 12:46 Hgb 14.00 g/dL (11.27-16.99) 12/30/24 12:46 Hct 40.6 % (37-53) 12/30/24 12:46 MCV 91.9 fl (82-101) 12/30/24 12:46 MCH 31.7 pg (27-33) 12/30/24 12:46 MCHC 34.5 g/dL (30-55) 12/30/24 12:46 RDW 11.9 % (12.1-15.1) L 12/30/24 12:46 Plt Count 147 10^3/cmm (157-399) L 12/30/24 12:46 MPV 9.7 fL (7.4-10.4) 12/30/24 12:46 Neut % (Auto) 60.7 % 12/30/24 12:46 Lymph % (Auto) 28.6 % 12/30/24 12:46 Leake % (Auto) 6.9 % 12/30/24 12:46 Eos % (Auto) 2.9 % 12/30/24 12:46 Baso % (Auto) 0.7 % 12/30/24 12:46 Neut # (Auto) 5.02 10^3/uL (1.8-7.7) 12/30/24 12:46 Lymph # (Auto) 2.4 10^3/uL (0.8-4.8) 12/30/24 12:46 Leake # (Auto) 0.6 10^3/uL (0.2-0.9) 12/30/24 12:46 Eos # (Auto) 0.2 10^3/uL (0.0-0.8) 12/30/24 12:46 Baso # (Auto) 0.1 10^3/uL (0.0-0.1) 12/30/24 12:46 Nucleated RBC % (auto) 0 % 12/30/24 12:46 Nucleated RBCs # 0.0 /100WBC 12/30/24 12:46 Sodium 140 mmol/L (136-145) 12/30/24 12:46 Potassium 3.9 mmol/L (3.5-5.1) 12/30/24 12:46 Chloride 102 mmol/L (98-107) 12/30/24 12:46 Carbon Dioxide 28 mmol/L (22-29) 12/30/24 12:46 Anion Gap 13.9 (5-19) 12/30/24 12:46 BUN 10 mg/dL (8-23) 12/30/24 12:46 Creatinine 0.9 mg/dL (0.7-1.2) 12/30/24 12:46 GFR Calculation Not Reportable 12/30/24 12:46 Glucose 101 mg/dL (65-115) 12/30/24 12:46 Calculated Osmolality 289 mOsm/kg (285-295) 12/30/24 12:46 Lactic Acid 1.2 mmol/L (0.5-2.2) 12/30/24 12:46 Calcium 8.9 mg/dL (8.5-10.5) 12/30/24 12:46 Total Bilirubin 0.4 mg/dL (0.15-1.2) 12/30/24 12:46 AST 17 U/L (0-40) 12/30/24 12:46 ALT 12 U/L (0-41) 12/30/24 12:46 Alkaline Phosphatase 76 U/L (40-130) 12/30/24 12:46 Total Protein 7.2 g/dL (6.6-8.7) 12/30/24 12:46 Albumin 4.2 g/dL (3.5-5.2) 12/30/24 12:46 Globulin 3.0 g/dL (1.3-4.6) 12/30/24 12:46 All radiology interpretation(s) finalized by discharge Discharge Plan Discharge Patient Disposition: Home Clinical Impression: Epileptic seizure Condition: Stable Prescriptions: No Action amlodipine 5 mg tablet 5 mg PO DAILY Qty: 90 3RF Plavix 75 mg tablet 75 mg PO DAILY Qty: 90 3RF levetiracetam 750 mg tablet 1,500 mg PO BID 90 Days Qty: 360 3RF metoprolol succinate 25 mg tablet extended release 24 hr 25 mg PO BID loratadine [Claritin] 10 mg Tablet 2.5 mg PO DAILY PRN (Reason: Allergy Symptoms) rosuvastatin 10 mg tablet 10 mg PO EVERY OTHER DAY multivitamin,[id number]-zwyvmbjt Tablet See Rx Instructions .ROUTE .COMPLEX Rx Instructions: 1/2 tab po QAM aspirin 81 mg tablet,delayed release (DR/EC) 81 mg PO DAILY@12 pantoprazole 40 mg tablet,delayed release (DR/EC) 40 mg PO DAILY@12 prednisone 20 mg Tablet 10 - 20 mg PO DAILY PRN (Reason: Rash) Discharge Orders: Discharge ED (Routine); Ordered 12/30/24 Ordered By: Alix Cordon Referrals: Claire Stein DO [Primary Care Provider, Family Practice] Discharge Diet: As Directed Discharge Activity: Resume usual activity Patient Instructions: Epilepsy in Older Adults (ED), Opioid Safety, Pain Management, Patient Portal & María Instructions Activity Restrictions/Additional Instructions: Thank you for choosing [facility] for your healthcare needs today. You have been screened and evaluated and felt safe for discharge. Health conditions do change or evolve sometimes and as such it is important that you follow up with your Primary Doctor to be re checked, 3-5 days is a general good time frame for follow up. You are always welcome to return to the ED for re assessment if your symptoms are worsening or you have new concerns Print Language: Polish Coding Level of Care Code ED President [employer] for Jorge Luis Daniels
--- NOTE | 2024-12-30 12:25 | ECG_ITS ---
[facility] Test Date: 2024-12-30 Pat Name: Verónica Armas Department: Room: Gender: Male Oil Inspector: : 1940 Requested By: Alix Bautista Order Number: [id number] Mary Kay MD: Kalayn Hager M.D. Measurements Intervals Clio Rate: 62 P: 54 CT: 223 QRS: -35 QRSD: 114 T: 47 QT: 444 QTc: 451 Interpretive Statements SINUS RHYTHM WITH FIRST DEGREE AV BLOCK WITH OCCASIONAL VENTRICULAR PREMATURE COMPLEXES LEFT AXIS DEVIATION [QRS AXIS < -30] MODERATE INTRAVENTRICULAR CONDUCTION DELAY [105+ ms QRS DURATION, 80+ ms Q/S IN V1/V2, NO Q AND 60+ ms R IN I/aVL/V5/V6] MODERATE VOLTAGE CRITERIA FOR LVH, CONSIDER NORMAL VARIANT [MEETS CRITERIA IN ONE OF: R(aVL), S(V1), R(V5), R(V5/V6)+S(V1)] Compared to ECG 08/22/2022 03:45:36 Ventricular premature complex(es) now present First degree AV block now present Electronically Signed On 12-31-2024 21:04:03 CDT by Kalyan Hager M.D. [email or web address]
--- OUTSIDE RECORDS SUMMARY | 2024-12-30 12:25 | XMS_ITS | Clinical Summary ---
Author Organization [facility] Address [address] Attn: [place] [address] Care Team Providers Care Bingo Clerk Name Role Phone EmilClaire Lily TOVAR Primary Care Provider [phone] Allergies Active Allergy Reactions Criticality Noted Date Comments Codeine Other (See Comments) 03/23/2020 Side effect Erythromycin Other (See Comments) 03/23/2020 Hyper Penicillins Unknown 08/25/2022 Medications clopidogreL (PLAVIX) 75 mg Tablet Take 1 Tablet (75 mg) by mouth daily. 30 Tablet 0 1 Active triamcinolone acetonide (KENALOG) 0.1 % CreamIndications:Ra sh and nonspecific skin eruption Apply to affected area 2 times daily. 60 Gram 2 4 Active mupirocin calcium (BACTROBAN) 2 % CreamIndications:No se irritation Apply to affected area 2 times daily. 30 Gram 4 Active levETIRAcetam (KEPPRA) 750 mg Tablet Take 750 mg by mouth 2 times daily. 4 Active predniSONE (DELTASONE) 20 mg tabletIndications:R ivonne and nonspecific skin eruption Take 1 Tablet (20 mg) by mouth 1 time daily as needed (rash). 20 Tablet 2 4 Active amLODIPine (NORVASC) 5 mg tablet Take 5 mg by mouth daily. Active pantoprazole (PROTONIX) 40 mg Tablet, Delayed Release (E.C.) Take 1 tablet by mouth once daily 100 Tablet 2 5 Active rosuvastatin (CRESTOR) 10 mg tabletIndications:M ixed hyperlipidemia Take 1 Tablet (10 mg) by mouth daily. 100 Tablet 2 5 Active metoprolol succinate (TOPROL XL) 25 mg Extended Release 24 hour tabletIndications:E ssential hypertension Take 1 tablet by mouth twice daily 180 Tablet 1 5 Active fluticasone propionate (FLONASE) 50 mcg/spray [place], Suspension nasal inhalerIndications: Seasonal allergic rhinitis due to pollen Use 2 spray(s) in each nostril once daily 16 Gram 5 Active Active Problems Problem Noted Date Diagnosed Date History of CVA with residual deficit 07/29/2023 Venous insufficiency of both lower extremities 0 07/29/2023 Gastroesophageal reflux disease without esophagi tis 02/05/2022 Seasonal allergic rhinitis due to pollen 022 Seizure disorder 07/15/2021 Essential hypertension 07/15/2021 Stenosis of carotid artery 07/15/2021 Mixed hyperlipidemia 07/15/2021 Resolved Problems Problem Noted Date Diagnosed Date Resolved Date Dementia 10/30/2022 05/21/2023 Encounters Date Type Department Care Team Description 12/23/2024 External Device Data [facility] Provider, Abstract 12/09/2024 External Device Data [facility] Provider, Abstract 10/28/2024 [facility] [address] [place] [address] Claire Stein, DO Seasonal allergic rhinitis due to pollen 10/21/2024 External Device Data [facility] Provider, Abstract 10/07/2024 External Device Data [facility] Provider, Abstract 10/05/2024 [facility] [address] [place] [address] Claire Stein, DO Essential hypertension from Last 3 Months Immunizations Immunization Administration Dates Next Due (ADACEL/BOOSTRIX)(10 YR UP) TDAP VACCINE, 0.5ML, IM 06/27/2021 (SPIKEVAX) (12 YRS UP PRIMAR Y SERIES) COVID-19 VACCINE - MRNA-1273(PF) 100 MCG/0.5 ML IM SUSP 08/10/2020,07/07/2020 Family History Medical History Relation Name Comments Heart Disease Mother Relation Name Status Comments Father Alive Mother Alive Social History Tobacco Use Types Packs/Day Years Used Date Smoking Tobacco: Never Smokeless Tobacco: Never Alcohol Use Standard Drinks/Week Comments Never 0 (1 standard drink = 0.6 oz pur e alcohol) Financial Resource Strain Answer Date R ecorded How hard is it for you to pa y for the very basics like food, housing, medical care, and heating? Patient declined 03/02/2022 Food Insecurity Answer Date Recorded In the past 12 months, have you worried that your food would run out before you had money to buy more? Never true 03/02/2022 In the past 12 months, did y ou run out of food and didn't have money to buy more? Never true 03/02/2022 Transportation Needs Answer Date Record ed In the past 12 months, has l ack of transportation kept you from medical appointments or from getting medications? No 03/02/2022 Lack of Transportation (Non-Medical) Not on file 03/02/2022 Sex and Gender Information Value Date Recorded Sex Assigned at Not on file Legal Sex Male 9:33 PM INTERN BRAND Gender Identity Not on file Sexual Orientation Not on file Last Filed Vital Signs Vital Sign Reading Time Taken Comments Blood Pressure 138/70 04/03/2024 1:24 PM INTERN BRAND Pulse 67 04/03/2024 1:20 PM INTERN BRAND Temperature 37.1 C (98.8 F) 04/03/2024 1:20 PM INTERN BRAND Respiratory Rate 18 05/21/2023 10:54 AM INTERN BRAND Oxygen Saturation 97% 04/03/2024 1:20 PM INTERN BRAND Inhaled Oxygen Concentration - - Weight 82.6 kg (182 lb) 04/03/2024 1:20 PM INTERN BRAND Height 175.3 cm (5' 9 ) 04/03/2024 1:20 PM INTERN BRAND s tated Body Mass Index 26.88 04/03/2024 1:20 PM INTERN BRAND Plan of Treatment Health Maintenance Due Date Last Done Comments PNEUMOCOCCAL VACCINE 50+ YEA RS (1 of 1 - PCV) 02/15/1990 ZOSTER VACCINE (1 of 2) 02/15/1990 RSV VACCINE (60+ or ) (1 - 1-dose 75+ series) 02/15/2015 INFLUENZA VACCINE (#1) 2024 2, 03/02/2021, 03/02/2021, Additional history exists COVID-19 Vaccine (3 - 2024-2 6 season) 2024 08/10/2020, 07/07/2020 Traditional Medicare (ACO) A nnual Wellness Visit 04/04/2025 04/03/2024, 03/02/2022 DTAP/TDAP/TD VACCINES (2 - T d or Tdap) 06/28/2031 06/27/2021 Insurance MEDICARE PART A AND B [place] [employer] [place] [id number] Care Teams Bingo Clerk Relationship Specialty Start Date End Date Claire Stein DO [address] [place] [id number] PCP - General Family Practice 05/21/23
--- OUTSIDE RECORDS SUMMARY | 2024-12-30 12:25 | XMS_ITS | Encounter Summary ---
Author Organization [facility] Address [address] [place] [address] Care Team Providers Care Tape Sewer Name Role Phone Claire Stein DO Primary Care Provider [phone] Encounter Details Date Type Department Care Team (Late st Contact Info) Description 12/23/2024 External Device Data [facility] ABSTRACTION Provider, Abstract NO ADDRESS ON FILE Social History Tobacco Use Types Packs/Day Years [...] on file Legal Sex Male 9:33 PM MANAGER SPANISH Gender Identity Not on file Sexual Orientation Not on file documented as of this encounter Plan of Treatment Not on file documented as of this encounter Visit Diagnoses Not on filedocumented in this encounter Care Teams Tape Sewer Relationship Specialty Start Date End Date Claire Stein DO [address] [place] [id number] PCP - General Family Practice 05/21/23 documented as of this encounter
--- OUTSIDE RECORDS SUMMARY | 2024-12-30 12:25 | XMS_ITS | Clinical Summary ---
Author Organization [facility] Address [address] [place] [address] Care Team Providers Care Supervisor Sandblaster Name Role Phone Unavailable Primary Care Provider Unavailabl e Allergies Active Allergy Reactions Criticality Noted Date Comments Codeine Other (See Comments) 03/23/2020 Side effect Erythromycin Other (See Comments) 03/23/2020 Hyper Medications metoprolol succinate (TOPROL XL) 25 mg Extended Release 24 hour tabletIndications:E ssential hypertension TAKE 1 TABLET BY MOUTH TWICE DAILY 180 Tablet 3 0 Active rosuvastatin (CRESTOR) 10 mg tabletIndications:M ixed hyperlipidemia Take 1 Tablet (10 mg) by mouth daily. 90 Tablet 3 0 Active pantoprazole (PROTONIX) 40 mg Tablet, Delayed Release (E.C.) Take 1 Tablet (40 mg) by mouth daily. 90 Tablet 1 1 Active clopidogreL (PLAVIX) 75 mg Tablet Take 1 Tablet (75 mg) by mouth daily. 30 Tablet 1 Active levETIRAcetam (KEPPRA) 500 mg tablet Take 1 Tablet (500 mg) by mouth 2 times daily. 60 Tablet 1 Active triamcinolone acetonide (KENALOG) 0.5 % Cream Apply small amount to rash area on left shoulder BID until improved. 30 Gram 1 1 Active Active Problems No known active problems Immunizations Immunization Administration Dates Next Due (SPIKEVAX) (12 YRS UP PRIMAR Y SERIES) COVID-19 VACCINE - MRNA-1273(PF) 100 MCG/0.5 ML IM SUSP 08/10/2020,07/07/2020 Family History Medical History Relation Name Comments Heart Disease Mother Relation Name Status Comments Father Alive Mother Alive Social History Tobacco Use Types Packs/Day Years Used Date Smoking Tobacco: Never Smokeless Tobacco: Never Tobacco Cessation:Counseling Given: Yes Alcohol Use Standard Drinks/Week Comments Never 0 (1 standard drink = 0.6 oz pur e alcohol) Sex and Gender Information Value Date Recorded Sex Assigned at Not on file Legal Sex Male 9:03 AM CDT Gender Identity Not on file Sexual Orientation Not on file Last Filed Vital Signs Vital Sign Reading Time Taken Comments Blood Pressure 134/81 06/14/2020 3:25 PM CHIEF TELEPHONE OPERATOR Pulse 68 06/14/2020 3:25 PM CHIEF TELEPHONE OPERATOR Temperature 36.7 C (98.1 F) 06/14/2020 3:25 PM CHIEF TELEPHONE OPERATOR Respiratory Rate - - Oxygen Saturation 97% 06/14/2020 3:25 PM CHIEF TELEPHONE OPERATOR Inhaled Oxygen Concentration - - Weight 88.9 kg (196 lb) 06/14/2020 3:25 PM CHIEF TELEPHONE OPERATOR Height 172.7 cm (5' 8 ) 06/14/2020 3:25 PM CHIEF TELEPHONE OPERATOR Body Mass Index 29.8 06/14/2020 3:25 PM CHIEF TELEPHONE OPERATOR Plan of Treatment Health Maintenance Due Date Last Done Comments DTAP/TDAP/TD VACCINES (1 - Tdap) 02/15/1959 PNEUMOCOCCAL VACCINE 50+ YEA RS (1 of 1 - PCV) 02/15/1990 ZOSTER VACCINE (1 of 2) 02/15/1990 RSV VACCINE (60+ or ) (1 - 1-dose 75+ series) 02/15/2015 INFLUENZA VACCINE (#1) 2024 03/23/2020, 2019 COVID-19 Vaccine (3 - season) 2024, 07/07/[address] [facility] [place] [address] MEDICARE PART A AND B [place] [id number]
[2024-12-30] MEDS: levETIRAcetam 1,500 MG/100 ML PREMIX 400 MG IV (12:48)
[2024-12-30 12:54] LABS: Hematocrit 40.6 % (37-53); Hemoglobin 14.00 g/dL (11.27-16.99); Mean Corpuscular HGB Conc 34.5 g/dL (30-55); Mean Corpuscular Hemoglobin 31.7 pg (27-33); Mean Corpuscular Volume 91.9 fl (82-101); Nucleated Red Blood Cells % 0 %; Platelet Count 147 10^3/cmm (157-399); Red Blood Count 4.42 10^6/uL (3.85-5.65); White Blood Count 8.28 10^3/uL (3.29-11.43)
[2024-12-30 13:10] LABS: Alanine Aminotransferase 12 U/L (0-41); Albumin Level 4.2 g/dL (3.5-5.2); Alkaline Phosphatase 76 U/L (40-130); Anion Gap 13.9 (5-19); Aspartate Amino Transferase 17 U/L (0-40); Blood Urea Nitrogen 10 mg/dL (8-23); Calcium 8.9 mg/dL (8.5-10.5); Carbon Dioxide 28 mmol/L (22-29); Chloride 102 mmol/L (98-107); Creatinine Clr Calc Pharmacy 65.3530; Globulin 3.0 g/dL (1.3-4.6); Glucose 101 mg/dL (65-115); Lactic Sepsis W/Reflex 1.2 mmol/L (0.5-2.2); Osmolality Calculated 289 mOsm/kg (285-295); Potassium 3.9 mmol/L (3.5-5.1); Sodium 140 mmol/L (136-145); Total Protein 7.2 g/dL (6.6-8.7)
[2024-12-30 14:33] VITALS: BP 129/76; PULSE 65; RESP 18; O2SAT 95
== END 2024-12-30 14:56 | disposition home or self-care (01) ==
PROVIDERS: Emergency Provider Emergency Medicine; PCP Family Medicine
DX: G40.909 Epilepsy, unspecified, not intractable, without status epilepticus (principal); Z79.82 Long term (current) use of aspirin; Z87.891 Personal history of nicotine dependence; E78.5 Hyperlipidemia, unspecified; I10 Essential (primary) hypertension
CPT/HCPCS: 36415; 70450; 80053; 83605; 85025; 93005; 96374; 99285; J1953

== ENCOUNTER → 2025-02-23 12:34 | Outpatient (BNVA) | payer MEDICARE, OTHER, SELFPAY | PROVIDERS: PCP Family Medicine; Visit Provider Internal Medicine Cardiovascular Disease | DX: I65.29 Occlusion and stenosis of unspecified carotid artery (principal); I10 Essential (primary) hypertension; Z95.2 Presence of prosthetic heart valve; Z87.891 Personal history of nicotine dependence; I65.22 Occlusion and stenosis of left carotid artery | CPT/HCPCS: 99214 ==

== ENCOUNTER 2025-03-06 12:19 | Outpatient (CLI) | payer MEDICARE, OTHER, SELFPAY ==
--- NOTE | 2025-03-06 15:00 | USCV_ITS ---
Verónica Armas Age: 85 Gender: M : 1940 Exam Date: 03/06/2025 13:02 Ordering Phys: Tracy Alvarez MD ([email or web address]) Technologist: BRIE Exam Location: [facility] [place] Indication: Stenosis Risk Factors: Previous Vascular Surgery: Right Brachial BP: / Left Brachial BP: / Right Left Velocity (cm/s) Spectral Plaque Velocity (cm/s) Spectral Plaque Syst/Diast Broadening Syst/Diast Broadening 69.40/ 14.00 Prox CCA 87.80 / 18.70 78.30/ 18.30 Mid CCA 102.50/ 28.20 64.10/ 13.20 Distal CCA 89.30 / 23.20 35.10/ 13.90 Prox ICA 68.30 / 15.80 232.60/65.50 Mid ICA 58.20 / 15.10 97.50/ 21.90 Distal ICA 45.00 / 15.30 67.00 ECA 63.40 0.50 ICA/CCA 0.80 Antegrade Vertebral Antegrade 39.20/ 10.20 cm/s 51.30/ 15.40 cm/s Tri Subclavian Tri 152.4 98.10 0 FINDINGS Comparison:. 02/12/23 High grade stenosis right ICA, similar to prior exam. Diffuse bilateral scattered calcified plaque and intimal thickening throughout the common carotid arteries and extending through the bifurcation. Antegrade vertebral arteries. CONCLUSIONS Right ICA stenosis 50-69%. No interval change in stenosis since prior exam. Left ICA stenosis < 50%. Dr. Imani Marquez DO (Electronically Signed) Final Date: 06 March 2025 15:31 S
== END 2025-03-06 12:20 | disposition home or self-care (01) ==
LOC: RAD 12:20
PROVIDERS: PCP Family Medicine; Visit Provider Internal Medicine Cardiovascular Disease
DX: I65.23 Occlusion and stenosis of bilateral carotid arteries (principal)
CPT/HCPCS: 93880